=== PATIENT | male | born 1970 | race American Indian/Alaskan Native ===

== ENCOUNTER 2020-05-06 21:54 | Inpatient (IN) | payer OTHER ==
--- NOTE | 2020-05-06 22:23 | Emergency Department Report ---
ED General Adult HPI - General Chief complaint: Altered Mental Status Stated complaint: patient is confused and does not articulate a complaint PUI?: No Time Seen by Provider: 05/06/20 22:14 Source: patient, RN/MD, EMS ( EMS documentation not available at time of chart dictation ), RN notes reviewed Mode of arrival: Stretcher Limitations: Altered Mental Status, Physical Limitation - History of Present Illness Initial comments: The patient was evaluated in the emergency department for symptoms described in the history of present illness. He/she was evaluated in the context of the global COVID-19 pandemic, which necessitated consideration that the patient might be at risk for infection with the virus that causes COVID-19. Institutional protocols and algorithms that pertain to the evaluation of patients at risk for COVID-19 are in a state of rapid change based on information released by regulatory bodies including the CDC and federal and state organizations. These policies and algorithms were followed during the giancarlo issa's care in the emergency department. Please note that these policies, procedures and recommendations changed on a rapid basis. The patient is a 49-year-old gentleman. He is not known to myself previously. He may have a history of stroke and/or seizure. It is unclear what his prior diagnoses are. The patient is brought to the hospital by emergency medical services. He is awake, follows commands, but confused. He only responds "yes." Nursing team informs me that the patient is brought to the hospital for shaking activity, confusion, change in speech pattern, and right arm shaking. His last known well time is not known. It is not known who contacted 911. The listed phone number goes right to voicemail, and patient not currently accompanied by friends, family, loved one for additional information/collateral information. The patient himself is currently awake, but confused, and is not able to describe the qualitative nature of his symptoms, exacerbating factors, relieving factors, aggravating factors, and simply answers "yes." EMS documentation not available at this time for my review. -: unknown Quality: other Consistency: other Improves with: other Worsens with: other Associated Symptoms: other Treatments Prior to Arrival: other - Related Data Home Medications Medication Instructions Recorded Confirmed Last Taken Aspirin [Adult Aspirin] 81 mg PO QDAY 05/07/20 05/07/20 Unknown Atorvastatin Calcium [Lipitor] 80 mg PO QDAY 05/07/20 05/07/20 Unknown Escitalopram [Lexapro] 10 mg PO DAILY 05/07/20 05/07/20 Unknown Lisinopril/Hydrochlorothiazide 1 each PO QDAY 05/07/20 05/07/20 Unknown [Zestoretic 10-12.5 mg Tablet] levETIRAcetam [Keppra TAB] 750 mg PO BID 05/07/20 05/07/20 Unknown Allergies Allergy/AdvReac Type Severity Reaction Status Date / Time No Known Allergies Allergy Unverified 05/07/20 00:16 ED Review of Systems ROS: Stated complaint: SEIZURES Other details as noted in HPI Comment: Unobtainable due to pts medical conditions ED Past Medical Hx - Medications Home Medications: Home Medications Medication Instructions Recorded Confirmed Last Taken Type Aspirin [Adult Aspirin] 81 mg PO QDAY 05/07/20 05/07/20 Unknown History Atorvastatin Calcium [Lipitor] 80 mg PO QDAY 05/07/20 05/07/20 Unknown History Escitalopram [Lexapro] 10 mg PO DAILY 05/07/20 05/07/20 Unknown History Lisinopril/Hydrochlorothiazide 1 each PO QDAY 05/07/20 05/07/20 Unknown History [Zestoretic 10-12.5 mg Tablet] levETIRAcetam [Keppra TAB] 750 mg PO BID 05/07/20 05/07/20 Unknown History ED Physical Exam - General Limitations: Altered Mental Status, Physical Limitation General appearance: anxious, obese - Head Head exam: Present: atraumatic, normocephalic - Eye Eye exam: Present: normal appearance, PERRL, EOMI - ENT ENT exam: Present: normal exam, normal orophraynx, mucous membranes moist, normal external ear exam - Neck Neck exam: Present: normal inspection, full ROM. Absent: tenderness, menin gismus - Respiratory Respiratory exam: Present: normal lung sounds bilaterally. Absent: respiratory distress, wheezes, rales, rhonchi, stridor, decreased breath sounds - Cardiovascular Cardiovascular Exam: Present: regular rate, normal rhythm, normal heart sounds. Absent: bradycardia, tachycardia, irregular rhythm, systolic murmur, diastolic murmur, rubs, gallop - GI/Abdominal GI/Abdominal exam: Present: soft. Absent: distended, tenderness, guarding, rebound, rigid, pulsatile mass - Rectal Rectal exam: Present: deferred - Extremities Exam Extremities exam: Present: normal inspection, full ROM, pedal edema (1+ edema in the bilateral lower extremities), other (2+ pulses noted in the bilateral upper and lower extremities. There is no palpable cord. negative Homans sign. Muscular compartments are soft. The pelvis is stable.). Absent: calf tenderness - Back Exam Back exam: Present: normal inspection, full ROM. Absent: tenderness, CVA tenderness (R), CVA tenderness (L), paraspinal tenderness, vertebral tenderness - Neurological Exam Neurological exam: Present: altered, motor sensory deficit (There is 4 out of 5 strength right leg. There is 5 out of 5 strength right arm. There is 5 out of 5 strength left arm and left leg. Sensation is intact to pinch in 4 extremities.), other (There is no facial droop. The tongue is midline. Extraocular movements are intact bilaterally.) - Psychiatric Psychiatric exam: Present: normal affect, normal mood - Skin Skin exam: Present: warm, dry, intact, normal color. Absent: rash ED Course Vital Signs 05/06/20 05/06/20 05/06/20 22:15 22:20 22:30 Temperature 98.4 F Pulse Rate 64 62 68 Respiratory 16 Rate Blood Pressure 127/83 132/81 Blood Pressure 127/63 [Left] O2 Sat by Pulse 100 100 100 Oximetry O2 Sat by Pulse Oximetry [ Digit-Finger] 05/06/20 05/06/20 05/06/20 22:45 23:01 23:32 Temperature Pulse Rate 86 57 L 68 Respiratory Rate Blood Pressure 125/89 125/89 125/89 Blood Pressure [Left] O2 Sat by Pulse 100 98 100 Oximetry O2 Sat by Pulse Oximetry [ Digit-Finger] 05/06/20 05/07/20 05/07/20 23:45 00:01 00:09 Temperature Pulse Rate 63 58 L Respiratory 16 Rate Blood Pressure 136/78 137/78 Blood Pressure [Left] O2 Sat by Pulse 99 99 Oximetry O2 Sat by Pulse 99 Oximetry [ Digit-Finger] - Reevaluation(s) Reevaluation #1: 05/06/20 22:32 Differential diagnosis, including but not limited to: Stroke, seizure, pneumonia, urinary tract infection, dedication noncompliance, electrolyte derangement, drug abuse Assessment and plan: 49-year-old gentleman with seizure versus stroke. After my initial assessment, I was able to access the patient's EMS records, and also speak to his . As per EMS documentation, patient's family called 911 because the patient was shaking and may have had a seizure. As per EMS documentation, patient was complaining of tingling and pain to his right hand. EMS documents that patient had a stroke March 2020. They also indicate that since the stroke, the patient has had a right-sided deficit with weakness and trouble speaking. EMS documents normal vital signs in the field, and that the patient is ANO x2. The patient's is also currently at the bedside. She believes his last known well time is 9:00 PM. She also corroborates the aforementioned. She also states the patient was admitted to [facility] last month, and believes that he was diagnosed with seizure versus stroke or both. She endorses that the patient is taking his Keppra, denies fever, nausea, vomiting, diarrhea, urinary symptoms, and recreational drug use. He only smokes black in [place] as per his . I had extensive discussion with the patient's regarding risks and benefits of TPA. We specifically discussed the risks of hemorrhagic conversion. At the moment, she is not interested in TPA. In addition, given her endorsements and EMS documentation of stroke last month at another hospital, TPA is relatively contraindicated. We will obtain CT scan of the brain, CT angiogram head and neck, seek alternative causes for patient's convulsion, start Keppra therapy, and reassess after initial data points. Accu-Chek in the ER is currently 99. 05/06/20 22:[address] scan of the brain negative for acute findings. Patient more awake. Alert to name, able to identify his . As per my discussion with neurology Dr. Colmenares, we both agree this is unlikely to be an ischemic stroke, much more likely to be a seizure, and as per recent history of ischemic strokes last month as per family, and EMS documentation, TPA relatively contraindicated. I also had an extensive discussion with the patient and his regarding risks, benefits of TPA, and neither of them are interested in this medication at this time, which I agree with and think is reasonable. Reevaluation #2: 05/07/20 00:09 CT angiogram neck negative. Laboratory studies unremarkable. Patient resting comfortably in stretcher, and in no acute distress. 05/07/20 00:30 ct angio head negative Dr Tricia Cordero to admit patient informed and updated hes agreeable to the plan of care No further seizure/convulsive events noted. called , no answer, left voice mail for call back 05/07/20 00:33 - Pulse Oximetry Interpretation Digit-Finger Initial Pulse Oximetry Readin O2 Sat by Pulse Oximetry: 99 Actions Taken: none ED Medical Decision Making - Lab Data Result diagrams: 05/06/20 22:39 05/06/20 22:39 Vital Signs 05/06/20 22:37 O2 Sat by Pulse 99 Oximetry [ Digit-Finger] Vital Signs 05/06/20 22:54 O2 Sat by Pulse 99 Oximetry [ Digit-Finger] Lab Results 05/06/20 05/06/20 05/06/20 Range/Units 22:18 22:39 22:39 WBC 8.5 (4.5-11.0) K/mm3 RBC 4.11 (3.65-5.03) M/mm3 Hgb 13.8 (11.8-15.2) gm/dl Hct 40.1 (35.5-45.6) % MCV 98 H (84-94) fl MCH 34 H (28-32) pg MCHC 34 (32-34) % RDW 13.0 L (13.2-15.2) % Plt Count 131 L (140-440) K/mm3 Baso % (Auto) Anesthesiology Physician PT 13.0 (12.2-14.9) Sec. INR 1.00 (0.87-1.13) APTT 24.7 (24.2-36.6) Sec. Thrombin Time 16.6 (15.1-19.6) Sec. Sodium (137-145) mmol/L Potassium (3.6-5.0) mmol/L Chloride (98-107) mmol/L Carbon Dioxide (22-30) mmol/L Anion Gap mmol/L BUN (9-20) mg/dL Creatinine (0.8-1.3) mg/dL Estimated GFR ml/min BUN/Creatinine Ratio % Glucose (75-100) mg/dL POC Glucose 99 (70-105) mg/dL Calcium (8.4-10.2) mg/dL Magnesium (1.7-2.3) mg/dL Total Bilirubin (0.1-1.2) mg/dL AST (5-40) units/L ALT (7-56) units/L Alkaline Phosphatase (35-129) units/L Total Creatine Kinase (55-170) units/L CK-MB (CK-2) (0.0-4.0) ng/mL CK-MB (CK-2) Rel Index (0-4) Troponin T (0.00-0.029) ng/mL Total Protein (6.3-8.2) g/dL Albumin (3.9-5) g/dL Albumin/Globulin Ratio % Plasma/Serum Alcohol (0-0.07) % 05/06/20 05/06/20 Range/Units 22:39 22:39 WBC (4.5-11.0) K/mm3 RBC (3.65-5.03) M/mm3 Hgb (11.8-15.2) gm/dl Hct (35.5-45.6) % MCV (84-94) fl MCH (28-32) pg MCHC (32-34) % RDW (13.2-15.2) % Plt Count (140-440) K/mm3 Baso % (Auto) PT (12.2-14.9) Sec. INR (0.87-1.13) APTT (24.2-36.6) Sec. Thrombin Time (15.1-19.6) Sec. Sodium 136 L (137-145) mmol/L Potassium 3.7 (3.6-5.0) mmol/L Chloride 100.1 (98-107) mmol/L Carbon Dioxide 28 (22-30) mmol/L Anion Gap 12 mmol/L BUN 21 H (9-20) mg/dL Creatinine 0.9 (0.8-1.3) mg/dL Estimated GFR > 60 ml/min BUN/Creatinine Ratio 23 % Glucose 108 H (75-100) mg/dL POC Glucose (70-105) mg/dL Calcium 9.3 (8.4-10.2) mg/dL Magnesium 2.00 (1.7-2.3) mg/dL Total Bilirubin 1.00 (0.1-1.2) mg/dL AST 24 (5-40) units/L ALT 14 (7-56) units/L Alkaline Phosphatase 74 (35-129) units/L Total Creatine Kinase 68 (55-170) units/L CK-MB (CK-2) < 1.0 (0.0-4.0) ng/mL CK-MB (CK-2) Rel Index 1.4 (0-4) Troponin T < 0.010 (0.00-0.029) ng/mL Total Protein 6.8 (6.3-8.2) g/dL Albumin 4.5 (3.9-5) g/dL Albumin/Globulin Ratio 2.0 % Plasma/Serum Alcohol < 0.01 (0-0.07) % - EKG Data -: EKG Interpreted by In EKG shows normal: sinus rhythm Rate: normal - EKG Data When compared to previous EKG there are: previous EKG unavailable 05/06/20 22:39 Time of interpretation, 10: 40 1 PM Sinus rhythm, 61 bpm. Right axis deviation. Left posterior fascicular block. Incomplete right bundle branch block. QTC within normal limits. Left ventricular hypertrophy. Abnormal EKG. Not a STEMI. No prior for comparison. - Radiology Data Radiology results: pending, report reviewed, image reviewed CT HEAD WITHOUT CONTRAST INDICATION / CLINICAL INFORMATION: Stroke symptoms. TECHNIQUE: All CT scans at this location are performed using CT dose reduction for ALARA by means of automated exposure control. COMPARISON: None available. FINDINGS: HEMORRHAGE: None. EXTRA-AXIAL SPACES: Normal in size and morphology for the patient's age. VENTRICULAR SYSTEM: Normal in size and morphology for the patient's age. CEREBRAL PARENCHYMA: No significant abnormality. No acute territorial infarct. MIDLINE SHIFT OR HERNIATION: None. CEREBELLUM / BRAINSTEM: No significant abnormality. ORBITS: Normal as visualized. SOFT TISSUES of HEAD: No significant abnormality. CALVARIUM: No significant abnormality. PARANASAL SINUSES / MASTOID AIR CELLS: Polypoid mucosal thickening noted of the left maxillary sinus. ADDITIONAL FINDINGS: None. IMPRESSION: 1. No acute intracranial abnormality. CODE STROKE: Time of Communication (STAIN APPLICATOR/CDT): 2144 Licensed Practitioner Receiving Report: Dr. Carver ([facility]) X-ray the chest is negative for acute findings. Critical care attestation.: If time is entered above; I have spent that time in minutes in the direct care of this critically ill patient, excluding procedure time. ED Disposition Clinical Impression: History of seizure, History of stroke, Right sided weakness, Speech disturbance Disposition: OP ADMIT IP TO THIS HOSP Is pt being admited?: Yes Does the pt Need Aspirin: Yes Condition: Good Referrals: PRIMARY CARE, [Primary Care Provider] - 3-5 Days - Assessment Assessment Interval: Baseline - Level of Consciousness 1a. Level of Consciousness: alert/keenly responsive - LOC Questions 1b. LOC Questions: answers 1 question correctly - LOC Command 1c. LOC Commands: performs tasks correctly - Best Gaze 2. Best Gaze: normal - Visual 3. Visual: no visual loss - Facial Palsy 4. Facial Palsy: normal symmetrical movement - Motor Arm 5a. Motor Arm Left: no drift 5b. Motor Arm Right: drift - Motor Leg 6a. Motor Leg Left: no drift 6b. Motor Leg Right: drift - Limb Ataxia 7. Limb Ataxia: absent - Sensory 8. Sensory: normal - Best Language 9. Best Language: mild/moderate aphasia - Dysarthria 10. Dysarthria: normal - Extinction and Inattention 11. Extinction/Inattention: no abnormality - Scoring Total Score: 4 Stroke Severity: Minor Stroke
[2020-05-06] MEDS ORDERED: LACTATED RINGERS 1,000 ML IV ONE (22:36)
[2020-05-06] MEDS ORDERED: levETIRAcetam 1000 MG/NS 0.75% 1,000 MG/100 ML BAG IV ONE (22:36)
[2020-05-06] MEDS ORDERED: ASPIRIN 81 MG TAB CHEW PO ONE (22:49)
--- NOTE | 2020-05-06 22:51 | Emergency Department Report ---
Blank Doc - Documentation Documentation: [facility] Consult Note # Demographics Consult Type: 0-6 hour Stroke First Name: Evaristo Last Name: Remy Date of : 1970 Age: 49 Gender: male Time of initial page ([place] ): 05-06-2020, 20:22 Time of return call ([place] ): 05-06-2020, 20:22 # HPI Additional History: pt presents from home, was complaining of right arm tingling, some shaking. not responding for 3 minutes. reported prior stroke. some difficulty speaking which is 2100 last well, aphasia and right hand numbness and tremors. was evaluated recently for stroke vs seizure. on keppra after his last presentation Context/Pre-existing conditions: pre-existing speech problem # Scores Time of exam and NIHSS ([facility]): 05-06-2020, 20:32 Level of Consciousness 1a: [0] = Alert; keenly responsive LOC Questions 1b: [2] = Answers neither correctly LOC Commands 1c: [0] = Performs both tasks correctly Best Gaze 2: [0] = Normal Visual 3: [0] = No visual loss Facial Palsy 4: [0] = Normal symmetrical movements Motor Arm Left 5a: [0] = No drift Motor Arm Right 5b: [0] = No drift Motor Leg Left 6a: [0] = No drift Motor Leg Right 6b: [0] = No drift Limb Ataxia 7: [0] = Absent Sensory 8: [0] = Normal Best Language 9: [1] = [id number] aphasia Dysarthria 10: [0] = Normal Extinction and Inattention 11: [0] = No abnormality NIHSS Total: 3 # PMH-FH-SH Past Medical History: stroke # Data Time Head CT personally ready by me ([place] ): 05-06-2020, 20:[address]: preliminarily reviewed by me, please refer to radiology read for official reading, no bleed # Assessment Impression: Stroke Mimic, 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 given recurrent nature stroke much less likely # Plan Thrombolytic/Intervention: NOT IV Alteplase or IA Intervention Alteplase Exclusion (<3 hour window): stroke within 3 months, other (see below) Alteplase Exclusion: unclear episode last month, suspecting cause other than stroke for recurrent episode Intraarterial Exclusion: clinically not consistent with stroke Imaging: (urgency: STAT in ED): CT Angiogram Head and CT Angiogram Neck AND call back with results if abnormal Imaging: (urgency: routine admission): MRI Brain with AND without contrast Diagnostic Test: EEG Therapy/Evaluation: NPO until swallow evaluation, PT/OT evaluation, speech/swallow consultation Medication: levetiracetam (Keppra) 1000 mg twice daily Other: seizure precautions, I have discussed my recommendations with the referring provider Disposition: admit # Logistics Telemedicine: Interactive 2 way audio and visual telecommunication technology was utilized during this visit
--- NOTE | 2020-05-06 22:51 | Cat Scan Report ---
CT HEAD WITHOUT CONTRAST INDICATION / CLINICAL INFORMATION: Stroke symptoms. TECHNIQUE: All CT scans at this location are performed using CT dose reduction for ALARA by means of automated e xposure control. COMPARISON: None available. FINDINGS: HEMORRHAGE: None. EXTRA-AXIAL SPACES: Normal in size and morphology for the patient's age. VENTRICULAR SYSTEM: Normal in size and morphology for the patient's age. CEREBRAL PARENCHYMA: No significant abnormality. No acute territorial infarct. MIDLINE SHIFT OR HERNIATION: None. CEREBELLUM / BRAINSTEM: No significant abnormality. ORBITS: Normal as visualized. SOFT TISSUES of HEAD: No significant abnormality. CALVARIUM: No significant abnormality. PARANASAL SINUSES / MASTOID AIR CELLS: Polypoid mucosal thickening noted of the left maxillary sinus. ADDITIONAL FINDINGS: None. IMPRESSION: 1. No acute intracranial abnormality. CODE STROKE: Time of Communication (SUPERINTENDENT AUTOMOTIVE/CDT): 2144 Licensed Practitioner Receiving Report: Dr. Carver ([facility]) Signer Name: Dex Eddy MD Signed: 05/06/2020 10:46 PM Workstation Name: [id number]
[2020-05-06 23:08] LABS: Hematocrit 40.1 % (35.5-45.6); Hemoglobin 13.8 gm/dl (11.8-15.2); Mean Corpuscular HGB Conc 34 % (32-34); Mean Corpuscular Volume 98 fl (84-94); Platelet Count 131 K/mm3 (140-440); Red Blood Count 4.11 M/mm3 (3.65-5.03)
[2020-05-06 23:11] LABS: Partial Thromboplastin Time 24.7 Sec. (24.2-36.6); Thrombin Time 16.6 Sec. (15.1-19.6)
[2020-05-06 23:16] LABS: Creatine Kinase MB < 1.0 ng/mL (0.0-4.0)
[2020-05-06 23:17] LABS: Alanine Aminotransferase 14 units/L (7-56); Albumin 4.5 g/dL (3.9-5); BUN/Creatinine Ratio 23; Blood Urea Nitrogen 21 mg/dL (9-20); Calcium 9.3 mg/dL (8.4-10.2); Hemolysis Index 5
--- NOTE | 2020-05-06 23:21 | XRay Report ---
CHEST 1 VIEW 05/06/2020 10:13 PM INDICATION / CLINICAL INFORMATION: sz vs cva. COMPARISON: None available. FINDINGS: SUPPORT DEVICES: None. HEART / MEDIASTINUM: No significant abnormality. LUNGS / PLEURA: No significant pulmonary or pleural abnormality. No pneumothorax. ADDITIONAL FINDINGS: No significant additional findings. IMPRESSION: 1. No acute findings. Signer Name: Dipak Hannon MD Signed: 05/06/2020 11:16 PM Workstation Name: [id number]
[2020-05-06 23:48] LABS: Total Cells Counted 100
[2020-05-06 23:49] LABS: RBC Morphology Normal
--- NOTE | 2020-05-07 00:05 | Cat Scan Report ---
CTA NECK WITH CONTRAST HISTORY: Right-sided weakness COMPARISON: None. TECHNIQUE: Routine CTA of the neck was performed. 3-D/MIP reformats were postprocessed. Percentage s tenosis is determined by direct quantitative measurements of diseased internal carotid artery diamete r compared with normal distal internal carotid artery reference segments or by criteria similar to NA SCET where applicable.All CT scans at this location are performed using CT dose reduction for ALARA b y means of automated exposure control CONTRAST: 100 ml of Omnipaque 350 FINDINGS: Aortic arch: No significant abnormality. Cervical vertebral arteries: No significant abnormality. Common carotid arteries: No significant abnormality. Carotid bifurcations: Normal bilaterally Cervical internal carotid arteries: No significant abnormality. Additional findings: None. IMPRESSION: 1. No significant abnormality. Signer Name: Reggie Ortiz MD Signed: 05/07/2020 12:01 AM Workstation Name: [id number]
--- NOTE | 2020-05-07 00:14 | Cat Scan Report ---
CTA HEAD WITH CONTRAST HISTORY: Slurred speech; right-sided weakness COMPARISON: None. TECHNIQUE: Routine non-contrast CT Head, CTA of the head and post-contrast CT Head are performed. 3-D /MIP reformats postprocessed. All CT scans at this location are performed using CT dose reduction for ALARA by means of automated exposure control CONTRAST: 100 ml of Omnipaque 350 FINDINGS: CTA Head: Intracranial vertebral arteries: No significant abnormality. Basilar artery: No significant abnormality. Posterior cerebral arteries: No significant abnormality. Intracranial internal carotid arteries: No significant abnormality. Anterior cerebral arteries: No significant abnormality. Middle cerebral arteries: No significant abnormality. Dural venous sinuses:Not optimally opacified. No significant abnormality. Additional findings: None. IMPRESSION: 1. No significant abnormality. Signer Name: Reggie Ortiz MD Signed: 05/07/2020 12:10 AM Workstation Name: [id number]
[2020-05-07] MEDS ORDERED: ACETAMINOPHEN 325 MG TAB PO PRN (02:02)
[2020-05-07] MEDS ORDERED: ONDANSETRON 4 MG/2 ML INJ IV PRN (02:03)
--- NOTE | 2020-05-07 03:37 | History and Physical Report ---
History of Present Illness Date of examination: 05/07/20 Date of admission: 05/07/20 00:32 Chief complaint: Altered mental status History of present illness: History of presenting illness, patient is a 50-year-old male with past medical history of seizure disorder, cerebrovascular accident with right-sided weakness and speech impairment presenting with altered mental status. Patient is noncommunicative and was alone during evaluation with no body history gave a ccount of what happened. History is based on information from the emergency room and patient's medical record. There is worsening speech impairment , generalized weakness, and shaking sensation of the body at home prior to presentation. Past History Past Medical History: seizures, stroke Past Surgical History: No surgical history Social history: no significant social history Family history: no significant family history Medications and Allergies Allergies Allergy/AdvReac Type Severity Reaction Status Date / Time No Known Allergies Allergy Unverified 05/07/20 00:16 Home Medications Medication Instructions Recorded Confirmed Last Taken Type Aspirin [Adult Aspirin] 81 mg PO QDAY 05/07/20 05/07/20 Unknown History Atorvastatin Calcium [Lipitor] 80 mg PO QDAY 05/07/20 05/07/20 Unknown History Escitalopram [Lexapro] 10 mg PO DAILY 05/07/20 05/07/20 Unknown History Lisinopril/Hydrochlorothiazide 1 each PO QDAY 05/07/20 05/07/20 Unknown History [Zestoretic 10-12.5 mg Tablet] levETIRAcetam [Keppra TAB] 750 mg PO BID 05/07/20 05/07/20 Unknown History Active Meds: Active Medications Acetaminophen (Acetaminophen 325 Mg Tab) 650 mg PO Q4H PRN PRN Reason: Headache Aspirin (Aspirin 325 Mg Tab) 325 mg PO QDAY JOSE Ondansetron HCl (Ondansetron 4 Mg/2 Ml Inj) 4 mg IV Q8H PRN PRN Reason: Nausea And Vomiting Review of Systems Constitutional: weakness, no fever, no chills Eyes: bilateral: other (NO BILATERAL EYE SYMPTOM) Ears, nose, mouth and throat: no ear pain Cardiovascular: no chest pain, no palpitations, no rapid/irregular heart beat, no syncope, no lightheadedness, no shortness of breath Respiratory: no cough Gastrointestinal: no abdominal pain, no nausea, no vomiting Genitourinary Male: no dysuria Rectal: no pain Musculoskeletal: no neck stiffness, no neck pain Integumentary: no rash, no pruritis, no redness, no sores Neurological: weakness, seizures, no paralysis, no parathesias, no numbness, no tingling, no syncope, no tremors, no vertigo, no headaches Psychiatric: no anxiety, no depression Endocrine: no polydipsia, no polyuria, no nocturia, no palpatations Hematologic/Lymphatic: no easy bruising, no easy bleeding Exam - Constitutional Vitals: Temp Pulse Resp BP Pulse Ox 98.4 F 67 14 139/82 99 05/06/20 22:20 05/07/20 01:01 05/07/20 00:45 05/07/20 01:01 05/07/20 01:01 General appearance: Present: no acute distress - EENT Eyes: Present: PERRL, EOM intact ENT: hearing intact - Neck Neck: Present: supple, normal ROM - Respiratory Respiratory effort: normal - Cardiovascular Rhythm: regular Heart Sounds: Present: S1 & S2. Absent: gallop, systolic murmur, diastolic murmur - Extremities Extremities: no ischemia, No edema Peripheral Pulses: within normal limits - Abdominal General gastrointestinal: Present: soft, non-tender, non-distended. Absent: tender, distended, rigid, hepatomegaly, splenomegaly Male genitourinary: Present: deferred - Rectal Rectal Exam: deferred - Integumentary Integumentary: Present: clear, warm, dry - Musculoskeletal Musculoskeletal: generalized weakness - Psychiatric Psychiatric: appropriate mood/affect - Neurologic Neurologic: no moves all extremities HEART Score - HEART Score Risk factors: 1-2 risk factors Troponin: Troponin T < 0.010 ng/mL (0.00-0.029) 05/06/20 22:39 Troponin: < normal limit - Critical Actions Critical Actions: 0-3 pts:0.9-1.7%risk of adverse cardiac event.Candidate for discharge Results - Labs CBC & Chem 7: 05/06/20 22:39 05/06/20 22:39 Labs: Laboratory Last Values WBC 8.5 K/mm3 (4.5-11.0) 05/06/20 22:39 RBC 4.11 M/mm3 (3.65-5.03) 05/06/20 22:39 Hgb 13.8 gm/dl (11.8-15.2) 05/06/20 22:39 Hct 40.1 % (35.5-45.6) 05/06/20 22:39 MCV 98 fl (84-94) H 05/06/20 22:39 MCH 34 pg (28-32) H 05/06/20 22:39 MCHC 34 % (32-34) 05/06/20 22:39 RDW 13.0 % (13.2-15.2) L 05/06/20 22:39 Plt Count 131 K/mm3 (140-440) L 05/06/20 22:39 Baso % (Auto) Sr. Director 05/06/20 22:39 Add Manual Diff Complete 05/06/20 22:39 Total Counted 100 05/06/20 22:39 Seg Neuts % (Manual) 68.0 % (40.0-70.0) 05/06/20 22:39 Lymphocytes % (Manual) 20.0 % (13.4-35.0) 05/06/20 22:39 Monocytes % (Manual) 10.0 % (0.0-7.3) H 05/06/20 22:39 Eosinophils % (Manual) 1.0 % (0.0-4.3) 05/06/20 22:39 Basophils % (Manual) 1.0 % (0.0-1.8) 05/06/20 22:39 Nucleated RBC % Not Reportable 05/06/20 22:39 Seg Neutrophils # Man 5.8 K/mm3 (1.8-7.7) 05/06/20 22:39 Band Neutrophils # 0.0 K/mm3 05/06/20 22:39 Lymphocytes # (Manual) 1.7 K/mm3 (1.2-5.4) 05/06/20 22:39 Abs React Lymphs (Man) 0.0 K/mm3 05/06/20 22:39 Monocytes # (Manual) 0.9 K/mm3 (0.0-0.8) H 05/06/20 22:39 Eosinophils # (Manual) 0.1 K/mm3 (0.0-0.4) 05/06/20 22:39 Basophils # (Manual) 0.1 K/mm3 (0.0-0.1) 05/06/20 22:39 Metamyelocytes # 0.0 K/mm3 03/23/21 22:39 Myelocytes # 0.0 K/mm3 05/06/20 22:39 Promyelocytes # 0.0 K/mm3 05/06/20 22:39 Blast Cells # 0.0 K/mm3 05/06/20 22:39 WBC Morphology Not Reportable 05/06/20 22:39 Hypersegmented Neuts Not Reportable 05/06/20 22:39 Hyposegmented Neuts Not Reportable 05/06/20 22:39 Hypogranular Neuts Not Reportable 05/06/20 22:39 Smudge Cells Not Reportable 05/06/20 22:39 Toxic Granulation Not Reportable 05/06/20 22:39 Toxic Vacuolation Not Reportable 05/06/20 22:39 Dohle Bodies Not Reportable 05/06/20 22:39 Pelger-Huet Anomaly Not Reportable 05/06/20 22:39 Neo Rods Not Reportable 05/06/20 22:39 Platelet Estimate Not Reportable 05/06/20 22:39 Clumped Platelets Not Reportable 05/06/20 22:39 Plt Clumps, EDTA Not Reportable 05/06/20 22:39 Large Platelets Not Reportable 05/06/20 22:39 Giant Platelets Not Reportable 05/06/20 22:39 Platelet Satelliting Not Reportable 05/06/20 22:39 Plt Morphology Comment Not Reportable 05/06/20 22:39 RBC Morphology Normal 05/06/20 22:39 Dimorphic RBCs Not Reportable 05/06/20 22:39 Polychromasia Not Reportable 05/06/20 22:39 Hypochromasia Not Reportable 05/06/20 22:39 Poikilocytosis Not Reportable 05/06/20 22:39 Anisocytosis Not Reportable 05/06/20 22:39 Microcytosis Not Reportable 05/06/20 22:39 Macrocytosis Not Reportable 05/06/20 22:39 Spherocytes Not Reportable 05/06/20 22:39 Pappenheimer Bodies Not Reportable 05/06/20 22:39 Sickle Cells Not Reportable 05/06/20 22:39 Target Cells Not Reportable 05/06/20 22:39 Tear Drop Cells Not Reportable 05/06/20 22:39 Ovalocytes Not Reportable 05/06/20 22:39 Helmet Cells Not Reportable 05/06/20 22:39 [place] Bodies Not Reportable 05/06/20 22:39 [place] Rings Not Reportable 05/06/20 22:39 [place] Cells Not Reportable 05/06/20 22:39 Bite Cells Not Reportable 05/06/20 22:39 Crenated Cell Not Reportable 05/06/20 22:39 Elliptocytes Not Reportable 05/06/20 22:39 Acanthocytes (Spur) Not Reportable 05/06/20 22:39 Rouleaux Not Reportable 05/06/20 22:39 Hemoglobin C Crystals Not Reportable 05/06/20 22:39 Schistocytes Not Reportable 05/06/20 22:39 Malaria parasites Not Reportable 05/06/20 22:39 Edis Bodies Not Reportable 05/06/20 22:39 Hem Pathologist Commnt No 05/06/20 22:39 PT 13.0 Sec. (12.2-14.9) 05/06/20 22:39 INR 1.00 (0.87-1.13) 05/06/20 22:39 APTT 24.7 Sec. (24.2-36.6) 05/06/20 22:39 Thrombin Time 16.6 Sec. (15.1-19.6) 05/06/20 22:39 Sodium 136 mmol/L (137-145) L 05/06/20 22:39 Potassium 3.7 mmol/L (3.6-5.0) 05/06/20 22:39 Chloride 100.1 mmol/L (98-107) 05/06/20 22:39 Carbon Dioxide 28 mmol/L (22-30) 05/06/20 22:39 Anion Gap 12 mmol/L 05/06/20 22:39 BUN 21 mg/dL (9-20) H 05/06/20 22:39 Creatinine 0.9 mg/dL (0.8-1.3) 05/06/20 22:39 Estimated GFR > 60 ml/min 05/06/20 22:39 BUN/Creatinine Ratio 23 % 05/06/20 22:39 Glucose 108 mg/dL (75-100) H 05/06/20 22:39 POC Glucose 99 mg/dL (70-105) 05/06/20 22:18 Calcium 9.3 mg/dL (8.4-10.2) 05/06/20 22:39 Magnesium 2.00 mg/dL (1.7-2.3) 05/06/20 22:39 Total Bilirubin 1.00 mg/dL (0.1-1.2) 05/06/20 22:39 AST 24 units/L (5-40) 05/06/20 22:39 ALT 14 units/L (7-56) 05/06/20 22:39 Alkaline Phosphatase 74 units/L (35-129) 05/06/20 22:39 Total Creatine Kinase 68 units/L (55-170) 05/06/20 22:39 CK-MB (CK-2) < 1.0 ng/mL (0.0-4.0) 05/06/20 22:39 CK-MB (CK-2) Rel Index 1.4 (0-4) 05/06/20 22:39 Troponin T < 0.010 ng/mL (0.00-0.029) 05/06/20 22:39 Total Protein 6.8 g/dL (6.3-8.2) 05/06/20 22:39 Albumin 4.5 g/dL (3.9-5) 05/06/20 22:39 Albumin/Globulin Ratio 2.0 % 05/06/20 22:39 Plasma/Serum Alcohol < 0.01 % (0-0.07) 05/06/20 22:39 Assessment and Plan - Patient Problems (1) Altered mental status Current Visit: Yes Status: Acute Plan to address problem: 1. NEUROLOGY CONSULT (2) History of seizure Current Visit: Yes Status: Acute Plan to address problem: 1. NEUROLOGY CONSULT 2. SEIZURE PRECAUTIONS 3. I.V ATIVAN PRN SEIZURE 4. SEIZURE MEDICATION TO BE CONTINUED (3) Right sided weakness Current Visit: Yes Status: Acute Plan to address problem: 1. NEUROLOGY CONSULT 2. PHYSICAL THERAPY (4) Speech disturbance Current Visit: Yes Status: Acute Plan to address problem: 1. NPO UNTIL SWALLOW TEST PASSED 2. NEUROLOGY CONSULT 3. SPEECH THERAPY CONSULT
[2020-05-07 05:19] LABS: Amphetamine Screen,Urine PRESUMPTIVE NEGATIVE; Benzodiazepines Screen,Urine PRESUMPTIVE NEGATIVE; Cannabinoid Screen,Urine PRESUMPTIVE NEGATIVE; Cocaine Screen,Urine PRESUMPTIVE NEGATIVE; Methadone Screen,Urine PRESUMPTIVE NEGATIVE; Opiate Screen,Urine PRESUMPTIVE NEGATIVE
[2020-05-07 05:38] LABS: Bilirubin,Urine NEG (Negative); Blood,Urine NEG (Negative); Color,Urine Yellow (Yellow); Mucus,Urine FEW /HPF; Protein,Urine <15 mg/dL mg/dL (Negative); Urobilinogen,Urine < 2.0 mg/dL (<2.0); WBC,Urine < 1.0 /HPF (0.0-6.0)
[2020-05-07] MEDS: levETIRAcetam 750 MG in DEXTROSE 5% IN WATER 100 ML IV SCH ×2 (09:13→21:29)
[2020-05-07] MEDS: ASPIRIN 325 MG TAB PO SCH (09:18)
--- NOTE | 2020-05-07 11:21 | Consultation ---
History of Present Illness Consult date: 05/07/20 Reason for Consult: AMS Chief complaint: AMS History of present illness: 50 yo male with possible stroke and seizure d/o who presents with a possible event with noted right-sided tremors or shaking and with teleneurology evaluation in the ED with a noted NIHSS of 3. Patient is noted to be aphasic (expressive > receptive) during evaluation, so limited history is obtained at present. Patient states 'yes" to a hx of seizures. Noted with Keppra 750 bid on home medication list and aspirin 81 mg also on home medication list. Past History Past Medical History: seizures, stroke Past Surgical History: No surgical history Social history: no significant social history Family history: no significant family history Medications and Allergies Allergies Allergy/AdvReac Type Severity Reaction Status Date / Time No Known Allergies Allergy Unverified 05/07/20 00:16 Home Medications Medication Instructions Recorded Confirmed Last Taken Type Aspirin [Adult Aspirin] 81 mg PO QDAY 05/07/20 05/07/20 Unknown History Atorvastatin Calcium [Lipitor] 80 mg PO QDAY 05/07/20 05/07/20 Unknown History Escitalopram [Lexapro] 10 mg PO DAILY 05/07/20 05/07/20 Unknown History Lisinopril/Hydrochlorothiazide 1 each PO QDAY 05/07/20 05/07/20 Unknown History [Zestoretic 10-12.5 mg Tablet] levETIRAcetam [Keppra TAB] 750 mg PO BID 05/07/20 05/07/20 Unknown History Active Meds: Active Medications Acetaminophen (Acetaminophen 325 Mg Tab) 650 mg PO Q4H PRN PRN Reason: Headache Aspirin (Aspirin 325 Mg Tab) 325 mg PO QDAY PENDING SALE TO [facility] Last Admin: 05/07/20 09:18 Dose: Not Given Documented by: Levetiracetam 750 mg/ Dextrose 107.5 mls @ 400 mls/hr IV Q12HR PENDING SALE TO [facility] Last Admin: 05/07/20 09:13 Dose: 400 mls/hr Documented by: Lorazepam (Lorazepam 2 Mg/Ml Vial) 1 mg IV Q1H PRN PRN Reason: Seizures Ondansetron HCl (Ondansetron 4 Mg/2 Ml Inj) 4 mg IV Q8H PRN PRN Reason: Nausea And Vomiting Review of Systems All systems: negative (as per HPI but limited by aphasia;) Physical Examination - Vital Signs Vital Signs: Vital Signs Pulse BP Pulse Ox 64 127/83 100 05/06/20 22:15 05/06/20 22:15 05/06/20 22:15 - Physical Exam Narrative exam: Gen: nad, well-nourished; Head: normocephalic; Eyes: no gaze deviation; no ptosis; ENT: normal vocalization; CVS: warm and well-perfused; Pulm: no respiratory distress; GI: appears non-distended; Ext: no cyanosis at distal extremities; Skin: no acute rash at distal extremities; Heme: no pathologic bruising or ecchymosis at distal extremities; Neuro: alert, oriented to age only, not name, month, year; +perseveration; slight dysarthria, expressive>receptive aphasia, CN 2 - PERRL, visual ortiz grossly intact but limited by aphasia, CN 3, 4, 6 - EOMI, CN 5 - facial sensation symmetric to light touch, CN 7 - facial movement symmetric except mild right orolabial droop, CN 8 - hearing grossly intact, CN 9, 10 - uvula midline, CN 11 - shrug appears symmetric, CN 12 - tongue midline; Motor - at least 4/5 in all exts; Sensory - light touch symmetric, Cerebellar - fnf/hts difficulty secondary to aphasia; noted right arm tremors, Gait - deferred secondary to fall risk; NIHSS (1a.) Level of Consciousness:0 (1b.) LOC Questions:1 (1c.) LOC Commands:1 (2.) Best Gaze:0 (3.) Visual:0 (4.) Facial Palsy:1 (5a.) Motor Arm, Left:0 (5b.) Motor Arm, Right:0 (6a.) Motor Leg, Left:0 (6b.) Motor Leg, Right:0 (7.) Limb Ataxia:0 (8.) Sensory:0 (9.) Best Language:2 (10.) Dysarthria:1 (11.) Extinction and Inattention:0 NIHSS Total Score: 6 Results - Laboratory Findings CBC and BMP: 05/06/20 22:39 05/06/20 22:39 Abnormal Lab Findings: Abnormal Labs 05/06/20 05/06/20 05/06/20 22:39 22:39 Unknown MCV 98 H MCH 34 H RDW 13.0 L Plt Count 131 L Monocytes % (Manual) 10.0 H Monocytes # (Manual) 0.9 H Sodium 136 L BUN 21 H Glucose 108 H POC Glucose Ur Specific [place] > 1.059 H 05/07/20 08:31 MCV MCH RDW Plt Count Monocytes % (Manual) Monocytes # (Manual) Sodium BUN Glucose POC Glucose 107 H Ur Specific [place] Assessment and Plan 50 yo male with stroke and seizure d/o who presents with encephalopathy. Patient's baseline is unclear to me. 1. Seizure - increase Keppra to 1000 mg po bid; EEG pending; MRI Brain w/ wo contrast. 2. Acute Ischemic Stroke - aspirin 325 mg po qday, staitn therapy for a goal LDL of 70; MRI Brain w/ wo contrast and if positive for an acute/subacute infarction, then recommend a TTEcho; confirm LDL/TSH, telemetry, SBP goal 160- 200 mmHg and DBP 80-100 mmHg for 24 more hours. PT/OT/ST/Swallow evaluation. Long-term risk-factor modification, including a strict diet/exercise regimen for secondary stroke prophylaxis. 3. Metabolic Encephalopathy - per primary team, if patient is not at his basline. Evan Manzo MD Neurology
[2020-05-07] MEDS: LORazepam 2 MG/ML VIAL IV PRN ×2 (18:35→20:34)
[2020-05-07] MEDS ORDERED: HALOPERIDOL LACTATE 5 MG/1 ML INJ IM ONE (20:44)
--- NOTE | 2020-05-08 08:28 | Progress Note ---
Assessment and Plan Assessment and plan: (1) Altered mental status Current Visit: Yes Status: Acute Plan to address problem: 1. NEUROLOGY CONSULT (2) History of seizure Current Visit: Yes Status: Acute Plan to address problem: 1. NEUROLOGY CONSULT 2. SEIZURE PRECAUTIONS 3. I.V ATIVAN PRN SEIZURE 4. SEIZURE MEDICATION TO BE CONTINUED (3) Right sided weakness Current Visit: Yes Status: Acute Plan to address problem: 1. NEUROLOGY CONSULT 2. PHYSICAL THERAPY (4) Speech disturbance Current Visit: Yes Status: Acute Plan to address problem: 1. NPO UNTIL SWALLOW TEST PASSED 2. NEUROLOGY CONSULT 3. SPEECH THERAPY CONSULT 05/08/2020 -I have seen and evaluated the patient, patient said he is feeling okay. Patient was alert and communicative but slow to respond, that is his baseline based on his . No seizure after admission. Patient was evaluated by his therapy. Neurology consulted and recommend MRI with and without contrast, increase Keppra to 1000mg BID but was not ordered. EEG ordered Increase the Keppra, waiting neurology if he still needs MRI. Patient was evaluated by physical therapy and recommend acute rehab. History Interval history: Patient was seen and evaluated this morning Patient did have seizure after admission Patient was communicative but slow to speak, which is his baseline based on his Hospitalist Physical - Physical exam Narrative exam: Not in cardiopulmonary distress. The patient appeared well nourished and normally developed. Vital signs as documented. Head exam is unremarkable. No scleral icterus . Neck is without jugular venous distension, thyromegaly, or carotid bruits. Lungs are clear to auscultation. Cardiac exam reveals regular rate and Rhythm. Abdominal exam reveals normal bowel sounds, nontender, no organomegaly. Extremities are nonedematous and both femoral and pedal pulses are normal. 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 Right-sided hemiparesis. Slow to respond thus his baseline - Constitutional Vitals: Temp Pulse Resp BP Pulse Ox 98.6 F 88 17 134/86 98 05/08/20 07:59 05/08/20 08:05 05/08/20 08:05 05/08/20 07:59 05/08/20 08:05 General appearance: Present: no acute distress HEART Score - HEART Score Risk factors: 1-2 risk factors Troponin: Troponin T < 0.010 ng/mL (0.00-0.029) 05/06/20 22:39 Troponin: < normal limit - Critical Actions Critical Actions: 0-3 pts:0.9-1.7%risk of adverse cardiac event.Candidate for discharge Results - Labs CBC & Chem 7: 05/06/20 22:39 05/06/20 22:39 Labs: Laboratory Last Values WBC 8.5 K/mm3 (4.5-11.0) 05/06/20 22:39 RBC 4.11 M/mm3 (3.65-5.03) 05/06/20 22:39 Hgb 13.8 gm/dl (11.8-15.2) 05/06/20 22:39 Hct 40.1 % (35.5-45.6) 05/06/20 22:39 MCV 98 fl (84-94) H 05/06/20 22:39 MCH 34 pg (28-32) H 05/06/20 22:39 MCHC 34 % (32-34) 05/06/20 22:39 RDW 13.0 % (13.2-15.2) L 05/06/20 22:39 Plt Count 131 K/mm3 (140-440) L 05/06/20 22:39 Baso % (Auto) Hair Colorist 05/06/20 22:39 Add Manual Diff Complete 05/06/20 22:39 Total Counted 100 05/06/20 22:39 Seg Neuts % (Manual) 68.0 % (40.0-70.0) 05/06/20 22:39 Lymphocytes % (Manual) 20.0 % (13.4-35.0) 05/06/20 22:39 Monocytes % (Manual) 10.0 % (0.0-7.3) H 05/06/20 22:39 Eosinophils % (Manual) 1.0 % (0.0-4.3) 05/06/20 22:39 Basophils % (Manual) 1.0 % (0.0-1.8) 05/06/20 22:39 Nucleated RBC % Not Reportable 05/06/20 22:39 Seg Neutrophils # Man 5.8 K/mm3 (1.8-7.7) 05/06/20 22:39 Band Neutrophils # 0.0 K/mm3 05/06/20 22:39 Lymphocytes # (Manual) 1.7 K/mm3 (1.2-5.4) 05/06/20 22:39 Abs React Lymphs (Man) 0.0 K/mm3 05/06/20 22:39 Monocytes # (Manual) 0.9 K/mm3 (0.0-0.8) H 05/06/20 22:39 Eosinophils # (Manual) 0.1 K/mm3 (0.0-0.4) 05/06/20 22:39 Basophils # (Manual) 0.1 K/mm3 (0.0-0.1) 05/06/20 22:39 Metamyelocytes # 0.0 K/mm3 05/06/20 22:39 Myelocytes # 0.0 K/mm3 05/06/20 22:39 Promyelocytes # 0.0 K/mm3 05/06/20 22:39 Blast Cells # 0.0 K/mm3 05/06/20 22:39 WBC Morphology Not Reportable 05/06/20 22:39 Hypersegmented Neuts Not Reportable 05/06/20 22:39 Hyposegmented Neuts Not Reportable 05/06/20 22:39 Hypogranular Neuts Not Reportable 05/06/20 22:39 Smudge Cells Not Reportable 05/06/20 22:39 Toxic Granulation Not Reportable 05/06/20 22:39 Toxic Vacuolation Not Reportable 05/06/20 22:39 Dohle Bodies Not Reportable 05/06/20 22:39 Pelger-Huet Anomaly Not Reportable 05/06/20 22:39 Neo Rods Not Reportable 05/06/20 22:39 Platelet Estimate Not Reportable 05/06/20 22:39 Clumped Platelets Not Reportable 05/06/20 22:39 Plt Clumps, EDTA Not Reportable 05/06/20 22:39 Large Platelets Not Reportable 05/06/20 22:39 Giant Platelets Not Reportable 05/06/20 22:39 Platelet Satelliting Not Reportable 05/06/20 22:39 Plt Morphology Comment Not Reportable 05/06/20 22:39 RBC Morphology Normal 05/06/20 22:39 Dimorphic RBCs Not Reportable 05/06/20 22:39 Polychromasia Not Reportable 05/06/20 22:39 Hypochromasia Not Reportable 05/06/20 22:39 Poikilocytosis Not Reportable 05/06/20 22:39 Anisocytosis Not Reportable 05/06/20 22:39 Microcytosis Not Reportable 05/06/20 22:39 Macrocytosis Not Reportable 05/06/20 22:39 Spherocytes Not Reportable 05/06/20 22:39 Pappenheimer Bodies Not Reportable 05/06/20 22:39 Sickle Cells Not Reportable 05/06/20 22:39 Target Cells Not Reportable 05/06/20 22:39 Tear Drop Cells Not Reportable 05/06/20 22:39 Ovalocytes Not Reportable 05/06/20 22:39 Helmet Cells Not Reportable 05/06/20 22:39 [place] Bodies Not Reportable 05/06/20 22:39 [place] Rings Not Reportable 05/06/20 22:39 [place] Cells Not Reportable 05/06/20 22:39 Bite Cells Not Reportable 05/06/20 22:39 Crenated Cell Not Reportable 05/06/20 22:39 Elliptocytes Not Reportable 05/06/20 22:39 Acanthocytes (Spur) Not Reportable 05/06/20 22:39 Rouleaux Not Reportable 05/06/20 22:39 Hemoglobin C Crystals Not Reportable 05/06/20 22:39 Schistocytes Not Reportable 05/06/20 22:39 Malaria parasites Not Reportable 05/06/20 22:39 Edis Bodies Not Reportable 05/06/20 22:39 Hem Pathologist Commnt No 05/06/20 22:39 PT 13.0 Sec. (12.2-14.9) 05/06/20 22:39 INR 1.00 (0.87-1.13) 05/06/20 22:39 APTT 24.7 Sec. (24.2-36.6) 05/06/20 22:39 Thrombin Time 16.6 Sec. (15.1-19.6) 05/06/20 22:39 Sodium 136 mmol/L (137-145) L 05/06/20 22:39 Potassium 3.7 mmol/L (3.6-5.0) 05/06/20 22:39 Chloride 100.1 mmol/L (98-107) 05/06/20 22:39 Carbon Dioxide 28 mmol/L (22-30) 05/06/20 22:39 Anion Gap 12 mmol/L 05/06/20 22:39 BUN 21 mg/dL (9-20) H 05/06/20 22:39 Creatinine 0.9 mg/dL (0.8-1.3) 05/06/20 22:39 Estimated GFR > 60 ml/min 05/06/20 22:39 BUN/Creatinine Ratio 23 % 05/06/20 22:39 Glucose 108 mg/dL (75-100) H 05/06/20 22:39 POC Glucose 107 mg/dL (70-105) H 05/07/20 20:00 Calcium 9.3 mg/dL (8.4-10.2) 05/06/20 22:39 Magnesium 2.00 mg/dL (1.7-2.3) 05/06/20 22:39 Total Bilirubin 1.00 mg/dL (0.1-1.2) 05/06/20 22:39 AST 24 units/L (5-40) 05/06/20 22:39 ALT 14 units/L (7-56) 05/06/20 22:39 Alkaline Phosphatase 74 units/L (35-129) 05/06/20 22:39 Total Creatine Kinase 68 units/L (55-170) 05/06/20 22:39 CK-MB (CK-2) < 1.0 ng/mL (0.0-4.0) 05/06/20 22:39 CK-MB (CK-2) Rel Index 1.4 (0-4) 05/06/20 22:39 Troponin T < 0.010 ng/mL (0.00-0.029) 05/06/20 22:39 Total Protein 6.8 g/dL (6.3-8.2) 05/06/20 22:39 Albumin 4.5 g/dL (3.9-5) 05/06/20 22:39 Albumin/Globulin Ratio 2.0 % 05/06/20 22:39 Urine Color Yellow (Yellow) 05/06/20 Unknown Urine Turbidity Clear (Clear) 05/06/20 Unknown Urine pH 6.0 (5.0-7.0) 05/06/20 Unknown Ur Specific [place] > 1.059 (1.003-1.030) H 05/06/20 Unknown Urine Protein <15 mg/dl mg/dL (Negative) 05/06/20 Unknown Urine Glucose (UA) Neg mg/dL (Negative) 05/06/20 Unknown Urine Ketones Neg mg/dL (Negative) 05/06/20 Unknown Urine Blood Neg (Negative) 05/06/20 Unknown Urine Nitrite Neg (Negative) 05/06/20 Unknown Urine Bilirubin Neg (Negative) 05/06/20 Unknown Urine Urobilinogen < 2.0 mg/dL (<2.0) 05/06/20 Unknown Ur Leukocyte Esterase Neg (Negative) 05/06/20 Unknown Urine WBC (Auto) < 1.0 /HPF (0.0-6.0) 05/06/20 Unknown Urine RBC (Auto) 1.0 /HPF (0.0-6.0) 05/06/20 Unknown U Epithel Cells (Auto) 1.0 /HPF (0-13.0) 05/06/20 Unknown Urine Mucus Few /HPF 05/06/20 Unknown Urine Opiates Screen Presumptive negative 05/06/20 Unknown Urine Methadone Screen Presumptive negative 05/06/20 Unknown Ur Barbiturates Screen Presumptive negative 05/06/20 Unknown Ur Phencyclidine Scrn Presumptive negative 05/06/20 Unknown Ur Amphetamines Screen Presumptive negative 05/06/20 Unknown U Benzodiazepines Scrn Presumptive negative 05/06/20 Unknown Urine Cocaine Screen Presumptive negative 05/06/20 Unknown U Marijuana (THC) Screen Presumptive negative 05/06/20 Unknown Drugs of Abuse Note Disclamer 05/06/20 Unknown Plasma/Serum Alcohol < 0.01 % (0-0.07) 05/06/20 22:39 Tom/IV: Voiding Method Condom Catheter Active Medications - Current Medications Current Medications: Generic Name Dose Route Start Last Admin Trade Name Freq PRN Reason Stop Dose Admin Acetaminophen 650 mg 05/07/20 02:02 Acetaminophen 325 Mg Tab PO Q4H PRN Headache Aspirin 325 mg 05/07/20 10:00 05/07/20 09:18 Aspirin 325 Mg Tab PO Not Given QDAY JOSE Levetiracetam 750 mg/ Dextrose 107.5 mls @ 400 mls/hr 05/07/20 10:00 05/07/20 21:29 IV 400 mls/hr Q12HR JOSE Administration Lorazepam 1 mg 05/07/20 08:30 05/07/20 20:34 Lorazepam 2 Mg/Ml Vial IV 1 mg Q1H PRN Administration Seizures Ondansetron HCl 4 mg 05/07/20 02:03 Ondansetron 4 Mg/2 Ml Inj IV Q8H PRN Nausea And Vomiting
[2020-05-08] MEDS: levETIRAcetam 500 MG TAB PO SCH ×2 (09:16→21:28)
[2020-05-08] MEDS: ASPIRIN 325 MG TAB PO SCH (09:16)
--- NOTE | 2020-05-08 11:15 | Electrocardiograph Report ---
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
[2020-05-08] MEDS: LORazepam 2 MG/ML VIAL IV PRN (16:29)
[2020-05-08 19:43] LABS: Chol/HDL Ratio 2.72 %
--- NOTE | 2020-05-09 09:00 | Progress Note ---
Assessment and Plan Assessment and plan: (1) Altered mental status Current Visit: Yes Status: Acute Plan to address problem: 1. NEUROLOGY CONSULT (2) History of seizure Current Visit: Yes Status: Acute Plan to address problem: 1. NEUROLOGY CONSULT 2. SEIZURE PRECAUTIONS 3. I.V ATIVAN PRN SEIZURE 4. SEIZURE MEDICATION TO BE CONTINUED (3) Right sided weakness Current Visit: Yes Status: Acute Plan to address problem: 1. NEUROLOGY CONSULT 2. PHYSICAL THERAPY (4) Speech disturbance Current Visit: Yes Status: Acute Plan to address problem: 1. NPO UNTIL SWALLOW TEST PASSED 2. NEUROLOGY CONSULT 3. SPEECH THERAPY CONSULT 05/08/2020 -I have seen and evaluated the patient, patient said he is feeling okay. Patient was alert and communicative but slow to respond, that is his baseline based on his . No seizure after admission. Patient was evaluated by his therapy. Neurology consulted and recommend MRI with and without contrast, increase Keppra to 1000mg BID but was not ordered. EEG ordered Increase the Keppra, waiting neurology if he still needs MRI. Patient was evaluated by physical therapy and recommend acute rehab. 05/09/2020 -Was seen by neurology and recommend MRI, suspected stroke -I put the patient on Keppra 1000 mg twice daily, atorvastatin and statin -Patient was evaluated by physical therapy and recommend acute rehab, case manag eminder is aware and working on it. -His speech is currently at baseline. -Patient trying to get out of the bed and patient is on restraints History Interval history: Patient was seen and evaluated this morning Patient did have seizure after admission Patient was communicative but slow to speak, which is his baseline according to his The nurse said he was trying to get out of the bed, [facility] was called Hospitalist Physical - Physical exam Narrative exam: Not in cardiopulmonary distress. The patient appeared well nourished and normally developed. Vital signs as documented. Head exam is unremarkable. No scleral icterus . Neck is without jugular venous distension, thyromegaly, or carotid bruits. Lungs are clear to auscultation. Cardiac exam reveals regular rate and Rhythm. Abdominal exam reveals normal bowel sounds, nontender, no organomegaly. Extremities are nonedematous and both femoral and pedal pulses are normal. 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 Right-sided hemiparesis. Slow to respond thus his baseline - Constitutional Vitals: Temp Pulse Resp BP Pulse Ox 98.2 F 83 16 146/92 98 05/09/20 03:25 05/09/20 05:00 05/09/20 03:25 05/09/20 03:25 05/09/20 03:25 General appearance: Present: no acute distress HEART Score - HEART Score Risk factors: 1-2 risk factors Troponin: Troponin T < 0.010 ng/mL (0.00-0.029) 05/06/20 22:39 Troponin: < normal limit - Critical Actions Critical Actions: 0-3 pts:0.9-1.7%risk of adverse cardiac event.Candidate for discharge Results - Labs CBC & Chem 7: 05/06/20 22:39 05/06/20 22:39 Labs: Laboratory Last Values WBC 8.5 K/mm3 (4.5-11.0) 05/06/20 22:39 RBC 4.11 M/mm3 (3.65-5.03) 05/06/20 22:39 Hgb 13.8 gm/dl (11.8-15.2) 05/06/20 22:39 Hct 40.1 % (35.5-45.6) 05/06/20 22:39 MCV 98 fl (84-94) H 05/06/20 22:39 MCH 34 pg (28-32) H 05/06/20 22:39 MCHC 34 % (32-34) 05/06/20 22:39 RDW 13.0 % (13.2-15.2) L 05/06/20 22:39 Plt Count 131 K/mm3 (140-440) L 05/06/20 22:39 Baso % (Auto) [place] 05/06/20 22:39 Add Manual Diff Complete 05/06/20 22:39 Total Counted 100 05/06/20 22:39 Seg Neuts % (Manual) 68.0 % (40.0-70.0) 05/06/20 22:39 Lymphocytes % (Manual) 20.0 % (13.4-35.0) 05/06/20 22:39 Monocytes % (Manual) 10.0 % (0.0-7.3) H 05/06/20 22:39 Eosinophils % (Manual) 1.0 % (0.0-4.3) 05/06/20 22:39 Basophils % (Manual) 1.0 % (0.0-1.8) 05/06/20 22:39 Nucleated RBC % Not Reportable 05/06/20 22:39 Seg Neutrophils # Man 5.8 K/mm3 (1.8-7.7) 05/06/20 22:39 Band Neutrophils # 0.0 K/mm3 05/06/20 22:39 Lymphocytes # (Manual) 1.7 K/mm3 (1.2-5.4) 05/06/20 22:39 Abs React Lymphs (Man) 0.0 K/mm3 05/06/20 22:39 Monocytes # (Manual) 0.9 K/mm3 (0.0-0.8) H 05/06/20 22:39 Eosinophils # (Manual) 0.1 K/mm3 (0.0-0.4) 05/06/20 22:39 Basophils # (Manual) 0.1 K/mm3 (0.0-0.1) 05/06/20 22:39 Metamyelocytes # 0.0 K/mm3 05/06/20 22:39 Myelocytes # 0.0 K/mm3 05/06/20 22:39 Promyelocytes # 0.0 K/mm3 05/06/20 22:39 Blast Cells # 0.0 K/mm3 05/06/20 22:39 WBC Morphology Not Reportable 05/06/20 22:39 Hypersegmented Neuts Not Reportable 05/06/20 22:39 Hyposegmented Neuts Not Reportable 05/06/20 22:39 Hypogranular Neuts Not Reportable 05/06/20 22:39 Smudge Cells Not Reportable 05/06/20 22:39 Toxic Granulation Not Reportable 05/06/20 22:39 Toxic Vacuolation Not Reportable 05/06/20 22:39 Dohle Bodies Not Reportable 05/06/20 22:39 Pelger-Huet Anomaly Not Reportable 05/06/20 22:39 Neo Rods Not Reportable 05/06/20 22:39 Platelet Estimate Not Reportable 05/06/20 22:39 Clumped Platelets Not Reportable 05/06/20 22:39 Plt Clumps, EDTA Not Reportable 05/06/20 22:39 Large Platelets Not Reportable 05/06/20 22:39 Giant Platelets Not Reportable 05/06/20 22:39 Platelet Satelliting Not Reportable 05/06/20 22:39 Plt Morphology Comment Not Reportable 05/06/20 22:39 RBC Morphology Normal 05/06/20 22:39 Dimorphic RBCs Not Reportable 05/06/20 22:39 Polychromasia Not Reportable 05/06/20 22:39 Hypochromasia Not Reportable 05/06/20 22:39 Poikilocytosis Not Reportable 05/06/20 22:39 Anisocytosis Not Reportable 05/06/20 22:39 Microcytosis Not Reportable 05/06/20 22:39 Macrocytosis Not Reportable 05/06/20 22:39 Spherocytes Not Reportable 05/06/20 22:39 Pappenheimer Bodies Not Reportable 05/06/20 22:39 Sickle Cells Not Reportable 05/06/20 22:39 Target Cells Not Reportable 05/06/20 22:39 Tear Drop Cells Not Reportable 05/06/20 22:39 Ovalocytes Not Reportable 05/06/20 22:39 Helmet Cells Not Reportable 05/06/20 22:39 [place] Bodies Not Reportable 05/06/20 22:39 [place] Rings Not Reportable 05/06/20 22:39 [place] Cells Not Reportable 05/06/20 22:39 Bite Cells Not Reportable 05/06/20 22:39 Crenated Cell Not Reportable 05/06/20 22:39 Elliptocytes Not Reportable 05/06/20 22:39 Acanthocytes (Spur) Not Reportable 05/06/20 22:39 Rouleaux Not Reportable 05/06/20 22:39 Hemoglobin C Crystals Not Reportable 05/06/20 22:39 Schistocytes Not Reportable 05/06/20 22:39 Malaria parasites Not Reportable 05/06/20 22:39 Edis Bodies Not Reportable 05/06/20 22:39 Hem Pathologist Commnt No 05/06/20 22:39 PT 13.0 Sec. (12.2-14.9) 05/06/20 22:39 INR 1.00 (0.87-1.13) 05/06/20 22:39 APTT 24.7 Sec. (24.2-36.6) 05/06/20 22:39 Thrombin Time 16.6 Sec. (15.1-19.6) 05/06/20 22:39 Sodium 136 mmol/L (137-145) L 05/06/20 22:39 Potassium 3.7 mmol/L (3.6-5.0) 05/06/20 22:39 Chloride 100.1 mmol/L (98-107) 05/06/20 22:39 Carbon Dioxide 28 mmol/L (22-30) 05/06/20 22:39 Anion Gap 12 mmol/L 05/06/20 22:39 BUN 21 mg/dL (9-20) H 05/06/20 22:39 Creatinine 0.9 mg/dL (0.8-1.3) 05/06/20 22:39 Estimated GFR > 60 ml/min 05/06/20 22:39 BUN/Creatinine Ratio 23 % 05/06/20 22:39 Glucose 108 mg/dL (75-100) H 05/06/20 22:39 POC Glucose 107 mg/dL (70-105) H 05/07/20 20:00 Calcium 9.3 mg/dL (8.4-10.2) 05/06/20 22:39 Magnesium 2.00 mg/dL (1.7-2.3) 05/06/20 22:39 Total Bilirubin 1.00 mg/dL (0.1-1.2) 05/06/20 22:39 AST 24 units/L (5-40) 05/06/20 22:39 ALT 14 units/L (7-56) 05/06/20 22:39 Alkaline Phosphatase 74 units/L (35-129) 05/06/20 22:39 Total Creatine Kinase 68 units/L (55-170) 05/06/20 22:39 CK-MB (CK-2) < 1.0 ng/mL (0.0-4.0) 05/06/20 22:39 CK-MB (CK-2) Rel Index 1.4 (0-4) 05/06/20 22:39 Troponin T < 0.010 ng/mL (0.00-0.029) 05/06/20 22:39 Total Protein 6.8 g/dL (6.3-8.2) 05/06/20 22:39 Albumin 4.5 g/dL (3.9-5) 05/06/20 22:39 Albumin/Globulin Ratio 2.0 % 05/06/20 22:39 Triglycerides 67 mg/dL (2-149) 05/08/20 18:53 Cholesterol 131 mg/dL (50-199) 05/08/20 18:53 LDL Cholesterol Direct 81 mg/dL (50-130) 05/08/20 18:53 HDL Cholesterol 48 mg/dL (40-59) 05/08/20 18:53 Cholesterol/HDL Ratio 2.72 % 05/08/20 18:53 Urine Color Yellow (Yellow) 05/06/20 Unknown Urine Turbidity Clear (Clear) 05/06/20 Unknown Urine pH 6.0 (5.0-7.0) 05/06/20 Unknown Ur Specific [place] > 1.059 (1.003-1.030) H 05/06/20 Unknown Urine Protein <15 mg/dl mg/dL (Negative) 05/06/20 Unknown Urine Glucose (UA) Neg mg/dL (Negative) 05/06/20 Unknown Urine Ketones Neg mg/dL (Negative) 05/06/20 Unknown Urine Blood Neg (Negative) 05/06/20 Unknown Urine Nitrite Neg (Negative) 05/06/20 Unknown Urine Bilirubin Neg (Negative) 05/06/20 Unknown Urine Urobilinogen < 2.0 mg/dL (<2.0) 05/06/20 Unknown Ur Leukocyte Esterase Neg (Negative) 05/06/20 Unknown Urine WBC (Auto) < 1.0 /HPF (0.0-6.0) 05/06/20 Unknown Urine RBC (Auto) 1.0 /HPF (0.0-6.0) 05/06/20 Unknown U Epithel Cells (Auto) 1.0 /HPF (0-13.0) 05/06/20 Unknown Urine Mucus Few /HPF 05/06/20 Unknown Urine Opiates Screen Presumptive negative 05/06/20 Unknown Urine Methadone Screen Presumptive negative 05/06/20 Unknown Ur Barbiturates Screen Presumptive negative 05/06/20 Unknown Ur Phencyclidine Scrn Presumptive negative 05/06/20 Unknown Ur Amphetamines Screen Presumptive negative 05/06/20 Unknown U Benzodiazepines Scrn Presumptive negative 05/06/20 Unknown Urine Cocaine Screen Presumptive negative 05/06/20 Unknown U Marijuana (THC) Screen Presumptive negative 05/06/20 Unknown Drugs of Abuse Note Disclamer 05/06/20 Unknown Plasma/Serum Alcohol < 0.01 % (0-0.07) 05/06/20 22:39 Tom/IV: Voiding Method Condom Catheter Active Medications - Current Medications Current Medications: Generic Name Dose Route Start Last Admin Trade Name Freq PRN Reason Stop Dose Admin Acetaminophen 650 mg 05/07/20 02:02 Acetaminophen 325 Mg Tab PO Q4H PRN Headache Aspirin 325 mg 05/07/20 10:00 05/08/20 09:16 Aspirin 325 Mg Tab PO 325 mg QDAY JOSE Administration Atorvastatin Calcium 40 mg 05/08/20 22:00 05/08/20 21:28 Atorvastatin 40 Mg Tab PO 40 mg QHS JOSE Administration Levetiracetam 1,000 mg 05/08/20 10:00 05/08/20 21:28 Levetiracetam 500 Mg Tab PO 1,000 mg BID JOSE Administration Lorazepam 1 mg 05/07/20 08:30 05/07/20 20:34 Lorazepam 2 Mg/Ml Vial IV 1 mg Q1H PRN Administration Seizures Ondansetron HCl 4 mg 05/07/20 02:03 Ondansetron 4 Mg/2 Ml Inj IV Q8H PRN Nausea And Vomiting
[2020-05-09] MEDS: levETIRAcetam 500 MG TAB PO SCH ×2 (09:12→22:06)
[2020-05-09] MEDS: ASPIRIN 325 MG TAB PO SCH (09:12)
[2020-05-09] MEDS ORDERED: LORazepam 2 MG/ML VIAL IV ONE (11:26)
[2020-05-09] MEDS: LORazepam 2 MG/ML VIAL IV PRN (11:51)
--- NOTE | 2020-05-09 14:32 | Magnetic Resonance Report ---
MR brain wo/w con INDICATION / CLINICAL INFORMATION: 50 years Male; MAIN. TECHNIQUE: Multiplanar, multisequence MR images of the brain were obtained. COMPARISON: None available. FINDINGS: BRAIN / INTRACRANIAL CONTENTS: No acute hemorrhage, mass effect, midline shift, hydrocephalus, or acu te, large territorial infarct. No chronic infarct or atrophy. Minimal, nonspecific white matter disea se identified. I see no signs of abnormal enhancement following contrast administration. CRANIOCERVICAL JUNCTION: No significant abnormality. VASCULAR FLOW-VOIDS: No significant abnormality. ORBITS: No significant abnormality of visualized orbits. SINUSES / MASTOIDS: Minimal mucosal thickening in the ethmoids. Small mucous retention cyst/polyp see n along the roof of the left maxillary antrum. ADDITIONAL FINDINGS: None. IMPRESSION: 1. No focal mass, hemorrhage, hydrocephalus, or acute ischemia. Signer Name: John Piedra MD, III Signed: 05/09/2020 2:27 PM Workstation Name: [id number]
[2020-05-10 06:29] LABS: BUN/Creatinine Ratio 25; Blood Urea Nitrogen 20 mg/dL (9-20); Calcium 9.1 mg/dL (8.4-10.2); Hemolysis Index 18
--- NOTE | 2020-05-10 09:12 | Progress Note ---
Assessment and Plan Assessment and plan: (1) Altered mental status Current Visit: Yes Status: Acute Plan to address problem: 1. NEUROLOGY CONSULT (2) History of seizure Current Visit: Yes Status: Acute Plan to address problem: 1. NEUROLOGY CONSULT 2. SEIZURE PRECAUTIONS 3. I.V ATIVAN PRN SEIZURE 4. SEIZURE MEDICATION TO BE CONTINUED (3) Right sided weakness Current Visit: Yes Status: Acute Plan to address problem: 1. NEUROLOGY CONSULT 2. PHYSICAL THERAPY (4) Speech disturbance Current Visit: Yes Status: Acute Plan to address problem: 1. NPO UNTIL SWALLOW TEST PASSED 2. NEUROLOGY CONSULT 3. SPEECH THERAPY CONSULT 05/08/2020 -I have seen and evaluated the patient, patient said he is feeling okay. Patient was alert and communicative but slow to respond, that is his baseline based on his . No seizure after admission. Patient was evaluated by his therapy. Neurology consulted and recommend MRI with and without contrast, increase Keppra to 1000mg BID but was not ordered. EEG ordered Increase the Keppra, waiting neurology if he still needs MRI. Patient was evaluated by physical therapy and recommend acute rehab. 05/09/2020 -Was seen by neurology and recommend MRI, suspected stroke -I put the patient on Keppra 1000 mg twice daily, atorvastatin and statin -Patient was evaluated by physical therapy and recommend acute rehab, case manag eminder is aware and working on it. -His speech is currently at baseline. -Patient trying to get out of the bed and patient is on restraints 05/10/2020 -MRI of head was done and negative for acute normalities. Echo, CTA head, neck were unremarkable. No seizure after admission. -Patient was evaluated by PT OT and recommend subacute rehab. Discussed with patient's about the management plan in detail. And was in agreement with subacute rehab. Discussed with case management. History Interval history: Patient was seen and evaluated this morning Patient did have seizure after admission Patient was communicative but slow to speak, which is his baseline according to his Patient was trying to get out of bed and have to be on restraints Hospitalist Physical - Physical exam Narrative exam: Not in cardiopulmonary distress. The patient appeared well nourished and normally developed. Vital signs as documented. Head exam is unremarkable. No scleral icterus . Neck is without jugular venous distension, thyromegaly, or carotid bruits. Lungs are clear to auscultation. Cardiac exam reveals regular rate and Rhythm. Abdominal exam reveals normal bowel sounds, nontender, no organomegaly. Extremities are nonedematous and both femoral and pedal pulses are normal. 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 Right-sided hemiparesis. Slow to respond thus his baseline - Constitutional Vitals: Temp Pulse Resp BP Pulse Ox 98.1 F 83 16 138/90 94 05/10/20 07:22 05/10/20 07:22 05/10/20 07:22 05/10/20 07:22 05/10/20 07:22 General appearance: Present: no acute distress HEART Score - HEART Score Risk factors: 1-2 risk factors Troponin: Troponin T < 0.010 ng/mL (0.00-0.029) 05/06/20 22:39 Troponin: < normal limit - Critical Actions Critical Actions: 0-3 pts:0.9-1.7%risk of adverse cardiac event.Candidate for discharge Results - Labs CBC & Chem 7: 05/06/20 22:39 05/10/20 04:46 Labs: Laboratory Last Values WBC 8.5 K/mm3 (4.5-11.0) 05/06/20 22:39 RBC 4.11 M/mm3 (3.65-5.03) 05/06/20 22:39 Hgb 13.8 gm/dl (11.8-15.2) 05/06/20 22:39 Hct 40.1 % (35.5-45.6) 05/06/20 22:39 MCV 98 fl (84-94) H 05/06/20 22:39 MCH 34 pg (28-32) H 05/06/20 22:39 MCHC 34 % (32-34) 05/06/20 22:39 RDW 13.0 % (13.2-15.2) L 05/06/20 22:39 Plt Count 131 K/mm3 (140-440) L 05/06/20 22:39 Baso % (Auto) [place] 05/06/20 22:39 Add Manual Diff Complete 05/06/20 22:39 Total Counted 100 05/06/20 22:39 Seg Neuts % (Manual) 68.0 % (40.0-70.0) 05/06/20 22:39 Lymphocytes % (Manual) 20.0 % (13.4-35.0) 05/06/20 22:39 Monocytes % (Manual) 10.0 % (0.0-7.3) H 05/06/20 22:39 Eosinophils % (Manual) 1.0 % (0.0-4.3) 05/06/20 22:39 Basophils % (Manual) 1.0 % (0.0-1.8) 05/06/20 22:39 Nucleated RBC % Not Reportable 05/06/20 22:39 Seg Neutrophils # Man 5.8 K/mm3 (1.8-7.7) 05/06/20 22:39 Band Neutrophils # 0.0 K/mm3 05/06/20 22:39 Lymphocytes # (Manual) 1.7 K/mm3 (1.2-5.4) 05/06/20 22:39 Abs React Lymphs (Man) 0.0 K/mm3 05/06/20 22:39 Monocytes # (Manual) 0.9 K/mm3 (0.0-0.8) H 05/06/20 22:39 Eosinophils # (Manual) 0.1 K/mm3 (0.0-0.4) 05/06/20 22:39 Basophils # (Manual) 0.1 K/mm3 (0.0-0.1) 05/06/20 22:39 Metamyelocytes # 0.0 K/mm3 05/06/20 22:39 Myelocytes # 0.0 K/mm3 05/06/20 22:39 Promyelocytes # 0.0 K/mm3 05/06/20 22:39 Blast Cells # 0.0 K/mm3 05/06/20 22:39 WBC Morphology Not Reportable 05/06/20 22:39 Hypersegmented Neuts Not Reportable 05/06/20 22:39 Hyposegmented Neuts Not Reportable 05/06/20 22:39 Hypogranular Neuts Not Reportable 05/06/20 22:39 Smudge Cells Not Reportable 05/06/20 22:39 Toxic Granulation Not Reportable 05/06/20 22:39 Toxic Vacuolation Not Reportable 05/06/20 22:39 Dohle Bodies Not Reportable 05/06/20 22:39 Pelger-Huet Anomaly Not Reportable 05/06/20 22:39 Neo Rods Not Reportable 05/06/20 22:39 Platelet Estimate Not Reportable 05/06/20 22:39 Clumped Platelets Not Reportable 05/06/20 22:39 Plt Clumps, EDTA Not Reportable 05/06/20 22:39 Large Platelets Not Reportable 05/06/20 22:39 Giant Platelets Not Reportable 05/06/20 22:39 Platelet Satelliting Not Reportable 05/06/20 22:39 Plt Morphology Comment Not Reportable 05/06/20 22:39 RBC Morphology Normal 05/06/20 22:39 Dimorphic RBCs Not Reportable 05/06/20 22:39 Polychromasia Not Reportable 05/06/20 22:39 Hypochromasia Not Reportable 05/06/20 22:39 Poikilocytosis Not Reportable 05/06/20 22:39 Anisocytosis Not Reportable 05/06/20 22:39 Microcytosis Not Reportable 05/06/20 22:39 Macrocytosis Not Reportable 05/06/20 22:39 Spherocytes Not Reportable 05/06/20 22:39 Pappenheimer Bodies Not Reportable 05/06/20 22:39 Sickle Cells Not Reportable 05/06/20 22:39 Target Cells Not Reportable 05/06/20 22:39 Tear Drop Cells Not Reportable 05/06/20 22:39 Ovalocytes Not Reportable 05/06/20 22:39 Helmet Cells Not Reportable 05/06/20 22:39 [place] Bodies Not Reportable 05/06/20 22:39 [place] Rings Not Reportable 05/06/20 22:39 [place] Cells Not Reportable 05/06/20 22:39 Bite Cells Not Reportable 05/06/20 22:39 Crenated Cell Not Reportable 05/06/20 22:39 Elliptocytes Not Reportable 05/06/20 22:39 Acanthocytes (Spur) Not Reportable 05/06/20 22:39 Rouleaux Not Reportable 05/06/20 22:39 Hemoglobin C Crystals Not Reportable 05/06/20 22:39 Schistocytes Not Reportable 05/06/20 22:39 Malaria parasites Not Reportable 05/06/20 22:39 Edis Bodies Not Reportable 05/06/20 22:39 Hem Pathologist Commnt No 05/06/20 22:39 PT 13.0 Sec. (12.2-14.9) 05/06/20 22:39 INR 1.00 (0.87-1.13) 05/06/20 22:39 APTT 24.7 Sec. (24.2-36.6) 05/06/20 22:39 Thrombin Time 16.6 Sec. (15.1-19.6) 05/06/20 22:39 Sodium 140 mmol/L (137-145) 05/10/20 04:46 Potassium 3.6 mmol/L (3.6-5.0) 05/10/20 04:46 Chloride 104.3 mmol/L (98-107) 05/10/20 04:46 Carbon Dioxide 25 mmol/L (22-30) 05/10/20 04:46 Anion Gap 14 mmol/L 05/10/20 04:46 BUN 20 mg/dL (9-20) 05/10/20 04:46 Creatinine 0.8 mg/dL (0.8-1.3) 05/10/20 04:46 Estimated GFR > 60 ml/min 05/10/20 04:46 BUN/Creatinine Ratio 25 % 05/10/20 04:46 Glucose 85 mg/dL (75-100) 05/10/20 04:46 POC Glucose 107 mg/dL (70-105) H 05/07/20 20:00 Calcium 9.1 mg/dL (8.4-10.2) 05/10/20 04:46 Magnesium 2.00 mg/dL (1.7-2.3) 05/06/20 22:39 Total Bilirubin 1.00 mg/dL (0.1-1.2) 05/06/20 22:39 AST 24 units/L (5-40) 05/06/20 22:39 ALT 14 units/L (7-56) 05/06/20 22:39 Alkaline Phosphatase 74 units/L (35-129) 05/06/20 22:39 Total Creatine Kinase 68 units/L (55-170) 05/06/20 22:39 CK-MB (CK-2) < 1.0 ng/mL (0.0-4.0) 05/06/20 22:39 CK-MB (CK-2) Rel Index 1.4 (0-4) 05/06/20 22:39 Troponin T < 0.010 ng/mL (0.00-0.029) 05/06/20 22:39 Total Protein 6.8 g/dL (6.3-8.2) 05/06/20 22:39 Albumin 4.5 g/dL (3.9-5) 05/06/20 22:39 Albumin/Globulin Ratio 2.0 % 05/06/20 22:39 Triglycerides 67 mg/dL (2-149) 05/08/20 18:53 Cholesterol 131 mg/dL (50-199) 05/08/20 18:53 LDL Cholesterol Direct 81 mg/dL (50-130) 05/08/20 18:53 HDL Cholesterol 48 mg/dL (40-59) 05/08/20 18:53 Cholesterol/HDL Ratio 2.72 % 05/08/20 18:53 Urine Color Yellow (Yellow) 05/06/20 Unknown Urine Turbidity Clear (Clear) 05/06/20 Unknown Urine pH 6.0 (5.0-7.0) 05/06/20 Unknown Ur Specific [place] > 1.059 (1.003-1.030) H 05/06/20 Unknown Urine Protein <15 mg/dl mg/dL (Negative) 05/06/20 Unknown Urine Glucose (UA) Neg mg/dL (Negative) 05/06/20 Unknown Urine Ketones Neg mg/dL (Negative) 05/06/20 Unknown Urine Blood Neg (Negative) 05/06/20 Unknown Urine Nitrite Neg (Negative) 05/06/20 Unknown Urine Bilirubin Neg (Negative) 05/06/20 Unknown Urine Urobilinogen < 2.0 mg/dL (<2.0) 05/06/20 Unknown Ur Leukocyte Esterase Neg (Negative) 05/06/20 Unknown Urine WBC (Auto) < 1.0 /HPF (0.0-6.0) 05/06/20 Unknown Urine RBC (Auto) 1.0 /HPF (0.0-6.0) 05/06/20 Unknown U Epithel Cells (Auto) 1.0 /HPF (0-13.0) 05/06/20 Unknown Urine Mucus Few /HPF 05/06/20 Unknown Urine Opiates Screen Presumptive negative 05/06/20 Unknown Urine Methadone Screen Presumptive negative 05/06/20 Unknown Ur Barbiturates Screen Presumptive negative 05/06/20 Unknown Ur Phencyclidine Scrn Presumptive negative 05/06/20 Unknown Ur Amphetamines Screen Presumptive negative 05/06/20 Unknown U Benzodiazepines Scrn Presumptive negative 05/06/20 Unknown Urine Cocaine Screen Presumptive negative 05/06/20 Unknown U Marijuana (THC) Screen Presumptive negative 05/06/20 Unknown Drugs of Abuse Note Disclamer 05/06/20 Unknown Plasma/Serum Alcohol < 0.01 % (0-0.07) 05/06/20 22:39 Coronavirus (PCR) Negative (Negative) 05/09/20 Unknown Tom/IV: Voiding Method Incontinent Active Medications - Current Medications Current Medications: Generic Name Dose Route Start Last Admin Trade Name Freq PRN Reason Stop Dose Admin Acetaminophen 650 mg 05/07/20 02:02 Acetaminophen 325 Mg Tab PO Q4H PRN Headache Aspirin 325 mg 05/07/20 10:00 05/09/20 09:12 Aspirin 325 Mg Tab PO 325 mg QDAY JOSE Administration Atorvastatin Calcium 40 mg 05/08/20 22:00 05/09/20 22:06 Atorvastatin 40 Mg Tab PO 40 mg QHS JOSE Administration Levetiracetam 1,000 mg 05/08/20 10:00 05/09/20 22:06 Levetiracetam 500 Mg Tab PO 1,000 mg BID JOSE Administration Lorazepam 1 mg 05/07/20 08:30 05/09/20 11:51 Lorazepam 2 Mg/Ml Vial IV 1 mg Q1H PRN Administration Seizures Ondansetron HCl 4 mg 05/07/20 02:03 Ondansetron 4 Mg/2 Ml Inj IV Q8H PRN Nausea And Vomiting
[2020-05-10] MEDS: levETIRAcetam 500 MG TAB PO SCH ×2 (09:19→21:32)
[2020-05-10] MEDS: ASPIRIN 325 MG TAB PO SCH (09:19)
--- NOTE | 2020-05-11 08:45 | Progress Note ---
Assessment and Plan Assessment and plan: (1) Altered mental status Current Visit: Yes Status: Acute Plan to address problem: 1. NEUROLOGY CONSULT Delirium -Supportive care (2) History of seizure Current Visit: Yes Status: Acute Plan to address problem: 1. NEUROLOGY CONSULT 2. SEIZURE PRECAUTIONS 3. I.V ATIVAN PRN SEIZURE 4. SEIZURE MEDICATION TO BE CONTINUED (3) Right sided weakness Current Visit: Yes Status: Acute Plan to address problem: 1. NEUROLOGY CONSULT 2. PHYSICAL THERAPY (4) Speech disturbance Current Visit: Yes Status: Acute Plan to address problem: 1. NPO UNTIL SWALLOW TEST PASSED 2. NEUROLOGY CONSULT 3. SPEECH THERAPY CONSULT 05/08/2020 -I have seen and evaluated the patient, patient said he is feeling okay. Patient was alert and communicative but slow to respond, that is his baseline based on his . No seizure after admission. Patient was evaluated by his therapy. Neurology consulted and recommend MRI with and without contrast, increase Keppra to 1000mg BID but was not ordered. EEG ordered Increase the Keppra, waiting neurology if he still needs MRI. Patient was evaluated by physical therapy and recommend acute rehab. 05/09/2020 -Was seen by neurology and recommend MRI, suspected stroke -I put the patient on Keppra 1000 mg twice daily, atorvastatin and statin -Patient was evaluated by physical therapy and recommend acute rehab, case management is aware and working on it. -His speech is currently at baseline. -Patient trying to get out of the bed and patient is on restraints 05/10/2020 -MRI of head was done and negative for acute normalities. Echo, CTA head, neck were unremarkable. No seizure after admission. -Patient was evaluated by PT OT and recommend subacute rehab. Discussed with patient's about the management plan in detail. And was in agreement with subacute rehab. Discussed with case management. 05/11/20; CVA ruled out. Patient has delirium; on supportive care. Patient is pending for rehab placement. History Interval history: Patient was seen and evaluated this morning Patient didn't have seizure after admission Patient was communicative but slow to speak, which is his baseline according to his Patient was trying to get out of bed and have to be on restraints Hospitalist Physical - Physical exam Narrative exam: Not in cardiopulmonary distress. The patient appeared well nourished and normally developed. Vital signs as documented. Head exam is unremarkable. No scleral icterus . Neck is without jugular venous distension, thyromegaly, or carotid bruits. Lungs are clear to auscultation. Cardiac exam reveals regular rate and Rhythm. Abdominal exam reveals normal bowel sounds, nontender, no organomegaly. Extremities are nonedematous and both femoral and pedal pulses are normal. PLANT DIRECTOR: Alert . Right-sided hemiparesis. Slow to respond thus his baseline - Constitutional Vitals: Temp Pulse Resp BP Pulse Ox 98.1 F 94 H 17 115/78 99 05/11/20 07:38 05/11/20 07:38 05/11/20 07:38 05/11/20 07:38 05/11/20 07:40 General appearance: Present: no acute distress HEART Score - HEART Score Risk factors: 1-2 risk factors Troponin: Troponin T < 0.010 ng/mL (0.00-0.029) 05/06/20 22:39 Troponin: < normal limit - Critical Actions Critical Actions: 0-3 pts:0.9-1.7%risk of adverse cardiac event.Candidate for discharge Results - Labs CBC & Chem 7: 05/06/20 22:39 05/10/20 04:46 Labs: Laboratory Last Values WBC 8.5 K/mm3 (4.5-11.0) 05/06/20 22:39 RBC 4.11 M/mm3 (3.65-5.03) 05/06/20 22:39 Hgb 13.8 gm/dl (11.8-15.2) 05/06/20 22:39 Hct 40.1 % (35.5-45.6) 05/06/20 22:39 MCV 98 fl (84-94) H 05/06/20 22:39 MCH 34 pg (28-32) H 05/06/20 22:39 MCHC 34 % (32-34) 05/06/20 22:39 RDW 13.0 % (13.2-15.2) L 05/06/20 22:39 Plt Count 131 K/mm3 (140-440) L 05/06/20 22:39 Baso % (Auto) [place] 05/06/20 22:39 Add Manual Diff Complete 05/06/20 22:39 Total Counted 100 05/06/20 22:39 Seg Neuts % (Manual) 68.0 % (40.0-70.0) 05/06/20 22:39 Lymphocytes % (Manual) 20.0 % (13.4-35.0) 05/06/20 22:39 Monocytes % (Manual) 10.0 % (0.0-7.3) H 05/06/20 22:39 Eosinophils % (Manual) 1.0 % (0.0-4.3) 05/06/20 22:39 Basophils % (Manual) 1.0 % (0.0-1.8) 05/06/20 22:39 Nucleated RBC % Not Reportable 05/06/20 22:39 Seg Neutrophils # Man 5.8 K/mm3 (1.8-7.7) 05/06/20 22:39 Band Neutrophils # 0.0 K/mm3 05/06/20 22:39 Lymphocytes # (Manual) 1.7 K/mm3 (1.2-5.4) 05/06/20 22:39 Abs React Lymphs (Man) 0.0 K/mm3 05/06/20 22:39 Monocytes # (Manual) 0.9 K/mm3 (0.0-0.8) H 05/06/20 22:39 Eosinophils # (Manual) 0.1 K/mm3 (0.0-0.4) 05/06/20 22:39 Basophils # (Manual) 0.1 K/mm3 (0.0-0.1) 05/06/20 22:39 Metamyelocytes # 0.0 K/mm3 05/06/20 22:39 Myelocytes # 0.0 K/mm3 05/06/20 22:39 Promyelocytes # 0.0 K/mm3 05/06/20 22:39 Blast Cells # 0.0 K/mm3 05/06/20 22:39 WBC Morphology Not Reportable 05/06/20 22:39 Hypersegmented Neuts Not Reportable 05/06/20 22:39 Hyposegmented Neuts Not Reportable 05/06/20 22:39 Hypogranular Neuts Not Reportable 05/06/20 22:39 Smudge Cells Not Reportable 05/06/20 22:39 Toxic Granulation Not Reportable 05/06/20 22:39 Toxic Vacuolation Not Reportable 05/06/20 22:39 Dohle Bodies Not Reportable 05/06/20 22:39 Pelger-Huet Anomaly Not Reportable 05/06/20 22:39 Neo Rods Not Reportable 05/06/20 22:39 Platelet Estimate Not Reportable 05/06/20 22:39 Clumped Platelets Not Reportable 05/06/20 22:39 Plt Clumps, EDTA Not Reportable 05/06/20 22:39 Large Platelets Not Reportable 05/06/20 22:39 Giant Platelets Not Reportable 05/06/20 22:39 Platelet Satelliting Not Reportable 05/06/20 22:39 Plt Morphology Comment Not Reportable 05/06/20 22:39 RBC Morphology Normal 05/06/20 22:39 Dimorphic RBCs Not Reportable 05/06/20 22:39 Polychromasia Not Reportable 05/06/20 22:39 Hypochromasia Not Reportable 05/06/20 22:39 Poikilocytosis Not Reportable 05/06/20 22:39 Anisocytosis Not Reportable 05/06/20 22:39 Microcytosis Not Reportable 05/06/20 22:39 Macrocytosis Not Reportable 05/06/20 22:39 Spherocytes Not Reportable 05/06/20 22:39 Pappenheimer Bodies Not Reportable 05/06/20 22:39 Sickle Cells Not Reportable 05/06/20 22:39 Target Cells Not Reportable 05/06/20 22:39 Tear Drop Cells Not Reportable 05/06/20 22:39 Ovalocytes Not Reportable 05/06/20 22:39 Helmet Cells Not Reportable 05/06/20 22:39 [place] Bodies Not Reportable 05/06/20 22:39 [place] Rings Not Reportable 05/06/20 22:39 Peng Cells Not Reportable 05/06/20 22:39 Bite Cells Not Reportable 05/06/20 22:39 Crenated Cell Not Reportable 05/06/20 22:39 Elliptocytes Not Reportable 05/06/20 22:39 Acanthocytes (Spur) Not Reportable 05/06/20 22:39 Rouleaux Not Reportable 05/06/20 22:39 Hemoglobin C Crystals Not Reportable 05/06/20 22:39 Schistocytes Not Reportable 05/06/20 22:39 Malaria parasites Not Reportable 05/06/20 22:39 Edis Bodies Not Reportable 05/06/20 22:39 Hem Pathologist Commnt No 05/06/20 22:39 PT 13.0 Sec. (12.2-14.9) 05/06/20 22:39 INR 1.00 (0.87-1.13) 05/06/20 22:39 APTT 24.7 Sec. (24.2-36.6) 05/06/20 22:39 Thrombin Time 16.6 Sec. (15.1-19.6) 05/06/20 22:39 Sodium 140 mmol/L (137-145) 05/10/20 04:46 Potassium 3.6 mmol/L (3.6-5.0) 05/10/20 04:46 Chloride 104.3 mmol/L (98-107) 05/10/20 04:46 Carbon Dioxide 25 mmol/L (22-30) 05/10/20 04:46 Anion Gap 14 mmol/L 05/10/20 04:46 BUN 20 mg/dL (9-20) 05/10/20 04:46 Creatinine 0.8 mg/dL (0.8-1.3) 05/10/20 04:46 Estimated GFR > 60 ml/min 05/10/20 04:46 BUN/Creatinine Ratio 25 % 05/10/20 04:46 Glucose 85 mg/dL (75-100) 05/10/20 04:46 POC Glucose 107 mg/dL (70-105) H 05/07/20 20:00 Calcium 9.1 mg/dL (8.4-10.2) 05/10/20 04:46 Magnesium 2.00 mg/dL (1.7-2.3) 05/06/20 22:39 Total Bilirubin 1.00 mg/dL (0.1-1.2) 05/06/20 22:39 AST 24 units/L (5-40) 05/06/20 22:39 ALT 14 units/L (7-56) 05/06/20 22:39 Alkaline Phosphatase 74 units/L (35-129) 05/06/20 22:39 Total Creatine Kinase 68 units/L (55-170) 05/06/20 22:39 CK-MB (CK-2) < 1.0 ng/mL (0.0-4.0) 05/06/20 22:39 CK-MB (CK-2) Rel Index 1.4 (0-4) 05/06/20 22:39 Troponin T < 0.010 ng/mL (0.00-0.029) 05/06/20 22:39 Total Protein 6.8 g/dL (6.3-8.2) 05/06/20 22:39 Albumin 4.5 g/dL (3.9-5) 05/06/20 22:39 Albumin/Globulin Ratio 2.0 % 05/06/20 22:39 Triglycerides 67 mg/dL (2-149) 05/08/20 18:53 Cholesterol 131 mg/dL (50-199) 05/08/20 18:53 LDL Cholesterol Direct 81 mg/dL (50-130) 05/08/20 18:53 HDL Cholesterol 48 mg/dL (40-59) 05/08/20 18:53 Cholesterol/HDL Ratio 2.72 % 05/08/20 18:53 Urine Color Yellow (Yellow) 05/06/20 Unknown Urine Turbidity Clear (Clear) 05/06/20 Unknown Urine pH 6.0 (5.0-7.0) 05/06/20 Unknown Ur Specific [place] > 1.059 (1.003-1.030) H 05/06/20 Unknown Urine Protein <15 mg/dl mg/dL (Negative) 05/06/20 Unknown Urine Glucose (UA) Neg mg/dL (Negative) 05/06/20 Unknown Urine Ketones Neg mg/dL (Negative) 05/06/20 Unknown Urine Blood Neg (Negative) 05/06/20 Unknown Urine Nitrite Neg (Negative) 05/06/20 Unknown Urine Bilirubin Neg (Negative) 05/06/20 Unknown Urine Urobilinogen < 2.0 mg/dL (<2.0) 05/06/20 Unknown Ur Leukocyte Esterase Neg (Negative) 05/06/20 Unknown Urine WBC (Auto) < 1.0 /HPF (0.0-6.0) 05/06/20 Unknown Urine RBC (Auto) 1.0 /HPF (0.0-6.0) 05/06/20 Unknown U Epithel Cells (Auto) 1.0 /HPF (0-13.0) 05/06/20 Unknown Urine Mucus Few /HPF 05/06/20 Unknown Urine Opiates Screen Presumptive negative 05/06/20 Unknown Urine Methadone Screen Presumptive negative 05/06/20 Unknown Ur Barbiturates Screen Presumptive negative 05/06/20 Unknown Ur Phencyclidine Scrn Presumptive negative 05/06/20 Unknown Ur Amphetamines Screen Presumptive negative 05/06/20 Unknown U Benzodiazepines Scrn Presumptive negative 05/06/20 Unknown Urine Cocaine Screen Presumptive negative 05/06/20 Unknown U Marijuana (THC) Screen Presumptive negative 05/06/20 Unknown Drugs of Abuse Note Disclamer 05/06/20 Unknown Plasma/Serum Alcohol < 0.01 % (0-0.07) 05/06/20 22:39 Coronavirus (PCR) Negative (Negative) 05/09/20 Unknown Tom/IV: Voiding Method Urinal Active Medications - Current Medications Current Medications: Generic Name Dose Route Start Last Admin Trade Name Freq PRN Reason Stop Dose Admin Acetaminophen 650 mg 05/07/20 02:02 05/10/20 16:07 Acetaminophen 325 Mg Tab PO 650 mg Q4H PRN Administration Headache Aspirin 325 mg 05/07/20 10:00 05/10/20 09:19 Aspirin 325 Mg Tab PO 325 mg QDAY JOSE Administration Atorvastatin Calcium 40 mg 05/08/20 22:00 05/10/20 21:32 Atorvastatin 40 Mg Tab PO 40 mg QHS JOSE Administration Levetiracetam 1,000 mg 05/08/20 10:00 05/10/20 21:32 Levetiracetam 500 Mg Tab PO 1,000 mg BID JOSE Administration Lorazepam 1 mg 05/07/20 08:30 05/09/20 11:51 Lorazepam 2 Mg/Ml Vial IV 1 mg Q1H PRN Administration Seizures Ondansetron HCl 4 mg 05/07/20 02:03 Ondansetron 4 Mg/2 Ml Inj IV Q8H PRN Nausea And Vomiting
[2020-05-11] MEDS: levETIRAcetam 500 MG TAB PO SCH ×2 (09:26→21:21)
[2020-05-11] MEDS: ASPIRIN 325 MG TAB PO SCH (09:26)
[2020-05-12] MEDS: levETIRAcetam 500 MG TAB PO SCH ×2 (09:08→22:42)
[2020-05-12] MEDS: ASPIRIN 325 MG TAB PO SCH (09:08)
--- NOTE | 2020-05-12 09:14 | Progress Note ---
Assessment and Plan Assessment and plan: Patient is a 50-year-old male with past medical history of seizure disorder, cerebrovascular accident with right-sided weakness and speech impairment presenting with altered mental status. Patient is noncommunicative and was alone during evaluation with no body history gave account of what happened. Hi story is based on information from the emergency room and patient's medical record. There is worsening speech impairment , generalized weakness, and shaking sensation of the body at home prior to presentation. 05/12 Patient seen and examined, complains to say Yes to every questions, states that this happens at home, with the blank stare and says Yes to every questions. Per the spouse all this started following Apr 08, TIA and seizure, following that May 06 on presenting here, concerning for seizure. No known family hx of seizure per his spouse. 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 Since then he has not been the same. April Drags right leg Acute On Chronic Metabolic Encephalopathy CVA ruled OUT Possible Seizure Disorder- POA (1) Altered mental status Current Visit: Yes Status: Acute Plan to address problem: 1. NEUROLOGY CONSULT Delirium -Supportive care (2) History of seizure Current Visit: Yes Status: Acute Plan to address problem: 1. NEUROLOGY CONSULT 2. SEIZURE PRECAUTIONS 3. I.V ATIVAN PRN SEIZURE 4. SEIZURE MEDICATION TO BE CONTINUED (3) Right sided weakness Current Visit: Yes Status: Acute Plan to address problem: 1. NEUROLOGY CONSULT 2. PHYSICAL THERAPY (4) Speech disturbance Current Visit: Yes Status: Acute Plan to address problem: 1. NPO UNTIL SWALLOW TEST PASSED 2. NEUROLOGY CONSULT 3. SPEECH THERAPY CONSULT 05/08/2020 -I have seen and evaluated the patient, patient said he is feeling okay. Patient was alert and communicative but slow to respond, that is his baseline based on his . No seizure after admission. Patient was evaluated by his therapy. Neurology consulted and recommend MRI with and without contrast, increase Keppra to 1000mg BID but was not ordered. EEG ordered Increase the Keppra, waiting neurology if he still needs MRI. Patient was evaluated by physical therapy and recommend acute rehab. 05/09/2020 -Was seen by neurology and recommend MRI, suspected stroke -I put the patient on Keppra 1000 mg twice daily, atorvastatin and statin -Patient was evaluated by physical therapy and recommend acute rehab, case management is aware and working on it. -His speech is currently at baseline. -Patient trying to get out of the bed and patient is on restraints 05/10/2020 -MRI of head was done and negative for acute normalities. Echo, CTA head, neck were unremarkable. No seizure after admission. -Patient was evaluated by PT OT and recommend subacute rehab. Discussed with patient's about the management plan in detail. And was in agreement with subacute rehab. Discussed with case management. 05/11/20; CVA ruled out. Patient has delirium; on supportive care. Patient is pending for rehab placement. History Interval history: Patient seen and examined, no new complaints. Hospitalist Physical - Physical exam Narrative exam: Not in cardiopulmonary distress. The patient appeared well nourished and normally developed. Vital signs as documented. Head exam is unremarkable. No scleral icterus . Neck is without jugular venous distension, thyromegaly, or carotid bruits. Lungs are clear to auscultation. Cardiac exam reveals regular rate and Rhythm. Abdominal exam reveals normal bowel sounds, nontender, no organomegaly. Extremities are nonedematous and both femoral and pedal pulses are normal. OSHA INSPECTOR: Alert . Right-sided hemiparesis. Slow to respond thus his baseline - Constitutional Vitals: Temp Pulse Resp BP Pulse Ox 98.5 F 88 18 133/88 98 05/12/20 08:31 05/12/20 08:31 05/12/20 08:31 05/12/20 08:31 05/12/20 08:31 General appearance: Present: no acute distress HEART Score - HEART Score Risk factors: 1-2 risk factors Troponin: Troponin T < 0.010 ng/mL (0.00-0.029) 05/06/20 22:39 Troponin: < normal limit - Critical Actions Critical Actions: 0-3 pts:0.9-1.7%risk of adverse cardiac event.Candidate for discharge Results - Labs CBC & Chem 7: 05/06/20 22:39 05/10/20 04:46 Labs: Laboratory Last Values WBC 8.5 K/mm3 (4.5-11.0) 05/06/20 22:39 RBC 4.11 M/mm3 (3.65-5.03) 05/06/20 22:39 Hgb 13.8 gm/dl (11.8-15.2) 05/06/20 22:39 Hct 40.1 % (35.5-45.6) 05/06/20 22:39 MCV 98 fl (84-94) H 05/06/20 22:39 MCH 34 pg (28-32) H 05/06/20 22:39 MCHC 34 % (32-34) 05/06/20 22:39 RDW 13.0 % (13.2-15.2) L 05/06/20 22:39 Plt Count 131 K/mm3 (140-440) L 05/06/20 22:39 Baso % (Auto) [place] 05/06/20 22:39 Add Manual Diff Complete 05/06/20 22:39 Total Counted 100 05/06/20 22:39 Seg Neuts % (Manual) 68.0 % (40.0-70.0) 05/06/20 22:39 Lymphocytes % (Manual) 20.0 % (13.4-35.0) 05/06/20 22:39 Monocytes % (Manual) 10.0 % (0.0-7.3) H 05/06/20 22:39 Eosinophils % (Manual) 1.0 % (0.0-4.3) 05/06/20 22:39 Basophils % (Manual) 1.0 % (0.0-1.8) 05/06/20 22:39 Nucleated RBC % Not Reportable 05/06/20 22:39 Seg Neutrophils # Man 5.8 K/mm3 (1.8-7.7) 05/06/20 22:39 Band Neutrophils # 0.0 K/mm3 05/06/20 22:39 Lymphocytes # (Manual) 1.7 K/mm3 (1.2-5.4) 05/06/20 22:39 Abs React Lymphs (Man) 0.0 K/mm3 05/06/20 22:39 Monocytes # (Manual) 0.9 K/mm3 (0.0-0.8) H 05/06/20 22:39 Eosinophils # (Manual) 0.1 K/mm3 (0.0-0.4) 05/06/20 22:39 Basophils # (Manual) 0.1 K/mm3 (0.0-0.1) 05/06/20 22:39 Metamyelocytes # 0.0 K/mm3 05/06/20 22:39 Myelocytes # 0.0 K/mm3 05/06/20 22:39 Promyelocytes # 0.0 K/mm3 05/06/20 22:39 Blast Cells # 0.0 K/mm3 05/06/20 22:39 WBC Morphology Not Reportable 05/06/20 22:39 Hypersegmented Neuts Not Reportable 05/06/20 22:39 Hyposegmented Neuts Not Reportable 05/06/20 22:39 Hypogranular Neuts Not Reportable 05/06/20 22:39 Smudge Cells Not Reportable 05/06/20 22:39 Toxic Granulation Not Reportable 05/06/20 22:39 Toxic Vacuolation Not Reportable 05/06/20 22:39 Dohle Bodies Not Reportable 05/06/20 22:39 Pelger-[place]uet Anomaly Not Reportable 05/06/20 22:39 Neo Rods Not Reportable 05/06/20 22:39 Platelet Estimate Not Reportable 05/06/20 22:39 Clumped Platelets Not Reportable 05/06/20 22:39 Plt Clumps, EDTA Not Reportable 05/06/20 22:39 Large Platelets Not Reportable 05/06/20 22:39 Giant Platelets Not Reportable 05/06/20 22:39 Platelet Satelliting Not Reportable 05/06/20 22:39 Plt Morphology Comment Not Reportable 05/06/20 22:39 RBC Morphology Normal 05/06/20 22:39 Dimorphic RBCs Not Reportable 05/06/20 22:39 Polychromasia Not Reportable 05/06/20 22:39 Hypochromasia Not Reportable 05/06/20 22:39 Poikilocytosis Not Reportable 05/06/20 22:39 Anisocytosis Not Reportable 05/06/20 22:39 Microcytosis Not Reportable 05/06/20 22:39 Macrocytosis Not Reportable 05/06/20 22:39 Spherocytes Not Reportable 05/06/20 22:39 Pappenheimer Bodies Not Reportable 05/06/20 22:39 Sickle Cells Not Reportable 05/06/20 22:39 Target Cells Not Reportable 05/06/20 22:39 Tear Drop Cells Not Reportable 05/06/20 22:39 Ovalocytes Not Reportable 05/06/20 22:39 Helmet Cells Not Reportable 05/06/20 22:39 [place] Bodies Not Reportable 05/06/20 22:39 [place] Rings Not Reportable 05/06/20 22:39 Peng Cells Not Reportable 05/06/20 22:39 Bite Cells Not Reportable 05/06/20 22:39 Crenated Cell Not Reportable 05/06/20 22:39 Elliptocytes Not Reportable 05/06/20 22:39 Acanthocytes (Spur) Not Reportable 05/06/20 22:39 Rouleaux Not Reportable 05/06/20 22:39 Hemoglobin C Crystals Not Reportable 05/06/20 22:39 Schistocytes Not Reportable 05/06/20 22:39 Malaria parasites Not Reportable 05/06/20 22:39 Edis Bodies Not Reportable 05/06/20 22:39 Hem Pathologist Commnt No 05/06/20 22:39 PT 13.0 Sec. (12.2-14.9) 05/06/20 22:39 INR 1.00 (0.87-1.13) 05/06/20 22:39 APTT 24.7 Sec. (24.2-36.6) 05/06/20 22:39 Thrombin Time 16.6 Sec. (15.1-19.6) 05/06/20 22:39 Sodium 140 mmol/L (137-145) 05/10/20 04:46 Potassium 3.6 mmol/L (3.6-5.0) 05/10/20 04:46 Chloride 104.3 mmol/L (98-107) 05/10/20 04:46 Carbon Dioxide 25 mmol/L (22-30) 05/10/20 04:46 Anion Gap 14 mmol/L 05/10/20 04:46 BUN 20 mg/dL (9-20) 05/10/20 04:46 Creatinine 0.8 mg/dL (0.8-1.3) 05/10/20 04:46 Estimated GFR > 60 ml/min 05/10/20 04:46 BUN/Creatinine Ratio 25 % 05/10/20 04:46 Glucose 85 mg/dL (75-100) 05/10/20 04:46 POC Glucose 107 mg/dL (70-105) H 05/07/20 20:00 Calcium 9.1 mg/dL (8.4-10.2) 05/10/20 04:46 Magnesium 2.00 mg/dL (1.7-2.3) 05/06/20 22:39 Total Bilirubin 1.00 mg/dL (0.1-1.2) 05/06/20 22:39 AST 24 units/L (5-40) 05/06/20 22:39 ALT 14 units/L (7-56) 05/06/20 22:39 Alkaline Phosphatase 74 units/L (35-129) 05/06/20 22:39 Total Creatine Kinase 68 units/L (55-170) 05/06/20 22:39 CK-MB (CK-2) < 1.0 ng/mL (0.0-4.0) 05/06/20 22:39 CK-MB (CK-2) Rel Index 1.4 (0-4) 05/06/20 22:39 Troponin T < 0.010 ng/mL (0.00-0.029) 05/06/20 22:39 Total Protein 6.8 g/dL (6.3-8.2) 05/06/20 22:39 Albumin 4.5 g/dL (3.9-5) 05/06/20 22:39 Albumin/Globulin Ratio 2.0 % 05/06/20 22:39 Triglycerides 67 mg/dL (2-149) 05/08/20 18:53 Cholesterol 131 mg/dL (50-199) 05/08/20 18:53 LDL Cholesterol Direct 81 mg/dL (50-130) 05/08/20 18:53 HDL Cholesterol 48 mg/dL (40-59) 05/08/20 18:53 Cholesterol/HDL Ratio 2.72 % 05/08/20 18:53 Urine Color Yellow (Yellow) 05/06/20 Unknown Urine Turbidity Clear (Clear) 05/06/20 Unknown Urine pH 6.0 (5.0-7.0) 05/06/20 Unknown Ur Specific [place] > 1.059 (1.003-1.030) H 05/06/20 Unknown Urine Protein <15 mg/dl mg/dL (Negative) 05/06/20 Unknown Urine Glucose (UA) Neg mg/dL (Negative) 05/06/20 Unknown Urine Ketones Neg mg/dL (Negative) 05/06/20 Unknown Urine Blood Neg (Negative) 05/06/20 Unknown Urine Nitrite Neg (Negative) 05/06/20 Unknown Urine Bilirubin Neg (Negative) 05/06/20 Unknown Urine Urobilinogen < 2.0 mg/dL (<2.0) 05/06/20 Unknown Ur Leukocyte Esterase Neg (Negative) 05/06/20 Unknown Urine WBC (Auto) < 1.0 /HPF (0.0-6.0) 05/06/20 Unknown Urine RBC (Auto) 1.0 /HPF (0.0-6.0) 05/06/20 Unknown U Epithel Cells (Auto) 1.0 /HPF (0-13.0) 05/06/20 Unknown Urine Mucus Few /HPF 05/06/20 Unknown Urine Opiates Screen Presumptive negative 05/06/20 Unknown Urine Methadone Screen Presumptive negative 05/06/20 Unknown Ur Barbiturates Screen Presumptive negative 05/06/20 Unknown Ur Phencyclidine Scrn Presumptive negative 05/06/20 Unknown Ur Amphetamines Screen Presumptive negative 05/06/20 Unknown U Benzodiazepines Scrn Presumptive negative 05/06/20 Unknown Urine Cocaine Screen Presumptive negative 05/06/20 Unknown U Marijuana (THC) Screen Presumptive negative 05/06/20 Unknown Drugs of Abuse Note Disclamer 05/06/20 Unknown Plasma/Serum Alcohol < 0.01 % (0-0.07) 05/06/20 22:39 Coronavirus (PCR) Negative (Negative) 05/09/20 Unknown Tom/IV: Voiding Method Urinal Active Medications - Current Medications Current Medications: Generic Name Dose Route Start Last Admin Trade Name Freq PRN Reason Stop Dose Admin Acetaminophen 650 mg 05/07/20 02:02 05/10/20 16:07 Acetaminophen 325 Mg Tab PO 650 mg Q4H PRN Administration Headache Aspirin 325 mg 05/07/20 10:00 05/12/20 09:08 Aspirin 325 Mg Tab PO 325 mg QDAY JOSE Administration Atorvastatin Calcium 40 mg 05/08/20 22:00 05/11/20 21:21 Atorvastatin 40 Mg Tab PO 40 mg QHS JOSE Administration Citalopram Hydrobromide 10 mg 05/12/20 10:00 Citalopram 10 Mg Tab PO DAILY JOSE Escitalopram Oxalate 10 mg 05/12/20 10:00 05/12/20 09:07 Escitalopram 10 Mg Tab PO 10 mg DAILY JOSE Administration Levetiracetam 1,000 mg 05/08/20 10:00 05/12/20 09:08 Levetiracetam 500 Mg Tab PO 1,000 mg BID JOSE Administration Lorazepam 1 mg 05/07/20 08:30 05/09/20 11:51 Lorazepam 2 Mg/Ml Vial IV 1 mg Q1H PRN Administration Seizures Ondansetron HCl 4 mg 05/07/20 02:03 Ondansetron 4 Mg/2 Ml Inj IV Q8H PRN Nausea And Vomiting
[2020-05-12] MEDS: CITALOPRAM 10 MG TAB PO SCH (09:33)
[2020-05-12] MEDS ORDERED: ESCITALOPRAM 10 MG TAB PO SCH (10:00)
--- NOTE | 2020-05-12 10:43 | Consultation ---
History of Present Illness - Reason for Consult Consult date: 05/12/20 Reason for consult: AMS - History of Present Psychiatric Illness Per ER Note: The patient is a 49-year-old gentleman. He is not known to myself previously. He may have a history of stroke and/or seizure. It is unclear what his prior diagnoses are. The patient is brought to the hospital by emergency medical services. He is awake, follows commands, but confused. He only responds "yes." Nursing team informs me that the patient is brought to the hospital for shaking activity, confusion, change in speech pattern, and right arm shaking. His last known well time is not known. I attempted to interview this patient, he is sitting up in bed. He has expre ssive aphasia. He is unable to give me any information. When I tell him his name, he repeats his name to every question asked. The patient does appear to be having some psychosis as it is hard to tell at this point. He is looking around the room and in the chair as if looking for someone. He confused, and appears afraid. He jumps when I cough and I am at a distance from him. His eyes are bucked and he's staring at me intensely. When leaving the room, I turn to look at him. He jumps again. PAST PSYCHIATRIC HISTORY: Unable to assess PAST MEDICAL HISTORY: Unable to assess Family Psychiatric History: None reported or documented SOCIAL HISTORY Unable to assess REVIEW OF SYSTEMS Unable to assess MENTAL STATUS EXAMINATION Unable to assess Assessment and Plan (1) Altered Mental Status Current Visit: Yes Status: Acute Treatment Start Haldol 0.5mg po BID Start Remeron 7.5mg po qhs Agree with Celexa 10mg po daily Sitter: Defer to primary Medical: Per primary Disposition: Do not recommend acute psychiatric inpatient at this time. This may change once the patient is medically clear. Will treat and monitor psych progress. Will follow. Thank you for this consult. Case staffed with Dr. Arguelles Medications and Allergies Allergies Allergy/AdvReac Type Severity Reaction Status Date / Time No Known Allergies Allergy Unverified 05/07/20 00:16 Home Medications Medication Instructions Recorded Confirmed Last Taken Type Aspirin [Adult Aspirin] 81 mg PO QDAY 05/07/20 05/07/20 Unknown History Atorvastatin Calcium [Lipitor] 80 mg PO QDAY 05/07/20 05/07/20 Unknown History Escitalopram [Lexapro] 10 mg PO DAILY 05/07/20 05/07/20 Unknown History Lisinopril/Hydrochlorothiazide 1 each PO QDAY 05/07/20 05/07/20 Unknown History [Zestoretic 10-12.5 mg Tablet] levETIRAcetam [Keppra TAB] 750 mg PO BID 05/07/20 05/07/20 Unknown History Citalopram [celeXA] 10 mg PO DAILY 05/09/20 05/09/20 Unknown History Active Meds: Active Medications Acetaminophen (Acetaminophen 325 Mg Tab) 650 mg PO Q4H PRN PRN Reason: Headache Last Admin: 05/10/20 16:07 Dose: 650 mg Documented by: Aspirin (Aspirin 325 Mg Tab) 325 mg PO QDAY [facility] Last Admin: 05/12/20 09:08 Dose: 325 mg Documented by: Atorvastatin Calcium (Atorvastatin 40 Mg Tab) 40 mg PO QHS [facility] Last Admin: 05/11/20 21:21 Dose: 40 mg Documented by: Citalopram Hydrobromide (Citalopram 10 Mg Tab) 10 mg PO DAILY [facility] Last Admin: 05/12/20 09:33 Dose: Not Given Documented by: Levetiracetam (Levetiracetam 500 Mg Tab) 1,000 mg PO BID [facility] Last Admin: 05/12/20 09:08 Dose: 1,000 mg Documented by: Lorazepam (Lorazepam 2 Mg/Ml Vial) 1 mg IV Q1H PRN PRN Reason: Seizures Last Admin: 05/09/20 11:51 Dose: 1 mg Documented by: Ondansetron HCl (Ondansetron 4 Mg/2 Ml Inj) 4 mg IV Q8H PRN PRN Reason: Nausea And Vomiting Mental Status Exam - Vital signs Last Vital Signs Temp 98.5 F 05/12/20 08:31 Pulse 88 05/12/20 08:31 Resp 18 05/12/20 08:31 BP 133/88 05/12/20 08:31 Pulse Ox 98 05/12/20 08:31 Results Result Diagrams: 05/06/20 22:39 05/10/20 04:46 All other labs normal.
[2020-05-12] MEDS: HALOPERIDOL 1 MG TAB PO SCH ×3 (11:40→22:43)
--- NOTE | 2020-05-12 12:32 | Event Note ---
Date: 05/12/20 Spoke with the patient's spouse, she says the behaviors exhibited are the ones he's had since around March. She says he does seem afraid all the time, but hasn't had any psych issues. She says he seems to get like this when he's in an unfamiliar environment. She says she had stopped given him the celexa and he was acting better. She says he's not been taking the celexa but okay with him staying on it. Also discussed haldol and remeron to see if it would improve the patient's sleep, fear and paranoia. The patient's spouse agrees.
[2020-05-12] MEDS: LORazepam 2 MG/ML VIAL IV PRN (22:42)
[2020-05-12] MEDS: MIRTAZAPINE 15 MG TAB PO SCH (22:42)
[2020-05-13] MEDS: CITALOPRAM 10 MG TAB PO SCH (09:40)
[2020-05-13] MEDS: levETIRAcetam 500 MG TAB PO SCH ×2 (09:42→21:27)
[2020-05-13] MEDS: HALOPERIDOL 1 MG TAB PO SCH ×2 (09:43→21:27)
[2020-05-13] MEDS: ASPIRIN 325 MG TAB PO SCH (09:44)
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
[2020-05-13 11:21] LABS: Basophils # (Auto) 0.1 K/mm3 (0.0-0.1); Basophils % (Auto) 0.7 % (0.0-1.8); Hematocrit 43.1 % (35.5-45.6); Hemoglobin 14.7 gm/dl (11.8-15.2); Lymphocytes # (Auto) 2.5 K/mm3 (1.2-5.4); Lymphocytes % (Auto) 21.4 % (13.4-35.0); Mean Corpuscular HGB Conc 34 % (32-34); Mean Corpuscular Volume 97 fl (84-94); Monocytes # (Auto) 1.1 K/mm3 (0.0-0.8); Monocytes % (Auto) 9.2 % (0.0-7.3); Platelet Count 154 K/mm3 (140-440); Red Blood Count 4.44 M/mm3 (3.65-5.03); Red Cell Distribution Width 13.1 % (13.2-15.2)
[2020-05-13 11:38] LABS: BUN/Creatinine Ratio 22; Blood Urea Nitrogen 22 mg/dL (9-20); Calcium 9.4 mg/dL (8.4-10.2); Hemolysis Index 5
--- NOTE | 2020-05-13 11:42 | Progress Note ---
Subjective - Reason for Consult Consult date: 05/13/20 Reason for consult: AMS - Chief Complaint Chief complaint: Per Hospitalist Note: Patient is a 50-year-old male with past medical history of seizure disorder, cerebrovascular accident with right-sided weakness and speech impairment presenting with altered mental status. Patient is noncommunicative and was alone during evaluation with no body history gave account of what happened. History is based on information from the emergency room and patient's medical record. There is worsening speech impairment , generalized weakness, and shaking sensation of the body at home prior to presentation. Per Nurse Note: Speech therapist at bedside with patient. pt . is alert but disoriented, expressive aphagia. The patient was seen today, he is sitting up in the bed. He is disoriented and unable to communicate effectively. He speaks one words, and repeated what I said in one words. He smiles and looks around as I'm speaking to him. REVIEW OF SYSTEMS Unable to assess MENTAL STATUS EXAMINATION Unable to assess Assessment and Plan (1) Delirium Current Visit: Yes Status: Acute Treatment Increased Haldol 1mg po BID Continue Remeron 7.5mg po qhs Increased Celexa 20mg po daily Sitter: Defer to primary Medical: Per primary Disposition: Do not recommend acute psychiatric inpatient at this time. This may change once the patient is medically clear. Will treat and monitor psych progress. Will follow. Thank you for this consult. Case staffed with Dr. Arguelles Mental Status Exam - Vital signs Last Vital Signs Temp 97.8 F 05/13/20 07:58 Pulse 79 05/13/20 07:58 Resp 16 05/13/20 07:58 BP 128/87 05/13/20 07:58 Pulse Ox 97 05/13/20 07:58
[2020-05-13] MEDS: FOLIC ACID 1 MG TAB PO SCH (14:49)
[2020-05-13] MEDS: THIAMINE 100 MG in SODIUM CHLORIDE 0.9% 50 ML IV SCH (14:49)
[2020-05-13] MEDS: MULTIVITAMINS ,THERAPEUTIC TAB PO SCH (14:49)
[2020-05-13] MEDS: MIRTAZAPINE 15 MG TAB PO SCH (21:27)
[2020-05-14] MEDS ORDERED: CITALOPRAM 20 MG TAB PO SCH (10:00)
[2020-05-14] MEDS: HALOPERIDOL 1 MG TAB PO SCH (10:37)
[2020-05-14] MEDS: FOLIC ACID 1 MG TAB PO SCH (10:37)
[2020-05-14] MEDS: MULTIVITAMINS ,THERAPEUTIC TAB PO SCH (10:37)
[2020-05-14] MEDS: ASPIRIN 325 MG TAB PO SCH (10:37)
[2020-05-14] MEDS: levETIRAcetam 500 MG TAB PO SCH (10:38)
[2020-05-14] MEDS: THIAMINE 100 MG in SODIUM CHLORIDE 0.9% 50 ML IV SCH (10:38)
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
[2020-05-14 11:21] VITALS: BP 136/89
== END 2020-05-14 13:53 | DRG 71 ==
LOC: ED 21:54 → 4A 05-07 00:32 → OBSVTOIN 05-08 18:15
PROVIDERS: ADMIT Internal Medicine; ATTEND Internal Medicine
DX: G93.41 Metabolic encephalopathy (principal); I69.951 Hemiplegia and hemiparesis following unspecified cerebrovascular disease affecting right dominant side; Z20.822 Contact with and (suspected) exposure to COVID-19; G40.909 Epilepsy, unspecified, not intractable, without status epilepticus; Z79.82 Long term (current) use of aspirin; Z79.01 Long term (current) use of anticoagulants; Z87.898 Personal history of other specified conditions
CPT/HCPCS: 36415; 70450; 70496; 70498; 70553; 71045; 80048; 80053; 80061; 80307; 80320; 81001; 82550; 82553; 82962; 83735; 84484; 85007; 85025; 85610; 85670; 85730; 93005; 93306; 96374; 96375; G0378; A9270-GY; A9575; G0480; J1953; J2060; J3411; J7120; Q9967; U0003

== ENCOUNTER 2020-05-29 17:21 | Inpatient (IN) | payer OTHER ==
[2020-05-29] MEDS ORDERED: SODIUM CHLORIDE 0.9% 1000 ML 1,000 ML IV ONE ×2 (18:08→20:34)
[2020-05-29] MEDS ORDERED: levETIRAcetam 1000 MG/NS 0.75% 1,000 MG/100 ML BAG IV ONE (18:18)
--- NOTE | 2020-05-29 18:36 | Emergency Department Report ---
ED Altered Mental Status HPI - General Chief Complaint: Altered Mental Status Stated Complaint: SEIZURE/FALL Time Seen by Provider: 05/29/20 18:02 Source: EMS Mode of arrival: Stretcher Limitations: Altered Mental Status - History of Present Illness Initial Comments: Chief complaint: Altered mental status possible seizure HPI: This is a 50-year-old male with history of acute on chronic metabolic encephalopathy, depression, seizure, speech impairment, CVA, psychosis, PTSD who was found altered on the ground. Patient is a resident of residential facility [facility]. Patient was found unresponsive. Nursing staff concerning patient had a seizure. He received 2 mg IM of Ativan prior to arrival. Patient is currently unresponsive. He is lethargic. He appears sedated. Patient was admitted last month. He was diagnosed with acute on chronic metabolic encephalopathy possible PTSD. who is POA gave further history. She came to the emergency department to check on her . Since he was discharged from the hospital 2 weeks ago to rehab debilitation program at [facility], patient has had decline. She suspects haloperidol has caused him to be sedated and altered. Patient is able to ambulate with assistance. He does have expressive aphasia. However he does recognize her. After 1 week at the residential facility, patient was confused and combative. He had disorganized speech. He became more more lethargic. Yesterday she had a residential facility to stop Haldol. Complaint: altered mental status, decreased responsiveness -: This afternoon Severity: severe Consistency of Symptoms: constant Context: seizure disorder - Related Data Home Medications Medication Instructions Recorded Confirmed Last Taken Aspirin [Adult Aspirin] 81 mg PO QDAY 05/07/20 05/07/20 Unknown Atorvastatin Calcium [Lipitor] 80 mg PO QDAY 05/07/20 05/07/20 Unknown Escitalopram [Lexapro] 10 mg PO DAILY 05/07/20 05/07/20 Unknown Lisinopril/Hydrochlorothiazide 1 each PO QDAY 05/07/20 05/07/20 Unknown [Zestoretic 10-12.5 mg Tablet] levETIRAcetam [Keppra TAB] 750 mg PO BID 05/07/20 05/07/20 Unknown Citalopram [celeXA] 10 mg PO DAILY 05/09/20 05/09/20 Unknown Previous Rx's Medication Instructions Recorded Last Taken Type Aspirin 325 mg PO QDAY #30 tablet 05/14/20 Unknown Rx AtorvaSTATin [Lipitor] 40 mg PO QHS #30 tablet 05/14/20 Unknown Rx Citalopram [Celexa] 20 mg PO QDAY #30 tablet 05/14/20 Unknown Rx Folic Acid [Folvite] 1 mg PO QDAY #30 tablet 05/14/20 Unknown Rx Mirtazapine [Remeron 15mg TAB] 7.5 mg PO QHS #30 tablet 05/14/20 Unknown Rx Multivitamin Tab [Multiple Vitamin 1 each PO QDAY #30 tablet 05/14/20 Unknown Rx TAB (Theragran)] Thiamine [Vitamin B-1] 100 mg PO QDAY #30 tablet 05/14/20 Unknown Rx haloperidoL [Haldol] 1 mg PO BID #30 tablet 05/14/20 Unknown Rx levETIRAcetam [Keppra TAB] 1,000 mg PO BID #60 tablet 05/14/20 Unknown Rx Allergies Allergy/AdvReac Type Severity Reaction Status Date / Time No Known Allergies Allergy Unverified 05/07/20 00:16 ED Review of Systems ROS: Stated complaint: SEIZURE/FALL Other details as noted in HPI Comment: Unobtainable due to pts medical conditions (Altered mental status, history of encephalopathy) ED Past Medical Hx - Past Medical History Previous Medical History?: Yes Hx Hypertension: Yes Hx CVA: Yes Hx Seizures: Yes - Social History Smoking Status: Former Smoker - Medications Home Medications: Home Medications Medication Instructions Recorded Confirmed Last Taken Type Aspirin [Adult Aspirin] 81 mg PO QDAY 05/07/20 05/07/20 Unknown History Atorvastatin Calcium [Lipitor] 80 mg PO QDAY 05/07/20 05/07/20 Unknown History Escitalopram [Lexapro] 10 mg PO DAILY 05/07/20 05/07/20 Unknown History Lisinopril/Hydrochlorothiazide 1 each PO QDAY 05/07/20 05/07/20 Unknown History [Zestoretic 10-12.5 mg Tablet] levETIRAcetam [Keppra TAB] 750 mg PO BID 05/07/20 05/07/20 Unknown History Citalopram [celeXA] 10 mg PO DAILY 05/09/20 05/09/20 Unknown History Aspirin 325 mg PO QDAY #30 tablet 05/14/20 Unknown Rx AtorvaSTATin [Lipitor] 40 mg PO QHS #30 tablet 05/14/20 Unknown Rx Citalopram [Celexa] 20 mg PO QDAY #30 tablet 05/14/20 Unknown Rx Folic Acid [Folvite] 1 mg PO QDAY #30 tablet 05/14/20 Unknown Rx Mirtazapine [Remeron 15mg TAB] 7.5 mg PO QHS #30 tablet 05/14/20 Unknown Rx Multivitamin Tab [Multiple Vitamin 1 each PO QDAY #30 tablet 05/14/20 Unknown Rx TAB (Theragran)] Thiamine [Vitamin B-1] 100 mg PO QDAY #30 tablet 05/14/20 Unknown Rx haloperidoL [Haldol] 1 mg PO BID #30 tablet 05/14/20 Unknown Rx levETIRAcetam [Keppra TAB] 1,000 mg PO BID #60 tablet 05/14/20 Unknown Rx ED Physical Exam - General Limitations: Altered Mental Status General appearance: in no apparent distress, lethargic, other (Mouth open, p rotecting airway,) - Head Head exam: Present: atraumatic, normocephalic - Eye Eye exam: Absent: scleral icterus, conjunctival injection - ENT ENT exam: Present: mucous membranes dry - Neck Neck exam: Present: normal inspection, full ROM - Respiratory Respiratory exam: Present: normal lung sounds bilaterally. Absent: respiratory distress, wheezes, rales, rhonchi - Cardiovascular Cardiovascular Exam: Present: regular rate, normal rhythm, normal heart sounds. Absent: systolic murmur, diastolic murmur, rubs, gallop - GI/Abdominal GI/Abdominal exam: Present: soft, normal bowel sounds. Absent: distended, tenderness, guarding, rebound - Rectal Rectal exam: Present: deferred - Extremities Exam Extremities exam: Present: normal inspection - Neurological Exam Neurological exam: Present: altered - Psychiatric Psychiatric exam: Present: flat affect - Skin Skin exam: Present: warm, dry, intact, normal color. Absent: rash ED Course Vital Signs 05/29/20 05/29/20 05/29/20 18:15 18:25 19:00 Temperature 97.8 F Pulse Rate 87 82 84 Respiratory 18 18 16 Rate Blood Pressure 113/69 117/79 106/75 [Left] O2 Sat by Pulse 99 100 98 Oximetry - Lab Data Result diagrams: 05/29/20 18:13 05/29/20 18:13 Lab Results 05/29/20 05/29/20 05/29/20 Range/Units 18:13 18:13 18:13 WBC 10.2 (4.5-11.0) K/mm3 RBC 4.12 (3.65-5.03) M/mm3 Hgb 13.6 (11.8-15.2) gm/dl Hct 40.1 (35.5-45.6) % MCV 97 H (84-94) fl MCH 33 H (28-32) pg MCHC 34 (32-34) % RDW 12.9 L (13.2-15.2) % Plt Count 159 (140-440) K/mm3 Lymph % (Auto) 19.8 (13.4-35.0) % [place] % (Auto) 9.1 H (0.0-7.3) % Eos % (Auto) 0.6 (0.0-4.3) % Baso % (Auto) 0.5 (0.0-1.8) % Lymph # (Auto) 2.0 (1.2-5.4) K/mm3 [place] # (Auto) 0.9 H (0.0-0.8) K/mm3 Eos # (Auto) 0.1 (0.0-0.4) K/mm3 Baso # (Auto) 0.1 (0.0-0.1) K/mm3 Seg Neutrophils % 70.0 (40.0-70.0) % Seg Neutrophils # 7.1 (1.8-7.7) K/mm3 Sodium 144 (137-145) mmol/L Potassium 3.4 L (3.6-5.0) mmol/L Chloride 104.1 (98-107) mmol/L Carbon Dioxide 29 (22-30) mmol/L Anion Gap 14 mmol/L BUN 34 H (9-20) mg/dL Creatinine 1.0 (0.8-1.3) mg/dL Estimated GFR > 60 ml/min BUN/Creatinine Ratio 34 % Glucose 107 H (75-100) mg/dL Calcium 9.7 (8.4-10.2) mg/dL Total Bilirubin 1.20 (0.1-1.2) mg/dL AST 40 (5-40) units/L ALT 20 (7-56) units/L Alkaline Phosphatase 77 (35-129) units/L Total Protein 7.5 (6.3-8.2) g/dL Albumin 4.4 (3.9-5) g/dL Albumin/Globulin Ratio 1.4 % TSH 0.709 (0.270-4.200) mlU/mL Urine Color (Yellow) Urine Turbidity (Clear) Urine pH (5.0-7.0) Ur Specific [place] (1.003-1.030) Urine Protein (Negative) mg/dL Urine Glucose (UA) (Negative) mg/dL Urine Ketones (Negative) mg/dL Urine Blood (Negative) Urine Nitrite (Negative) Urine Bilirubin (Negative) Urine Urobilinogen (<2.0) mg/dL Ur Leukocyte Esterase (Negative) Urine WBC (Auto) (0.0-6.0) /HPF Urine RBC (Auto) (0.0-6.0) /HPF U Epithel Cells (Auto) (0-13.0) /HPF Urine Mucus /HPF / Range/Units 21:28 WBC (4.5-11.0) K/mm3 RBC (3.65-5.03) M/mm3 Hgb (11.8-15.2) gm/dl Hct (35.5-45.6) % MCV (84-94) fl MCH (28-32) pg MCHC (32-34) % RDW (13.2-15.2) % Plt Count (140-440) K/mm3 Lymph % (Auto) (13.4-35.0) % [place] % (Auto) (0.0-7.3) % Eos % (Auto) (0.0-4.3) % Baso % (Auto) (0.0-1.8) % Lymph # (Auto) (1.2-5.4) K/mm3 [place] # (Auto) (0.0-0.8) K/mm3 Eos # (Auto) (0.0-0.4) K/mm3 Baso # (Auto) (0.0-0.1) K/mm3 Seg Neutrophils % (40.0-70.0) % Seg Neutrophils # (1.8-7.7) K/mm3 Sodium (137-145) mmol/L Potassium (3.6-5.0) mmol/L Chloride (98-107) mmol/L Carbon Dioxide (22-30) mmol/L Anion Gap mmol/L BUN (9-20) mg/dL Creatinine (0.8-1.3) mg/dL Estimated GFR ml/min BUN/Creatinine Ratio % Glucose (75-100) mg/dL Calcium (8.4-10.2) mg/dL Total Bilirubin (0.1-1.2) mg/dL AST (5-40) units/L ALT (7-56) units/L Alkaline Phosphatase (35-129) units/L Total Protein (6.3-8.2) g/dL Albumin (3.9-5) g/dL Albumin/Globulin Ratio % TSH (0.270-4.200) mlU/mL Urine Color Yellow (Yellow) Urine Turbidity Clear (Clear) Urine pH 6.0 (5.0-7.0) Ur Specific [place] 1.026 (1.003-1.030) Urine Protein 30 mg/dl (Negative) mg/dL Urine Glucose (UA) Neg (Negative) mg/dL Urine Ketones 80 (Negative) mg/dL Urine Blood Neg (Negative) Urine Nitrite Neg (Negative) Urine Bilirubin Neg (Negative) Urine Urobilinogen 4.0 (<2.0) mg/dL Ur Leukocyte Esterase Neg (Negative) Urine WBC (Auto) 1.0 (0.0-6.0) /HPF Urine RBC (Auto) < 1.0 (0.0-6.0) /HPF U Epithel Cells (Auto) < 1.0 (0-13.0) /HPF Urine Mucus 2+ /HPF - Radiology Data Radiology results: report reviewed, image reviewed Findings Reporting MD: Micheal Coleman Dictation Time: May 29, 2020 18:36 Lithoduplicator Operator: Not available Pet House Sitter Date: CT BRAIN: 05/29/2020 INDICATION / CLINICAL INFORMATION: fall altered mental status. COMPARISON: MRI brain 05/09/2020. CT brain 05/06/2020. CT angiogram brain 05/06/2020 FINDINGS: BRAIN/INTRACRANIAL STRUCTURES: Unenhanced CT images of the brain demonstrate no evidence of acute intracranial abnormality. Ventricles and sulci are within normal limits of size and shape for a patient of this age. There is no evidence of hemorrhage or mass. There are no abnormal extra-axial fluid collections. EXTRACRANIAL STRUCTURES: Unremarkable. IMPRESSION: No acute abnormality. No change when compared to the recent prior exams. - Medical Decision Making 1. Altered Mental Status due to medication effect. No evidence of metabolic derangement or infection. Admitted for further treatment and evaluation. After 4 hours observation emergency department, patient is awake but dazed. He will make eye contact. Additional consideration dystonia or tardive dyskinesia. I did order 2 mg of Cogentin. 2. Dehydration evidenced with tacky dry mucous membranes, confirmed by elevated BUN ketonuria. Patient received IV fluid therapy. According to MAR patient is on hydrochlorothiazide diuretic. Daughter informed me that patient has placed on pured diet due to recent physical decline. Critical care attestation.: If time is entered above; I have spent that time in minutes in the direct care of this critically ill patient, excluding procedure time. ED Disposition Clinical Impression: Acute delirium, Polypharmacy, Dehydration Disposition: OP ADMIT IP TO THIS HOSP Is pt being admited?: Yes Does the pt Need Aspirin: No Condition: Stable Referrals: LAKEISHA MADDEN MD [Primary Care Provider] - 3-5 Days
[2020-05-29 18:50] LABS: Basophils # (Auto) 0.1 K/mm3 (0.0-0.1); Basophils % (Auto) 0.5 % (0.0-1.8); Eosinophils # (Auto) 0.1 K/mm3 (0.0-0.4); Eosinophils % (Auto) 0.6 % (0.0-4.3); Hematocrit 40.1 % (35.5-45.6); Hemoglobin 13.6 gm/dl (11.8-15.2); Lymphocytes % (Auto) 19.8 % (13.4-35.0); Mean Corpuscular HGB Conc 34 % (32-34); Mean Corpuscular Volume 97 fl (84-94); Monocytes # (Auto) 0.9 K/mm3 (0.0-0.8); Monocytes % (Auto) 9.1 % (0.0-7.3); Platelet Count 159 K/mm3 (140-440); Red Blood Count 4.12 M/mm3 (3.65-5.03); Red Cell Distribution Width 12.9 % (13.2-15.2)
[2020-05-29 19:10] LABS: Alanine Aminotransferase 20 units/L (7-56); Albumin 4.4 g/dL (3.9-5); BUN/Creatinine Ratio 34; Blood Urea Nitrogen 34 mg/dL (9-20); Calcium 9.7 mg/dL (8.4-10.2); Hemolysis Index 4
--- NOTE | 2020-05-29 19:41 | Cat Scan Report ---
CT BRAIN: 05/29/2020 INDICATION / CLINICAL INFORMATION: fall altered mental status. COMPARISON: MRI brain 05/09/2020. CT brain 05/06/2020. CT angiogram brain 05/06/2020 FINDINGS: BRAIN/INTRACRANIAL STRUCTURES: Unenhanced CT images of the brain demonstrate no evidence of acute int racranial abnormality. Ventricles and sulci are within normal limits of size and shape for a patient of this age. There is no evidence of hemorrhage or mass. There are no abnormal extra-axial fluid collections. EXTRACRANIAL STRUCTURES: Unremarkable. IMPRESSION: No acute abnormality. No change when compared to the recent prior exams. All CT scans at this location are performed using dose reduction to ALARA by means of automated expos ure control. Signer Name: Micheal Coleman MD Signed: 05/29/2020 7:36 PM Workstation Name: [id number]
[2020-05-29 21:44] LABS: Bilirubin,Urine NEG (Negative); Blood,Urine NEG (Negative); Color,Urine Yellow (Yellow); Mucus,Urine 2+ /HPF; RBC,Urine < 1.0 /HPF (0.0-6.0)
[2020-05-29] MEDS ORDERED: ONDANSETRON 4 MG/2 ML INJ IV PRN (22:12)
[2020-05-29] MEDS ORDERED: ACETAMINOPHEN 325 MG TAB PO PRN (22:12)
[2020-05-29] MEDS ORDERED: BENZTROPINE 2 MG/2 ML INJ IM ONE (22:13)
[2020-05-29] MEDS ORDERED: MAGNESIUM HYDROXIDE (MOM) ORAL LIQD UDC PO PRN (23:03)
--- NOTE | 2020-05-29 23:25 | History and Physical Report ---
History of Present Illness Date of examination: 05/29/20 Date of admission: 05/29/20 22:12 Chief complaint: Altered Mental Status History of present illness: 50-year-old male with known history of acute on chronic metabolic encephalopathy, depression, speech impairment, seizure disorder, PTSD was brought to the emergency room today with altered mental status. Patient is a resident of nursing home [facility]. Nursing staff at the facility were concerned that patient may have had a seizure. He was given IM Ativan prior to arrival in the emergency room. Records indicates the patient was admitted last month and was diagnosed with acute on chronic metabolic encephalopathy and also PTSD. Patient is a poor historian, most of the history was gotten from the ER physician. Patient is said to be on multiple medications at the skilled facility. Work-up in the emergency room today reveals elevated BUN/creatinine ratio. Patient is being admitted with altered mental status with possible dehydration. Past History Past Medical History: hypertension, seizures, stroke Past Surgical History: No surgical history Social history: no significant social history Family history: no significant family history Medications and Allergies Allergies Allergy/AdvReac Type Severity Reaction Status Date / Time No Known Allergies Allergy Unverified 05/07/20 00:16 Home Medications Medication Instructions Recorded Confirmed Last Taken Type Aspirin [Adult Aspirin] 81 mg PO QDAY 05/07/20 05/07/20 Unknown History Atorvastatin Calcium [Lipitor] 80 mg PO QDAY 05/07/20 05/07/20 Unknown History Escitalopram [Lexapro] 10 mg PO DAILY 05/07/20 05/07/20 Unknown History Lisinopril/Hydrochlorothiazide 1 each PO QDAY 05/07/20 05/07/20 Unknown History [Zestoretic 10-12.5 mg Tablet] levETIRAcetam [Keppra TAB] 750 mg PO BID 05/07/20 05/07/20 Unknown History Citalopram [celeXA] 10 mg PO DAILY 05/09/20 05/09/20 Unknown History Aspirin 325 mg PO QDAY #30 tablet 05/14/20 Unknown Rx AtorvaSTATin [Lipitor] 40 mg PO QHS #30 tablet 05/14/20 Unknown Rx Citalopram [Celexa] 20 mg PO QDAY #30 tablet 05/14/20 Unknown Rx Folic Acid [Folvite] 1 mg PO QDAY #30 tablet 05/14/20 Unknown Rx Mirtazapine [Remeron 15mg TAB] 7.5 mg PO QHS #30 tablet 05/14/20 Unknown Rx Multivitamin Tab [Multiple Vitamin 1 each PO QDAY #30 tablet 05/14/20 Unknown Rx TAB (Theragran)] Thiamine [Vitamin B-1] 100 mg PO QDAY #30 tablet 05/14/20 Unknown Rx haloperidoL [Haldol] 1 mg PO BID #30 tablet 05/14/20 Unknown Rx levETIRAcetam [Keppra TAB] 1,000 mg PO BID #60 tablet 05/14/20 Unknown Rx Active Meds: Active Medications Acetaminophen (Acetaminophen 325 Mg Tab) 650 mg PO Q4H PRN PRN Reason: Pain MILD(1-3)/Fever >100.5/[place] Aspirin (Aspirin 325 Mg Tab) 325 mg PO QDAY [facility] Atorvastatin Calcium (Atorvastatin 40 Mg Tab) 40 mg PO QHS [facility] Citalopram Hydrobromide (Citalopram 20 Mg Tab) 20 mg PO QDAY [facility] Escitalopram Oxalate (Escitalopram 10 Mg Tab) 10 mg PO DAILY [facility] Folic Acid (Folic Acid 1 Mg Tab) 1 mg PO QDAY [facility] Sodium Chloride (Nacl 0.9% 1000 Ml) 1,000 mls @ 125 mls/hr IV DIRECT [facility] Magnesium Hydroxide (Magnesium Hydroxide (Mom) Oral Liqd Udc) 30 ml PO Q4H PRN PRN Reason: Constipation Mirtazapine (Mirtazapine 15 Mg Tab) 7.5 mg PO QHS [facility] Morphine Sulfate (Morphine 2 Mg/1 Ml Inj) 2 mg IV Q4H PRN PRN Reason: Pain, Moderate (4-6) Multivitamins (Multivitamins ,Therapeutic Tab) 1 each PO QDAY [facility] Ondansetron HCl (Ondansetron 4 Mg/2 Ml Inj) 4 mg IV Q8H PRN PRN Reason: Nausea And Vomiting Sodium Chloride (Sodium Chloride 0.9% 10 Ml Flush Syringe) 10 ml IV BID [facility] Sodium Chloride (Sodium Chloride 0.9% 10 Ml Flush Syringe) 10 ml IV PRN PRN PRN Reason: LINE FLUSH Thiamine HCl (Thiamine 100 Mg Tab) 100 mg PO QDAY [facility] Review of Systems ROS unobtainable: due to mental status Exam - Constitutional Vitals: Temp Pulse Resp BP Pulse Ox 97.8 F 84 16 106/75 98 05/29/20 18:25 05/29/20 19:00 05/29/20 19:00 05/29/20 19:00 05/29/20 19:00 General appearance: Present: no acute distress, well-nourished - EENT Eyes: Present: PERRL, EOM intact. Absent: scleral icterus ENT: hearing intact, clear oral mucosa, dentition normal - Neck Neck: Present: supple, normal ROM - Respiratory Respiratory effort: normal Respiratory: bilateral: CTA - Cardiovascular Rhythm: regular Heart Sounds: Present: S1 & S2. Absent: gallop, systolic murmur, diastolic murmur, rub, click - Extremities Extremities: no ischemia, pulses intact, pulses symmetrical, No edema, normal temperature, normal color, Full ROM Peripheral Pulses: within normal limits - Abdominal General gastrointestinal: Present: soft, non-tender, non-distended, normal bowel sounds. Absent: mass - Integumentary Integumentary: Present: clear, warm, dry. Absent: rash - Musculoskeletal Musculoskeletal: strength equal bilaterally - Psychiatric Psychiatric: cooperative - Neurologic Neurologic: CNII-XII intact, no focal deficits, moves all extremities, other (Confused) Results - Labs CBC & Chem 7: 05/30/20 04:50 05/30/20 04:50 Labs: Abnormal lab results 05/29/20 05/29/20 Range/Units 18:13 18:13 MCV 97 H (84-94) fl MCH 33 H (28-32) pg RDW 12.9 L (13.2-15.2) % [place] % (Auto) 9.1 H (0.0-7.3) % [place] # (Auto) 0.9 H (0.0-0.8) K/mm3 Potassium 3.4 L (3.6-5.0) mmol/L BUN 34 H (9-20) mg/dL Glucose 107 H (75-100) mg/dL Assessment and Plan - Patient Problems (1) Acute delirium Current Visit: Yes Status: Acute Plan to address problem: Etiology unclear. However it may be multifactorial including dehydration and polypharmacy. Will monitor mental status. (2) Dehydration Current Visit: Yes Status: Acute Plan to address problem: Patient placed on IV fluid. We will monitor chemistry. (3) History of seizure Current Visit: No Status: Acute Plan to address problem: Patient will be placed on seizure precautions. We will resume routine home medications. We will request neurology evaluation. (4) DVT prophylaxis Current Visit: Yes Status: Acute Plan to address problem: Patient placed on subcutaneous heparin. (5) Full code status Current Visit: Yes Status: Acute Plan to address problem: Patient is full code.
[2020-05-30] MEDS: SODIUM CHLORIDE 0.9% 1000 ML 1,000 ML IV SCH ×2 (02:55→18:41)
[2020-05-30 05:28] LABS: Basophils # (Auto) 0.1 K/mm3 (0.0-0.1); Basophils % (Auto) 0.6 % (0.0-1.8); Eosinophils # (Auto) 0.1 K/mm3 (0.0-0.4); Eosinophils % (Auto) 0.6 % (0.0-4.3); Hematocrit 35.8 % (35.5-45.6); Lymphocytes # (Auto) 2.4 K/mm3 (1.2-5.4); Lymphocytes % (Auto) 23.5 % (13.4-35.0); Mean Corpuscular HGB Conc 34 % (32-34); Mean Corpuscular Volume 97 fl (84-94); Monocytes # (Auto) 0.9 K/mm3 (0.0-0.8); Monocytes % (Auto) 9.2 % (0.0-7.3); Platelet Count 142 K/mm3 (140-440); Red Blood Count 3.68 M/mm3 (3.65-5.03)
[2020-05-30 06:14] LABS: INR 1.16 (0.87-1.13)
[2020-05-30 06:38] LABS: BUN/Creatinine Ratio 36; Blood Urea Nitrogen 32 mg/dL (9-20); Calcium 8.8 mg/dL (8.4-10.2); Hemolysis Index 3
[2020-05-30] MEDS ORDERED: CITALOPRAM 20 MG TAB PO SCH (10:00)
[2020-05-30] MEDS ORDERED: NON-FORMULARY EACH (Atorvastatin Calcium [Lipitor] 80 MG Tablet) PO SCH (10:00)
[2020-05-30] MEDS: FOLIC ACID 1 MG TAB PO SCH (10:28)
[2020-05-30] MEDS: ESCITALOPRAM 10 MG TAB PO SCH (10:28)
[2020-05-30] MEDS: MULTIVITAMINS ,THERAPEUTIC TAB PO SCH (10:28)
[2020-05-30] MEDS: ASPIRIN 325 MG TAB PO SCH (10:28)
[2020-05-30] MEDS: THIAMINE 100 MG TAB PO SCH (10:28)
[2020-05-30] MEDS: MORPHINE 2 MG/1 ML INJ IV PRN (12:15)
[2020-05-30] MEDS: levETIRAcetam 500 MG in DEXTROSE 5% IN WATER 100 ML IV SCH ×2 (12:22→22:07)
--- NOTE | 2020-05-30 16:52 | Progress Note ---
Assessment and Plan Assessment and Plan - Patient Problems (1) Acute delirium Current Visit: Yes Status: Acute Plan to address problem: Patient alert but stating in to space Stiff Appears catatonic (2) Dehydration Current Visit: Yes Status: Acute Plan to address problem: Patient placed on IV fluid. We will monitor chemistry. (3) History of seizure Current Visit: No Status: Acute Plan to address problem: Keppra resumed (4) Hypokalemia Supplemented (5) Full code status Current Visit: Yes Status: Acute Plan to address problem: Patient is full code. DVT prophylaxis on heparin and GI prophylaxis Patient in restraints Subjective Date of service: 05/30/20 Principal diagnosis: Acute encephalopathy Interval history: 50-year-old male with known history of acute on chronic metabolic encephalopathy, depression, speech impairment, seizure disorder, PTSD was brought to the emergency room today with altered mental status. Patient is a resident of senior living [facility]. Nursing staff at the facility were concerned that patient may have had a seizure. He was given IM Ativan prior to arrival in the emergency room. Records indicates the patient was admitted last month and was diagnosed with acute on chronic metabolic encephalopathy and also PTSD. Patient is a poor historian, most of the history was gotten from the ER physician. Patient is said to be on multiple medications at the skilled facility. Work-up in the emergency room today reveals elevated BUN/creatinine ratio. Patient is being admitted with altered mental status with possible dehydration. 05/30/20 Patient is alert but not oriented Just staring at me In restraints Staring into space Objective - Constitutional Vitals: Vital Signs - 12hr 05/30/20 05/30/20 05/30/20 06:17 10:29 10:42 Temperature 97.8 F Pulse Rate 70 Respiratory 21 Rate Blood Pressure 157/87 O2 Sat by Pulse 96 Oximetry 05/30/20 11:00 Temperature Pulse Rate 62 Respiratory Rate Blood Pressure O2 Sat by Pulse Oximetry General appearance: Present: no acute distress, well-nourished - EENT Eyes: PERRL, EOM intact ENT: hearing intact, clear oral mucosa Ears: bilateral: normal - Neck Neck: supple, normal ROM - Respiratory Respiratory effort: normal Respiratory: bilateral: CTA - Breasts Breasts: normal - Cardiovascular Heart rate: 78 Rhythm: regular Heart Sounds: Present: S1 & S2. Absent: gallop, rub Extremities: pulses intact, No edema, normal color, Full ROM - Gastrointestinal General gastrointestinal: Present: soft, non-tender, non-distended, normal bowel sounds - Genitourinary Male genitourinary: normal - Integumentary Integumentary: clear, warm, dry - Musculoskeletal Musculoskeletal: 1, strength equal bilaterally - Neurologic Neurologic: moves all extremities - Psychiatric Psychiatric: other (Flat affect) - Allied health notes Allied health notes reviewed: nursing, case management - Labs CBC & Chem 7: 05/30/20 04:50 05/30/20 04:50 Labs: Abnormal lab results 05/29/20 05/29/20 05/30/20 Range/Units 18:13 18:13 04:50 MCV 97 H 97 H (84-94) fl MCH 33 H 33 H (28-32) pg RDW 12.9 L 13.0 L (13.2-15.2) % [place] % (Auto) 9.1 H 9.2 H (0.0-7.3) % [place] # (Auto) 0.9 H 0.9 H (0.0-0.8) K/mm3 INR (0.87-1.13) Sodium (137-145) mmol/L Potassium 3.4 L (3.6-5.0) mmol/L Chloride (98-107) mmol/L BUN 34 H (9-20) mg/dL Glucose 107 H (75-100) mg/dL 05/30/20 05/30/20 Range/Units 04:50 04:50 MCV (84-94) fl MCH (28-32) pg RDW (13.2-15.2) % [place] % (Auto) (0.0-7.3) % [place] # (Auto) (0.0-0.8) K/mm3 INR 1.16 H (0.87-1.13) Sodium 146 H (137-145) mmol/L Potassium 3.0 L (3.6-5.0) mmol/L Chloride 110.1 H (98-107) mmol/L BUN 32 H (9-20) mg/dL Glucose (75-100) mg/dL
[2020-05-30] MEDS: MIRTAZAPINE 15 MG TAB PO SCH (21:59)
[2020-05-31] MEDS: SODIUM CHLORIDE 0.9% 1000 ML 1,000 ML IV SCH ×3 (06:00→21:58)
[2020-05-31] MEDS: MULTIVITAMINS ,THERAPEUTIC TAB PO SCH (09:43)
[2020-05-31] MEDS: ESCITALOPRAM 10 MG TAB PO SCH (09:43)
[2020-05-31] MEDS: FOLIC ACID 1 MG TAB PO SCH (09:43)
[2020-05-31] MEDS: THIAMINE 100 MG TAB PO SCH (09:44)
[2020-05-31] MEDS: ASPIRIN 325 MG TAB PO SCH (09:44)
[2020-05-31] MEDS: levETIRAcetam 500 MG in DEXTROSE 5% IN WATER 100 ML IV SCH ×2 (09:48→21:30)
[2020-05-31] MEDS: MORPHINE 2 MG/1 ML INJ IV PRN ×2 (10:59→15:55)
[2020-05-31] MEDS ORDERED: NON-FORMULARY EACH (Lisinopril/Hydrochlorothiazide [Zestoretic 10-12.5 Mg Tablet] 1 EACH T PO SCH (12:45)
--- NOTE | 2020-05-31 12:47 | Progress Note ---
Assessment and Plan Assessment and Plan - Patient Problems (1) Acute delirium Current Visit: Yes Status: Acute Plan to address problem: Patient alert but stating in to space Stiff Appears catatonic Psychiatric and mental health consult requested (2) Dehydration Current Visit: Yes Status: Acute Plan to address problem: Continue IV fluids (3) History of seizure Current Visit: No Status: Acute Plan to address problem: Keppra resumed (4) Hypokalemia Supplemented (5) Full code status Current Visit: Yes Status: Acute Plan to address problem: Patient is full code. 6) catatonic state We will defer to psychiatry if they agree with the catatonic state DVT prophylaxis on heparin and GI prophylaxis Patient in restraints Subjective Date of service: 05/31/20 Principal diagnosis: Acute encephalopathy Interval history: 50-year-old male with known history of acute on chronic metabolic encephalopathy, depression, speech impairment, seizure disorder, PTSD was brought to the emergency room today with altered mental status. Patient is a resident of [facility]. Nursing staff at the facility were concerned that patient may have had a seizure. He was given IM Ativan prior to arrival in the emergency room. Records indicates the patient was admitted last month and was diagnosed with acute on chronic metabolic encephalopathy and also PTSD. Patient is a poor historian, most of the history was gotten from the ER physician. Patient is said to be on multiple medications at the skilled facility. Work-up in the emergency room today reveals elevated BUN/creatinine ratio. Patient is being admitted with altered mental status with possible dehydration. 05/30/20 Patient is alert but not oriented Just staring at me In restraints Staring into space 05/31/2020 Patient is alert but not oriented Just staring at me In restraints Staring into space Objective - Constitutional Vitals: Vital Signs - 12hr 05/31/20 05/31/20 05/31/20 04:30 07:59 11:47 Temperature 98.8 F 98.4 F 98.9 F Pulse Rate 82 66 Respiratory 18 18 20 Rate Blood Pressure 152/89 129/80 140/86 O2 Sat by Pulse 100 97 Oximetry 05/31/20 11:49 Temperature Pulse Rate 72 Respiratory Rate Blood Pressure O2 Sat by Pulse 97 Oximetry General appearance: Present: no acute distress, well-nourished - EENT Eyes: PERRL, EOM intact ENT: hearing intact, clear oral mucosa Ears: bilateral: normal - Neck Neck: supple, normal ROM - Respiratory Respiratory effort: normal Respiratory: bilateral: CTA - Breasts Breasts: normal - Cardiovascular Heart rate: 78 Rhythm: regular Heart Sounds: Present: S1 & S2. Absent: gallop, rub Extremities: pulses intact, No edema, normal color, Full ROM - Gastrointestinal General gastrointestinal: Present: soft, non-tender, non-distended, normal bowel sounds - Genitourinary Male genitourinary: normal - Integumentary Integumentary: clear, warm, dry - Musculoskeletal Musculoskeletal: 1, strength equal bilaterally - Neurologic Neurologic: moves all extremities - Psychiatric Psychiatric: memory intact, appropriate mood/affect, intact judgment & insight - Labs CBC & Chem 7: 05/30/20 04:50 05/30/20 04:50
[2020-05-31] MEDS ORDERED: CITALOPRAM 10 MG TAB PO SCH (13:00)
[2020-05-31] MEDS ORDERED: levETIRAcetam 500 MG TAB PO SCH (13:00)
[2020-05-31] MEDS ORDERED: POTASSIUM CHLORIDE ER 20 MEQ TAB PO ONE (13:00)
[2020-05-31] MEDS ORDERED: ASPIRIN EC 81 MG TAB PO SCH (13:00)
[2020-05-31] MEDS: LISINOPRIL 10 MG TAB PO SCH (14:06)
[2020-05-31] MEDS: hydroCHLOROthiazide 12.5 MG CAP PO SCH (14:06)
[2020-05-31] MEDS: POTASSIUM CHLORIDE 10 MEQ 10 MEQ/100 ML BAG IV SCH ×4 (14:18→17:47)
[2020-05-31] MEDS: HALOPERIDOL 1 MG TAB PO SCH ×3 (14:30→22:40)
[2020-05-31] MEDS: MIRTAZAPINE 15 MG TAB PO SCH ×2 (21:30→22:40)
[2020-05-31] MEDS: LORazepam 2 MG/ML VIAL IV PRN (21:48)
[2020-06-01] MEDS: SODIUM CHLORIDE 0.9% 1000 ML 1,000 ML IV SCH ×3 (05:44→21:48)
[2020-06-01 06:22] LABS: Basophils # (Auto) 0.1 K/mm3 (0.0-0.1); Basophils % (Auto) 0.6 % (0.0-1.8); Eosinophils # (Auto) 0.1 K/mm3 (0.0-0.4); Eosinophils % (Auto) 0.5 % (0.0-4.3); Hematocrit 32.1 % (35.5-45.6); Hemoglobin 10.9 gm/dl (11.8-15.2); Lymphocytes # (Auto) 2.2 K/mm3 (1.2-5.4); Lymphocytes % (Auto) 19.4 % (13.4-35.0); Mean Corpuscular HGB Conc 34 % (32-34); Mean Corpuscular Volume 97 fl (84-94); Monocytes # (Auto) 0.8 K/mm3 (0.0-0.8); Monocytes % (Auto) 7.2 % (0.0-7.3); Platelet Count 131 K/mm3 (140-440); Red Blood Count 3.31 M/mm3 (3.65-5.03); Red Cell Distribution Width 13.1 % (13.2-15.2)
[2020-06-01 06:47] LABS: Alanine Aminotransferase 15 units/L (7-56); Albumin 3.3 g/dL (3.9-5); Blood Urea Nitrogen 15 mg/dL (9-20); Calcium 8.6 mg/dL (8.4-10.2); Hemolysis Index 4
[2020-06-01 06:48] LABS: BUN/Creatinine Ratio 21
[2020-06-01] MEDS: levETIRAcetam 500 MG in DEXTROSE 5% IN WATER 100 ML IV SCH ×2 (09:43→21:51)
--- NOTE | 2020-06-01 09:57 | Consultation ---
History of Present Illness - Reason for Consult Consult date: 06/01/20 Reason for consult: MHE Requesting physician: KEN FUNEZ - Chief Complaint Chief complaint: Altered Mental Status - History of Present Psychiatric Illness Per ED Provider: This is a 50-year-old male with history of acute on chronic metabolic encephalopathy, depression, seizure, speech impairment, CVA, ps ychosis, PTSD who was found altered on the ground. Patient is a resident of long-term facility [facility]. Patient was found unresponsive. Nursing staff concerning patient had a seizure. He received 2 mg IM of Ativan prior to arrival. Patient is currently unresponsive. He is lethargic. He appears sedated. Patient was admitted last month. He was diagnosed with acute on chronic metabolic encephalopathy possible PTSD. who is POA gave further history. She came to the emergency department to check on her . Since he was discharged from the hospital 2 weeks ago to rehab debilitation program at [facility], patient has had decline. She suspects haloperidol has caused him to be sedated and altered. Patient is able to ambulate with assistance. He does have expressive aphasia. However he does recognize her. After 1 week at the long-term facility, patient was confused and combative. He had disorganized speech. He became more more lethargic. Yesterday she had a long-term facility to stop Haldol. PSYCH HPI Patient is a 50 year old male admitted to hospital for worsening health with subsequent psychiatric assessment placed to rule out catatonia. Patient in room, flat affect, awake but no response to verbal stimuli. When tapped, ptt responds, raises his head but looks other, even though im talking, does nto appear to respond to verbal stimuli. Patient would respond everytime i tap his foot. PAST PSYCHIATRIC HISTORY Diagnoses:n/a Suicide attempts or Self-harm behavior: n/a Prior psychiatric hospitalizations: n/a Substance Abuse history:n/a Previous psychiatric medications tried: n/a Outpatient treatment: n/a PAST MEDICAL HISTORY: n/a Family Psychiatric History: None reported or documented SOCIAL HISTORY Marital Status: n/a Living Arrangements: n/a Employment Status: n/a Access to guns/weapons: n/a Education: n/a History of Abuse: n/a Legal History: n/a REVIEW OF SYSTEMS ROS cannot be reliably obtained from the patient due to his confusion and somnolence MENTAL STATUS EXAMINATION General Appearance and Behavior: Age appropriate, good hygiene, wearing appropriate clothes, good eye contact, uncooperative with questioning. Cooperation: Withdrawn Psychomotor Behavior: unremarkable and within normal limits Mood: Neutral Affect and affective range: Flat Thought Process:N/A Thought Content: N/A Speech: no speech production Intellectual Functioning: N/A Suicidal Ideation: N/A l Homicidal Ideation: N/A Impulse Control: Impaired Insight and Judgment: Impaired Memory: N/A Attention: Normal, Orientation: Alert Diagnoses: Treatment Plan AT this time, pt is not catatonic, when tapped, patient raise legs and head, wakes up but unable to keep gaze on me. No acute psych benefit at this time, will defer to primary team and recommend neurology evaluation. MEDICATIONS: Risks, benefits and alternatives of medications discussed with the patient, questions answered and consent obtained from patient. PSYCHOTHERAPY: Supportive psychotherapy provided MEDICAL: Per primary team DELIRIUM PRECAUTIONS: Please re-orient patient frequently, keep lights on during the day, and minimize benzodiazepines and opiates as these medications could worsen patient's confusion. GRID MOLDER: DISPOSITION: Do Not Recommend acute inpatient psychiatric hospitalization at this time. Case discussed with Dr. Arguelles who agrees with current disposition LEGAL STATUS: FOLLOW-UP: Will sign off Thank you for the consult. Please contact with any questions and/or concerns. Medications and Allergies Allergies Allergy/AdvReac Type Severity Reaction Status Date / Time No Known Allergies Allergy Unverified 05/07/20 00:16 Home Medications Medication Instructions Recorded Confirmed Last Taken Type Aspirin [Adult Aspirin] 81 mg PO QDAY 05/07/20 05/07/20 Unknown History Atorvastatin Calcium [Lipitor] 80 mg PO QDAY 05/07/20 05/07/20 Unknown History Escitalopram [Lexapro] 10 mg PO DAILY 05/07/20 05/07/20 Unknown History Lisinopril/Hydrochlorothiazide 1 each PO QDAY 05/07/20 05/07/20 Unknown History [Zestoretic 10-12.5 mg Tablet] levETIRAcetam [Keppra TAB] 750 mg PO BID 05/07/20 05/07/20 Unknown History Citalopram [celeXA] 10 mg PO DAILY 05/09/20 05/09/20 Unknown History Aspirin 325 mg PO QDAY #30 tablet 05/14/20 Unknown Rx AtorvaSTATin [Lipitor] 40 mg PO QHS #30 tablet 05/14/20 Unknown Rx Citalopram [Celexa] 20 mg PO QDAY #30 tablet 05/14/20 Unknown Rx Folic Acid [Folvite] 1 mg PO QDAY #30 tablet 05/14/20 Unknown Rx Mirtazapine [Remeron 15mg TAB] 7.5 mg PO QHS #30 tablet 05/14/20 Unknown Rx Multivitamin Tab [Multiple Vitamin 1 each PO QDAY #30 tablet 05/14/20 Unknown Rx TAB (Theragran)] Thiamine [Vitamin B-1] 100 mg PO QDAY #30 tablet 05/14/20 Unknown Rx haloperidoL [Haldol] 1 mg PO BID #30 tablet 05/14/20 Unknown Rx levETIRAcetam [Keppra TAB] 1,000 mg PO BID #60 tablet 05/14/20 Unknown Rx Active Meds: Active Medications Acetaminophen (Acetaminophen 325 Mg Tab) 650 mg PO Q4H PRN PRN Reason: Pain MILD(1-3)/Fever >100.5/[place] Last Admin: 05/31/20 09:44 Dose: 650 mg Documented by: Aspirin (Aspirin 325 Mg Tab) 325 mg PO QDAY [facility] Last Admin: 05/31/20 09:44 Dose: 325 mg Documented by: Atorvastatin Calcium (Atorvastatin 40 Mg Tab) 40 mg PO QHS [facility] Last Admin: 05/31/20 22:40 Dose: Not Given Documented by: Escitalopram Oxalate (Escitalopram 10 Mg Tab) 10 mg PO DAILY [facility] Last Admin: 05/31/20 09:43 Dose: 10 mg Documented by: Folic Acid (Folic Acid 1 Mg Tab) 1 mg PO QDAY [facility] Last Admin: 05/31/20 09:43 Dose: 1 mg Documented by: Haloperidol (Haloperidol 1 Mg Tab) 1 mg PO BID [facility] Last Admin: 05/31/20 22:40 Dose: Not Given Documented by: Hydrochlorothiazide (Hydrochlorothiazide 12.5 Mg Cap) 12.5 mg PO QDAY [facility] Last Admin: 05/31/20 14:06 Dose: 12.5 mg Documented by: Sodium Chloride (Nacl 0.9% 1000 Ml) 1,000 mls @ 125 mls/hr IV DIRECT [facility] Last Admin: 06/01/20 05:44 Dose: 125 mls/hr Documented by: Levetiracetam 500 mg/ Dextrose 105 mls @ 400 mls/hr IV Q12HR [facility] Last Admin: 06/01/20 09:43 Dose: 400 mls/hr Documented by: Lisinopril (Lisinopril 10 Mg Tab) 10 mg PO QDAY [facility] Last Admin: 05/31/20 14:06 Dose: 10 mg Documented by: Lorazepam (Lorazepam 2 Mg/Ml Vial) 1 mg IV Q4H PRN PRN Reason: Seizures Last Admin: 05/31/20 21:48 Dose: 1 mg Documented by: Lorazepam (Lorazepam 2 Mg/Ml Vial) 1 mg IV Q4H PRN PRN Reason: Agitation Magnesium Hydroxide (Magnesium Hydroxide (Mom) Oral Liqd Udc) 30 ml PO Q4H PRN PRN Reason: Constipation Mirtazapine (Mirtazapine 15 Mg Tab) 7.5 mg PO QHS [facility] Last Admin: 05/31/20 22:40 Dose: Not Given Documented by: Morphine Sulfate (Morphine 2 Mg/1 Ml Inj) 2 mg IV Q4H PRN PRN Reason: Pain, Moderate (4-6) Last Admin: 05/31/20 15:55 Dose: 2 mg Documented by: Multivitamins (Multivitamins ,Therapeutic Tab) 1 each PO QDAY [facility] Last Admin: 05/31/20 09:43 Dose: 1 each Documented by: Ondansetron HCl (Ondansetron 4 Mg/2 Ml Inj) 4 mg IV Q8H PRN PRN Reason: Nausea And Vomiting Sodium Chloride (Sodium Chloride 0.9% 10 Ml Flush Syringe) 10 ml IV BID [facility] Last Admin: 06/01/20 09:44 Dose: 10 ml Documented by: Sodium Chloride (Sodium Chloride 0.9% 10 Ml Flush Syringe) 10 ml IV PRN PRN PRN Reason: LINE FLUSH Last Admin: 05/31/20 15:56 Dose: 10 ml Documented by: Thiamine HCl (Thiamine 100 Mg Tab) 100 mg PO QDAY [facility] Last Admin: 05/31/20 09:44 Dose: 100 mg Documented by: Mental Status Exam - Vital signs Last Vital Signs Temp 97.8 F 06/01/20 08:00 Pulse 82 06/01/20 08:00 Resp 20 06/01/20 08:00 BP 120/75 06/01/20 08:00 Pulse Ox 100 06/01/20 08:00 Results Result Diagrams: 06/01/20 05:33 06/01/20 05:33 Abnormal lab results 06/01/20 06/01/20 Range/Units 05:33 05:33 WBC 11.4 H (4.5-11.0) K/mm3 RBC 3.31 L (3.65-5.03) M/mm3 Hgb 10.9 L (11.8-15.2) gm/dl Hct 32.1 L (35.5-45.6) % MCV 97 H (84-94) fl MCH 33 H (28-32) pg RDW 13.1 L (13.2-15.2) % Plt Count 131 L (140-440) K/mm3 Seg Neutrophils % 72.3 H (40.0-70.0) % Seg Neutrophils # 8.2 H (1.8-7.7) K/mm3 Potassium 3.5 L (3.6-5.0) mmol/L Chloride 109.8 H (98-107) mmol/L Creatinine 0.7 L (0.8-1.3) mg/dL Total Protein 5.5 L D (6.3-8.2) g/dL Albumin 3.3 L (3.9-5) g/dL All other labs normal.
[2020-06-01] MEDS: FOLIC ACID 1 MG TAB PO SCH (10:40)
[2020-06-01] MEDS: LISINOPRIL 10 MG TAB PO SCH (10:41)
[2020-06-01] MEDS: hydroCHLOROthiazide 12.5 MG CAP PO SCH (10:41)
[2020-06-01] MEDS: THIAMINE 100 MG TAB PO SCH (10:41)
[2020-06-01] MEDS: ASPIRIN 325 MG TAB PO SCH (10:41)
[2020-06-01] MEDS: MULTIVITAMINS ,THERAPEUTIC TAB PO SCH (10:41)
[2020-06-01] MEDS: ESCITALOPRAM 10 MG TAB PO SCH (10:41)
[2020-06-01] MEDS: HALOPERIDOL 1 MG TAB PO SCH ×2 (10:41→21:51)
--- NOTE | 2020-06-01 15:47 | Progress Note ---
Assessment and Plan Assessment and Plan - Patient Problems (1) Acute delirium Current Visit: Yes Status: Acute Plan to address problem: Patient alert but stating in to space Stiff Appears catatonic Psychiatric and mental health consult requested (2) Acute metabolic encephalopathy Current Visit: Yes Status: Acute Plan to address problem: Continue IV fluids Hx of CVA at [facility] with rt sided weakness as per (3) History of seizure Current Visit: No Status: Acute Plan to address problem: Keppra resumed (4) Hypokalemia Supplemented (5) Full code status Current Visit: Yes Status: Acute Plan to address problem: Patient is full code. 6) catatonic state We will defer to psychiatry if they agree with the catatonic state DVT prophylaxis on heparin and GI prophylaxis Patient in restraints Subjective Date of service: 06/01/20 Principal diagnosis: Acute encephalopathy Interval history: 50-year-old male with known history of acute on chronic metabolic encephalopathy, depression, speech impairment, seizure disorder, PTSD was brought to the emergency room today with altered mental status. Patient is a resident of [facility]. Nursing staff at the facility were concerned that patient may have had a seizure. He was given IM Ativan prior to arrival in the emergency room. Records indicates the patient was admitted last month and was diagnosed with acute on chronic metabolic encephalopathy and also PTSD. Patient is a poor historian, most of the history was gotten from the ER physician. Patient is said to be on multiple medications at the skilled facility. Work-up in the emergency room today reveals elevated BUN/creatinine ratio. Patient is being admitted with altered mental status with possible dehydration. 05/30/20 Patient is alert but not oriented Just staring at me In restraints Staring into space 05/31/2020 Patient is alert but not oriented Just staring at me In restraints Staring into space 06/01 Same condition ALert but not oriented Staring into space Objective - Constitutional Vitals: Vital Signs - 12hr 06/01/20 06/01/20 06/01/20 04:05 08:00 10:41 Temperature 97.8 F 97.8 F Pulse Rate 84 82 Respiratory 20 20 Rate Blood Pressure 128/71 120/75 120/70 O2 Sat by Pulse 99 100 Oximetry 06/01/20 06/01/20 06/01/20 11:37 12:19 13:00 Temperature 97.5 F L Pulse Rate 95 H 83 Respiratory 18 18 Rate Blood Pressure 141/85 O2 Sat by Pulse 96 100 Oximetry General appearance: Present: no acute distress, well-nourished - EENT Eyes: PERRL, EOM intact ENT: hearing intact, clear oral mucosa Ears: bilateral: normal - Neck Neck: supple, normal ROM - Respiratory Respiratory effort: normal Respiratory: bilateral: CTA - Breasts Breasts: normal - Cardiovascular Heart rate: 78 Rhythm: regular Heart Sounds: Present: S1 & S2. Absent: gallop, rub Extremities: pulses intact, No edema, normal color, Full ROM - Gastrointestinal General gastrointestinal: Present: soft, non-tender, non-distended, normal bowel sounds - Genitourinary Male genitourinary: normal - Integumentary Integumentary: clear, warm, dry - Musculoskeletal Musculoskeletal: right sided weakness, generalized weakness - Neurologic Neurologic: moves all extremities - Psychiatric Psychiatric: other (Alert but aphasic) - Labs CBC & Chem 7: 06/01/20 05:33 06/01/20 05:33 Labs: Abnormal lab results 06/01/20 06/01/20 Range/Units 05:33 05:33 WBC 11.4 H (4.5-11.0) K/mm3 RBC 3.31 L (3.65-5.03) M/mm3 Hgb 10.9 L (11.8-15.2) gm/dl Hct 32.1 L (35.5-45.6) % MCV 97 H (84-94) fl MCH 33 H (28-32) pg RDW 13.1 L (13.2-15.2) % Plt Count 131 L (140-440) K/mm3 Seg Neutrophils % 72.3 H (40.0-70.0) % Seg Neutrophils # 8.2 H (1.8-7.7) K/mm3 Potassium 3.5 L (3.6-5.0) mmol/L Chloride 109.8 H (98-107) mmol/L Creatinine 0.7 L (0.8-1.3) mg/dL Total Protein 5.5 L D (6.3-8.2) g/dL Albumin 3.3 L (3.9-5) g/dL
[2020-06-01] MEDS: MIRTAZAPINE 15 MG TAB PO SCH (21:51)
[2020-06-01] MEDS: LORazepam 2 MG/ML VIAL IV PRN (22:04)
[2020-06-02] MEDS: SODIUM CHLORIDE 0.9% 1000 ML 1,000 ML IV SCH (06:43)
[2020-06-02] MEDS: levETIRAcetam 500 MG in DEXTROSE 5% IN WATER 100 ML IV SCH ×2 (09:33→21:31)
[2020-06-02] MEDS: hydroCHLOROthiazide 12.5 MG CAP PO SCH (09:34)
[2020-06-02] MEDS: HALOPERIDOL 1 MG TAB PO SCH ×2 (09:35→22:36)
[2020-06-02] MEDS: THIAMINE 100 MG TAB PO SCH (09:35)
[2020-06-02] MEDS: FOLIC ACID 1 MG TAB PO SCH (09:35)
[2020-06-02] MEDS: LISINOPRIL 10 MG TAB PO SCH (09:35)
[2020-06-02] MEDS: ESCITALOPRAM 10 MG TAB PO SCH (09:35)
[2020-06-02] MEDS: ASPIRIN 325 MG TAB PO SCH (09:35)
[2020-06-02] MEDS: MULTIVITAMINS ,THERAPEUTIC TAB PO SCH (09:35)
--- NOTE | 2020-06-02 11:19 | Progress Note ---
Assessment and Plan Assessment and Plan - Patient Problems (1) Acute delirium Current Visit: Yes Status: Acute Plan to address problem: Patient alert but stating in to space Per Psychiatry --No catatonic state (2) Dehydration Current Visit: Yes Status: Acute Plan to address problem: Continue IV fluids (3) History of seizure Current Visit: No Status: Acute Plan to address problem: Keppra resumed (4) Hypokalemia Supplemented (5) Acute Encephalopathy Etio unclear EEG /MRI requested Current Visit: Yes Status: Acute Plan to address problem: Patient is full code. DVT prophylaxis on heparin and GI prophylaxis Patient in restraints Subjective Date of service: 06/02/20 Principal diagnosis: Acute encephalopathy Interval history: 50-year-old male with known history of acute on chronic metabolic encephalopathy, depression, speech impairment, seizure disorder, PTSD was brought to the emergency room today with altered mental status. Patient is a resident of [facility]. Nursing staff at the facility were concerned that patient may have had a seizure. He was given IM Ativan prior to arrival in the emergency room. Records indicates the patient was admitted last month and was diagnosed with acute on chronic metabolic encephalopathy and also PTSD. Patient is a poor historian, most of the history was gotten from the ER physician. Patient is said to be on multiple medications at the skilled facility. Work-up in the emergency room today reveals elevated BUN/creatinine ratio. Patient is being admitted with altered mental status with possible dehydration. 05/30/20 Patient is alert but not oriented Just staring at me In restraints Staring into space 05/31/2020 Patient is alert but not oriented Just staring at me In restraints Staring into space 06/01 Same condition ALert but not oriented Staring into space Addendum I took extensive history from the and reviewed the previous admission from May 07 to the discharge time which was approximately May 14, 2020. Patient was apparently walking and dragging his right lower extremity. Not using walker. But patient has been having persistent expressive aphasia. Able to do his ADLs ~admission May 06 on May 14 patient was transferred to [facility] for rehab. MRI was negative for any acute subacute stroke. Patient was labeled as TIA when he was discharged from [facility] but as per patient was having right-sided deficits which are more consistent with cer ebrovascular accident but the imaging studies are not showing any infarct. Patient has seizures off and on and is on antiepileptics. Depakote was recommended but not carried through. Will defer to neurology and psychiatry. If cleared by psychiatry and neurology will transfer back to [facility] with a regular follow-up with neurology and psychiatry as outpatient. Patient is otherwise stable except for a low potassium which is being supplemented. 06/02 As per psych--no catatonia Neuro consult appreciated Ordered MRI agai Recommended EEG Objective - Constitutional Vitals: Vital Signs - 12hr 06/01/20 06/02/20 06/02/20 23:30 03:24 05:00 Temperature 98.3 F 98.5 F Pulse Rate 88 89 89 Respiratory 14 17 Rate Blood Pressure 150/97 165/105 O2 Sat by Pulse 99 99 Oximetry 06/02/20 08:12 Temperature 98.7 F Pulse Rate 79 Respiratory 18 Rate Blood Pressure 135/91 O2 Sat by Pulse 100 Oximetry General appearance: Present: no acute distress, well-nourished - EENT Eyes: PERRL, EOM intact ENT: hearing intact, clear oral mucosa Ears: bilateral: normal - Neck Neck: supple, normal ROM - Respiratory Respiratory effort: normal Respiratory: bilateral: CTA - Breasts Breasts: normal - Cardiovascular Heart rate: 78 Rhythm: regular Heart Sounds: Present: S1 & S2. Absent: gallop, rub Extremities: pulses intact, No edema, normal color, Full ROM - Gastrointestinal General gastrointestinal: Present: soft, non-tender, non-distended, normal bowel sounds - Genitourinary Male genitourinary: normal - Integumentary Integumentary: clear, warm, dry - Musculoskeletal Musculoskeletal: 1, strength equal bilaterally - Neurologic Neurologic: focal deficits (Could not be tested Expressive aphasia) - Psychiatric Psychiatric: other (Aphasic) - Allied health notes Allied health notes reviewed: nursing, case management - Labs CBC & Chem 7: 06/01/20 05:33 06/01/20 05:33
--- NOTE | 2020-06-02 13:44 | Consultation ---
History of Present Illness - Reason for Consult Consult date: 06/02/20 Evaluate for Acute IRU Requesting physician: KEN FUNEZ - History of Present Illness We were asked to consult on this 50-year-old gentleman who presented to the ER with altered mental status. Patient was previously here in late April and those records were also reviewed. At that time a CVA work-up was completed and MRI of the brain did not show any signs of a CVA and only showed minimal white matter disease. Patient does have a seizure disorder and is being treated with Keppra. Apparently after his last encounter at our hospital he was discharged to a [facility] facility and per reports from the patient's it appears he was being given Haldol at the outside facility. Prior to his readmission to us it appears that he was found unresponsive. Currently the patient is still in restraints and is noncommunicative and he does not follow any commands during examination. Nursing states that patient has been refusing to eat even when they attempt to feed him he closes his lips. He has been noncommunicative with them. Does not show any signs of pain. When they attempted to bathe him he pulls away and then starts laughing uncontrollably. Is having a hard time taking medications even when they crush them. Patient remains in restraints for his own safety. Has urine output via condom cath. No recent bowel movements, nausea or vomiting. We were asked to evaluate the patient for possible admission to acute inpatient rehabilitation and based on his current condition he would not be an appropriate candidate and may be more appropriate to return to [facility] or other type of facility. If his condition improves to where he is out of restraints and following commands we could reevaluate the patient further for participation in an acute inpatient rehabilitation program. We would need to have him evaluated by therapy which has already been ordered to see if he is able to participate at the level that is required. Information gathered from examination of patient, speaking with the nurse and physician caring for the patient and the medical record as the patient is not communicative. Past History Past Medical History: hypertension, seizures Past Surgical History: No surgical history Social history: lives with family (Most recently in [facility] facility), smoking Family history: other (Unobtainable due to patient condition) Medications and Allergies Allergies Allergy/AdvReac Type Severity Reaction Status Date / Time No Known Allergies Allergy Unverified 05/07/20 00:16 Home Medications Medication Instructions Recorded Confirmed Last Taken Type Aspirin [Adult Aspirin] 81 mg PO QDAY 05/07/20 05/07/20 Unknown History Atorvastatin Calcium [Lipitor] 80 mg PO QDAY 05/07/20 05/07/20 Unknown History Escitalopram [Lexapro] 10 mg PO DAILY 05/07/20 05/07/20 Unknown History Lisinopril/Hydrochlorothiazide 1 each PO QDAY 05/07/20 05/07/20 Unknown History [Zestoretic 10-12.5 mg Tablet] levETIRAcetam [Keppra TAB] 750 mg PO BID 05/07/20 05/07/20 Unknown History Citalopram [celeXA] 10 mg PO DAILY 05/09/20 05/09/20 Unknown History Aspirin 325 mg PO QDAY #30 tablet 05/14/20 Unknown Rx AtorvaSTATin [Lipitor] 40 mg PO QHS #30 tablet 05/14/20 Unknown Rx Citalopram [Celexa] 20 mg PO QDAY #30 tablet 05/14/20 Unknown Rx Folic Acid [Folvite] 1 mg PO QDAY #30 tablet 05/14/20 Unknown Rx Mirtazapine [Remeron 15mg TAB] 7.5 mg PO QHS #30 tablet 05/14/20 Unknown Rx Multivitamin Tab [Multiple Vitamin 1 each PO QDAY #30 tablet 05/14/20 Unknown Rx TAB (Theragran)] Thiamine [Vitamin B-1] 100 mg PO QDAY #30 tablet 05/14/20 Unknown Rx haloperidoL [Haldol] 1 mg PO BID #30 tablet 05/14/20 Unknown Rx levETIRAcetam [Keppra TAB] 1,000 mg PO BID #60 tablet 05/14/20 Unknown Rx Active Meds: Active Medications Acetaminophen (Acetaminophen 325 Mg Tab) 650 mg PO Q4H PRN PRN Reason: Pain MILD(1-3)/Fever >100.5/[place] Last Admin: 05/31/20 09:44 Dose: 650 mg Documented by: Aspirin (Aspirin 325 Mg Tab) 325 mg PO QDAY [facility] Last Admin: 06/02/20 09:35 Dose: 325 mg Documented by: Atorvastatin Calcium (Atorvastatin 40 Mg Tab) 40 mg PO QHS [facility] [place] Last Admin: 06/01/20 21:51 Dose: 40 mg Documented by: Escitalopram Oxalate (Escitalopram 10 Mg Tab) 10 mg PO DAILY [facility] [place] Last Admin: 06/02/20 09:35 Dose: 10 mg Documented by: Folic Acid (Folic Acid 1 Mg Tab) 1 mg PO QDAY [facility] [place] Last Admin: 06/02/20 09:35 Dose: 1 mg Documented by: Haloperidol (Haloperidol 1 Mg Tab) 1 mg PO BID [facility] [place] Last Admin: 06/02/20 09:35 Dose: 1 mg Documented by: Hydrochlorothiazide (Hydrochlorothiazide 12.5 Mg Cap) 12.5 mg PO QDAY [facility] [place] Last Admin: 06/02/20 09:34 Dose: 12.5 mg Documented by: Sodium Chloride (Nacl 0.9% 1000 Ml) 1,000 mls @ 125 mls/hr IV DIRECT [facility] [place] Last Admin: 06/02/20 06:43 Dose: 125 mls/hr Documented by: Levetiracetam 500 mg/ Dextrose 105 mls @ 400 mls/hr IV Q12HR [facility] [place] Last Admin: 06/02/20 09:33 Dose: 400 mls/hr Documented by: Lisinopril (Lisinopril 10 Mg Tab) 10 mg PO QDAY [facility] [place] Last Admin: 06/02/20 09:35 Dose: 10 mg Documented by: Lorazepam (Lorazepam 2 Mg/Ml Vial) 1 mg IV Q4H PRN PRN Reason: Seizures Last Admin: 06/01/20 22:04 Dose: 1 mg Documented by: Lorazepam (Lorazepam 2 Mg/Ml Vial) 1 mg IV Q4H PRN PRN Reason: Agitation Magnesium Hydroxide (Magnesium Hydroxide (Mom) Oral Liqd Udc) 30 ml PO Q4H PRN PRN Reason: Constipation Mirtazapine (Mirtazapine 15 Mg Tab) 7.5 mg PO QHS [facility] [place] Last Admin: 06/01/20 21:51 Dose: 7.5 mg Documented by: Morphine Sulfate (Morphine 2 Mg/1 Ml Inj) 2 mg IV Q4H PRN PRN Reason: Pain, Moderate (4-6) Last Admin: 05/31/20 15:55 Dose: 2 mg Documented by: Multivitamins (Multivitamins ,Therapeutic Tab) 1 each PO QDAY [facility] [place] Last Admin: 06/02/20 09:35 Dose: 1 each Documented by: Ondansetron HCl (Ondansetron 4 Mg/2 Ml Inj) 4 mg IV Q8H PRN PRN Reason: Nausea And Vomiting Sodium Chloride (Sodium Chloride 0.9% 10 Ml Flush Syringe) 10 ml IV BID [facility] [place] Last Admin: 06/02/20 10:28 Dose: 10 ml Documented by: Sodium Chloride (Sodium Chloride 0.9% 10 Ml Flush Syringe) 10 ml IV PRN PRN PRN Reason: LINE FLUSH Last Admin: 05/31/20 15:56 Dose: 10 ml Documented by: Thiamine HCl (Thiamine 100 Mg Tab) 100 mg PO QDAY [facility] [place] Last Admin: 06/02/20 09:35 Dose: 100 mg Documented by: Review of Systems ROS unobtainable: due to mental status (10 systems reviewed with medical record, examination and nursing as per HPI and here) Constitutional: poor appetite Ears, nose, mouth and throat: no epistaxis, no neck lump Cardiovascular: no rapid/irregular heart beat, no edema Respiratory: no cough, no shortness of breath Gastrointestinal: no nausea, no vomiting Genitourinary Male: no hematuria Musculoskeletal: no redness of joints Integumentary: no rash, no pruritis Neurological: seizures, no tremors Psychiatric: confusion, other (Inappropriate laughing) Exam - Exam Narrative exam: MUSCULOSKELETAL SPECIALTY EXAM CONSTITUTIONAL: Well developed, well nourished, appropriately groomed, and restrain LYMPHATIC: No appreciable abnormalities palpable in neck RESPIRATORY: Clear to auscultation bilaterally, no increased work of breathing CARDIOVASCULAR: Regular Rate/ Rhythm, no swelling, edema or tenderness in BUE or BLE. All extremities warm. GI: + bowel sounds, soft, NTTP, nondistended. INTEGUMENTARY: Normal, no lesion, rash, masses or bruising noted in extremities. MUSCULOSKELETAL: BUE and BLE normal without defect, crepitus, subluxation, effusion, arthritic changes or TTP. Patient is able to move all extremities at least 3/5, but I was unable to test range of motion and tone due to decreased command following NEURO: Patient does respond to his name but will not look to find the source of the voice. Even when standing directly in his [id number], he everts his eyes and looks elsewhere. Sensation unable to fully be tested due to decreased interaction. Reflexes unable to be tested because the patient would contract muscles when attempting to test, decreased command following. Coordination unable to be tested due to decreased command following. No tremor noted in 4 extremities. POSTURE and GAIT: Balance and gait deferred until seen with therapy. PSYCH: Alert, confused, affect appears blunted. Insight appears impaired. - Constitutional Vitals: Vital Signs - 12hr 06/02/20 06/02/20 06/02/20 03:24 05:00 08:12 Temperature 98.5 F 98.7 F Pulse Rate 89 89 79 Respiratory 17 18 Rate Blood Pressure 165/105 135/91 O2 Sat by Pulse 99 100 Oximetry 06/02/20 11:00 Temperature Pulse Rate Respiratory Rate Blood Pressure O2 Sat by Pulse 98 Oximetry - Labs CBC & Chem 7: 06/01/20 05:33 06/01/20 05:33 Labs: Laboratory Results - last 72 hr 06/01/20 06/01/20 06/01/20 05:33 05:33 17:51 WBC 11.4 H RBC 3.31 L Hgb 10.9 L Hct 32.1 L MCV 97 H MCH 33 H MCHC 34 RDW 13.1 L Plt Count 131 L Lymph % (Auto) 19.4 [place] % (Auto) 7.2 Eos % (Auto) 0.5 Baso % (Auto) 0.6 Lymph # (Auto) 2.2 [place] # (Auto) 0.8 Eos # (Auto) 0.1 Baso # (Auto) 0.1 Seg Neutrophils % 72.3 H Seg Neutrophils # 8.2 H Sodium 143 Potassium 3.5 L Chloride 109.8 H Carbon Dioxide 25 Anion Gap 12 BUN 15 Creatinine 0.7 L Estimated GFR > 60 BUN/Creatinine Ratio 21 Glucose 91 POC Glucose 84 Calcium 8.6 Total Bilirubin 0.80 AST 30 ALT 15 Alkaline Phosphatase 64 Total Protein 5.5 L D Albumin 3.3 L Albumin/Globulin Ratio 1.5 Assessment and Plan Patient was assessed and evaluated for Acute Inpatient Rehab Unit. Metabolic encephalopathy versus seizure?: Uncertain if his current condition is a continuation of his prior episodes on his previous admission or if there is an additive insult. Could be related to medication, seizure disorder, or new CVA. Apparently the patient was on Haldol at the outside facility and per available notes the was requesting that he be withdrawn from these. Patient remains in restraints and is not responsive to voice. He does pull away when attempting to examine. Prior MRI brain did not show CVA that has been mentioned. Current CT head also shows no changes when compared to previous imaging. ADL dysfunction: OT will work on improving ability to perform ADLs (including assistive devices) to increase independence and decrease caregiver burden and improve functional transfers and mobility training. Difficulty walking: PT will work on gait training and proper use of assistive devices and advance as appropriate to use of stairs and outside ambulation on uneven surfaces. Unsteadiness on feet: PT will work on improving static and dynamic sitting and standing balance as well as proper use of assistive devices to decrease risk of falls. Muscle weakness: PT & OT will work on strengthening exercises to improve functional strength including mixture of closed and open kinetic chain exercises. Debility: PT & OT will work on improving overall functional status to improve participation with ADLs, mobility and social involvement. Fatigue: PT & OT will work on improving endurance through aerobic exercises and therapeutic activity while monitoring patients tolerance for activity and vital signs as needed. Pain: Continue physical modalities in therapy and pain medications as needed to achieve functional pain control. Sleep: Monitor and address as needed. Bowel: Monitor and address as needed. Appetite: Monitor and address as needed. Restrictions/ Precautions: Falls, seizure WB status: FWB Thank you very much for the opportunity to consult on this patient. At this time, the patient does not meet requirements to be included in an acute rehabilitation program as he is still not following commands and remains in restraints. If his medical condition changes and he is able to safely remain out of restraints and starts following commands and still has deficits that require further rehabilitation, please reconsult and will be happy to assess him at that time for participation in an acute rehab program. Therapy services have already been ordered for the patient by Dr. Funez and I will follow their progress with the patient. Recommendations: may discharge to [facility] facility when medically stable
--- NOTE | 2020-06-02 16:15 | Consultation ---
History of Present Illness Consult date: 06/02/20 Reason for Consult: AMS Chief complaint: AMS History of present illness: 50 yo male with recent stroke in 03/2020 with bilateral arm weakness with severe expressive aphasia, seizure d/o, acute on chronic metabolic encephalopathy, depression, PTSD, admitted to the hospitial for notable subacute encephalopathy which the (at bedside) initially attributed to the haldol that was being administered to him. However, after being off Haldol for all these days, the patient continues to not return to his baseline. Patient's baseline seizures tend to be subtle staring off episodes rather than the generalized seizures, according to his . She notes that his aphasia much more severe than his normal baseline, especially with the new receptive element to his presentation. Currently awaiting EEG. Past History Past Medical History: hypertension, seizures, stroke, other (ptsd, depression;) Past Surgical History: No surgical history Social history: lives with family (Most recently in pen[facility] facility), smoking Family history: other (Unobtainable due to patient condition) Medications and Allergies Allergies Allergy/AdvReac Type Severity Reaction Status Date / Time No Known Allergies Allergy Unverified 05/07/20 00:16 Home Medications Medication Instructions Recorded Confirmed Last Taken Type Aspirin [Adult Aspirin] 81 mg PO QDAY 05/07/20 05/07/20 Unknown History Atorvastatin Calcium [Lipitor] 80 mg PO QDAY 05/07/20 05/07/20 Unknown History Escitalopram [Lexapro] 10 mg PO DAILY 05/07/20 05/07/20 Unknown History Lisinopril/Hydrochlorothiazide 1 each PO QDAY 05/07/20 05/07/20 Unknown History [Zestoretic 10-12.5 mg Tablet] levETIRAcetam [Keppra TAB] 750 mg PO BID 05/07/20 05/07/20 Unknown History Citalopram [celeXA] 10 mg PO DAILY 05/09/20 05/09/20 Unknown History Aspirin 325 mg PO QDAY #30 tablet 05/14/20 Unknown Rx AtorvaSTATin [Lipitor] 40 mg PO QHS #30 tablet 05/14/20 Unknown Rx Citalopram [Celexa] 20 mg PO QDAY #30 tablet 05/14/20 Unknown Rx Folic Acid [Folvite] 1 mg PO QDAY #30 tablet 05/14/20 Unknown Rx Mirtazapine [Remeron 15mg TAB] 7.5 mg PO QHS #30 tablet 05/14/20 Unknown Rx Multivitamin Tab [Multiple Vitamin 1 each PO QDAY #30 tablet 05/14/20 Unknown Rx TAB (Theragran)] Thiamine [Vitamin B-1] 100 mg PO QDAY #30 tablet 05/14/20 Unknown Rx haloperidoL [Haldol] 1 mg PO BID #30 tablet 05/14/20 Unknown Rx levETIRAcetam [Keppra TAB] 1,000 mg PO BID #60 tablet 05/14/20 Unknown Rx Active Meds: Active Medications Acetaminophen (Acetaminophen 325 Mg Tab) 650 mg PO Q4H PRN PRN Reason: Pain MILD(1-3)/Fever >100.5/[place] Last Admin: 05/31/20 09:44 Dose: 650 mg Documented by: Aspirin (Aspirin 325 Mg Tab) 325 mg PO QDAY [facility] Last Admin: 06/02/20 09:35 Dose: 325 mg Documented by: Atorvastatin Calcium (Atorvastatin 40 Mg Tab) 40 mg PO QHS [facility] Last Admin: 06/01/20 21:51 Dose: 40 mg Documented by: Escitalopram Oxalate (Escitalopram 10 Mg Tab) 10 mg PO DAILY [facility] Last Admin: 06/02/20 09:35 Dose: 10 mg Documented by: Folic Acid (Folic Acid 1 Mg Tab) 1 mg PO QDAY [facility] Last Admin: 06/02/20 09:35 Dose: 1 mg Documented by: Haloperidol (Haloperidol 1 Mg Tab) 1 mg PO BID [facility] Last Admin: 06/02/20 09:35 Dose: 1 mg Documented by: Hydrochlorothiazide (Hydrochlorothiazide 12.5 Mg Cap) 12.5 mg PO QDAY [facility] Last Admin: 06/02/20 09:34 Dose: 12.5 mg Documented by: Sodium Chloride (Nacl 0.9% 1000 Ml) 1,000 mls @ 125 mls/hr IV DIRECT [facility] Last Admin: 06/02/20 06:43 Dose: 125 mls/hr Documented by: Levetiracetam 500 mg/ Dextrose 105 mls @ 400 mls/hr IV Q12HR [facility] Last Admin: 06/02/20 09:33 Dose: 400 mls/hr Documented by: Lisinopril (Lisinopril 10 Mg Tab) 10 mg PO QDAY [facility] Last Admin: 06/02/20 09:35 Dose: 10 mg Documented by: Lorazepam (Lorazepam 2 Mg/Ml Vial) 1 mg IV Q4H PRN PRN Reason: Seizures Last Admin: 06/01/20 22:04 Dose: 1 mg Documented by: Lorazepam (Lorazepam 2 Mg/Ml Vial) 1 mg IV Q4H PRN PRN Reason: Agitation Magnesium Hydroxide (Magnesium Hydroxide (Mom) Oral Liqd Udc) 30 ml PO Q4H PRN PRN Reason: Constipation Mirtazapine (Mirtazapine 15 Mg Tab) 7.5 mg PO QHS [facility] Last Admin: 06/01/20 21:51 Dose: 7.5 mg Documented by: Morphine Sulfate (Morphine 2 Mg/1 Ml Inj) 2 mg IV Q4H PRN PRN Reason: Pain, Moderate (4-6) Last Admin: 05/31/20 15:55 Dose: 2 mg Documented by: Multivitamins (Multivitamins ,Therapeutic Tab) 1 each PO QDAY [facility] Last Admin: 06/02/20 09:35 Dose: 1 each Documented by: Ondansetron HCl (Ondansetron 4 Mg/2 Ml Inj) 4 mg IV Q8H PRN PRN Reason: Nausea And Vomiting Sodium Chloride (Sodium Chloride 0.9% 10 Ml Flush Syringe) 10 ml IV BID [facility] Last Admin: 06/02/20 10:28 Dose: 10 ml Documented by: Sodium Chloride (Sodium Chloride 0.9% 10 Ml Flush Syringe) 10 ml IV PRN PRN PRN Reason: LINE FLUSH Last Admin: 05/31/20 15:56 Dose: 10 ml Documented by: Thiamine HCl (Thiamine 100 Mg Tab) 100 mg PO QDAY [facility] Last Admin: 06/02/20 09:35 Dose: 100 mg Documented by: Review of Systems ROS unobtainable: due to mental status Physical Examination - Vital Signs Vital Signs: Vital Signs Pulse Resp BP Pulse Ox 87 18 113/69 99 05/29/20 18:15 05/29/20 18:15 05/29/20 18:15 05/29/20 18:15 - Physical Exam Narrative exam: Gen: nad Head: normocephalic; Eyes: no gaze deviation; no ptosis appreciated; ENT: +ETT; CVS: warm and well-perfused; Pulm: no respiratory distress; GI: non-distended, non-protuberant; Ext: no cyanosis at distal extremities; Skin: no acute rash at distal extremities; Heme: no bruising at distal extremities; Neuro: alert, nonsensical vocalization, o/w severe mixed expressive/receptive aphasia; CN 2 - sluggish reactive pupils, pt cannot participate w/ visual field exam; CN 3, 4, 6 - no gaze deviation, CN 5/7 - open/close eyes spontaneously, CN 9/10 - no swallowing noted; no spontaneous coughs noted, CN 11/12 - pt cannot cooperate secondary to LOC; Motor/Sensory - at least 2/5 at all proximal exts with at least 1/5 at bilateral distral extremiteis; at least 2/5 at distal RLE and at least 3/5 a distal LLE and 2/5 at distal RLE to tactile stimuli; Cerebellar/Gait - pt cannot cooperate secondary to LOC; NIHSS>22; Results - Laboratory Findings CBC and BMP: 06/01/20 05:33 06/01/20 05:33 Abnormal Lab Findings: Abnormal Labs 05/29/20 05/29/20 05/30/20 18:13 18:13 04:50 WBC RBC Hgb Hct MCV 97 H 97 H MCH 33 H 33 H RDW 12.9 L 13.0 L Plt Count [place] % (Auto) 9.1 H 9.2 H [place] # (Auto) 0.9 H 0.9 H Seg Neutrophils % Seg Neutrophils # INR Sodium Potassium 3.4 L Chloride BUN 34 H Creatinine Glucose 107 H Total Protein Albumin 05/30/20 05/30/20 06/01/20 04:50 04:50 05:33 WBC 11.4 H RBC 3.31 L Hgb 10.9 L Hct 32.1 L MCV 97 H MCH 33 H RDW 13.1 L Plt Count 131 L [place] % (Auto) [place] # (Auto) Seg Neutrophils % 72.3 H Seg Neutrophils # 8.2 H INR 1.16 H Sodium 146 H Potassium 3.0 L Chloride 110.1 H BUN 32 H Creatinine Glucose Total Protein Albumin 06/01/20 05:33 WBC RBC Hgb Hct MCV MCH RDW Plt Count [place] % (Auto) [place] # (Auto) Seg Neutrophils % Seg Neutrophils # INR Sodium Potassium 3.5 L Chloride 109.8 H BUN Creatinine 0.7 L Glucose Total Protein 5.5 L D Albumin 3.3 L Assessment and Plan 50 yo male with recent stroke in 03/2020 with bilateral arm weakness with severe expressive aphasia, seizure d/o, acute on chronic metabolic encephalopathy, depression, PTSD, admitted to the hospitial for notable subacute encephalopathy which the (at bedside) initially attributed to the haldol that was being administered to him at the facility but now with continued encephalopathy. 1. Metabolic Encephalopathy - workup per primary team. 2. Subclinical Seizure - recommend transfer if patient will not be able to undergo an EEG within the next 24 hours. 3. Acute Ischemic Stroke (vs. extension of previous stroke vs. recrudescence) - ordered MR Brain w/ wo contrast; aspirin 81 mg po qday and statin therapy for a goal ldl of 70. 4. NMS - in the differential diagnosis; consider bromocriptine/dantrolene combination to note for any improvement. 5. Aspiration / Seizure precautions. Evan Manzo MD Neurology
[2020-06-02] MEDS: LORazepam 2 MG/ML VIAL IV PRN (21:32)
[2020-06-02] MEDS: MIRTAZAPINE 15 MG TAB PO SCH (22:37)
[2020-06-03] MEDS: SODIUM CHLORIDE 0.9% 1000 ML 1,000 ML IV SCH ×2 (04:29→15:30)
[2020-06-03] MEDS: ESCITALOPRAM 10 MG TAB PO SCH (09:39)
[2020-06-03] MEDS: ASPIRIN 325 MG TAB PO SCH (09:40)
[2020-06-03] MEDS: THIAMINE 100 MG TAB PO SCH (09:40)
[2020-06-03] MEDS: MULTIVITAMINS ,THERAPEUTIC TAB PO SCH (09:40)
[2020-06-03] MEDS: hydroCHLOROthiazide 12.5 MG CAP PO SCH (09:41)
[2020-06-03] MEDS: LISINOPRIL 10 MG TAB PO SCH (09:41)
[2020-06-03] MEDS: FOLIC ACID 1 MG TAB PO SCH (09:42)
[2020-06-03] MEDS: HALOPERIDOL 1 MG TAB PO SCH ×2 (09:43→22:42)
[2020-06-03] MEDS: levETIRAcetam 500 MG in DEXTROSE 5% IN WATER 100 ML IV SCH ×2 (10:02→22:41)
--- NOTE | 2020-06-03 10:31 | Progress Note ---
Assessment and Plan Assessment and plan: #Acute metabolic encephalopathy versus delirium Patient is alert but nonverbal Psychiatry evaluation appreciated Need to rule out seizures-MRI brain with and without contrast and EEG ordered #History of seizures Keppra Neurology evaluation appreciated MRI brain with and without contrast ordered EEG Plan for possible transfer pending EEG results. #Dehydration Encourage p.o. intake # Hypokalemia Replete DVT prophylaxis on heparin and GI prophylaxis Patient in restraints History Interval history: 50-year-old male with known history of acute on chronic metabolic encephalopathy, depression, speech impairment, seizure disorder, PTSD was brought to the emergency room today with altered mental status. Patient is a resident of [facility]ref[facility] of [facility]. Nursing staff at the facility were concerned that patient may have had a seizure. He was given IM Ativan prior to arrival in the emergency room. Records indicates the patient was admitted last month and was diagnosed with acute on chronic metabolic encephalopathy and also PTSD. Patient is a poor historian, most of the history was gotten from the ER physician. Patient is said to be on multiple medications at the skilled facility. Work-up in the emergency room today reveals elevated BUN/creatinine ratio. Patient is being admitted with altered mental status with possible dehydration. 05/30/20 Patient is alert but not oriented Just staring at me In restraints Staring into space 05/31/2020 Patient is alert but not oriented Just staring at me In restraints Staring into space 06/01 Same condition ALert but not oriented Staring into space Addendum I took extensive history from the and reviewed the previous admission from May 07 to the discharge time which was approximately May 14, 2020. Patient was apparently walking and dragging his right lower extremity. Not using walker. But patient has been having persistent expressive aphasia. Able to do his ADLs ~admission May 06 on May 14 patient was transferred to [facility] for rehab. MRI was negative for any acute subacute stroke. Patient was labeled as TIA when he was discharged from [place] but as per patient was having right-sided deficits which are more consistent with cerebrovascular accident but the imaging studies are not showing any infarct. Patient has seizures off and on and is on antiepileptics. Depakote was recommended but not carried through. Will defer to neurology and psychiatry. If cleared by psychiatry and neurology will transfer back to [facility] with a regular follow-up with neurology and psychiatry as outpatient. Patient is otherwise stable except for a low potassium which is being supplemented. 06/02 As per psych--no catatonia Neuro consult appreciated Ordered MRI agai Recommended EEG 06/03. Patient is nonverbal this AM. He was staring at me. He subsequently burst into laughter as I tried to listen to his chest. Psychiatry has already evaluated patient MRI brain with and without contrast and EEG pending Neurology following Hospitalist Physical - Physical exam Narrative exam: VITAL SIGNS: Reviewed. GENERAL: Awake HEAD: No signs of head trauma. EYES: Pupils are equal. Extraocular motions intact. MOUTH: Oropharynx is normal. NECK: No adenopathy, no JVD. CHEST: Chest with diminished breath sounds bilaterally. No wheezes, rales, or rhonchi. CARDIAC: normal S1 and S2, without murmurs, gallops, or rubs. ABDOMEN: Soft, non tender and non distended. No rebound or guarding, and no masses palpated. Bowel Sounds normal. MUSCULOSKELETAL: No edema NEUROLOGIC EXAM: Alert but nonverbal. No new focal neurologic deficits noted. Psych exam: Nonverbal SKIN: No obvious lesions - Constitutional Vitals: Temp Pulse Resp BP Pulse Ox 98.5 F 85 18 146/81 100 06/03/20 03:24 06/03/20 09:41 06/03/20 07:54 06/03/20 09:41 06/03/20 03:24 Results - Labs CBC & Chem 7: 06/01/20 05:33 06/01/20 05:33 Labs: Laboratory Last Values WBC 11.4 K/mm3 (4.5-11.0) H 06/01/20 05:33 RBC 3.31 M/mm3 (3.65-5.03) L 06/01/20 05:33 Hgb 10.9 gm/dl (11.8-15.2) L 06/01/20 05:33 Hct 32.1 % (35.5-45.6) L 06/01/20 05:33 MCV 97 fl (84-94) H 06/01/20 05:33 MCH 33 pg (28-32) H 06/01/20 05:33 MCHC 34 % (32-34) 06/01/20 05:33 RDW 13.1 % (13.2-15.2) L 06/01/20 05:33 Plt Count 131 K/mm3 (140-440) L 06/01/20 05:33 Lymph % (Auto) 19.4 % (13.4-35.0) 06/01/20 05:33 [place] % (Auto) 7.2 % (0.0-7.3) 06/01/20 05:33 Eos % (Auto) 0.5 % (0.0-4.3) 06/01/20 05:33 Baso % (Auto) 0.6 % (0.0-1.8) 06/01/20 05:33 Lymph # (Auto) 2.2 K/mm3 (1.2-5.4) 06/01/20 05:33 [place] # (Auto) 0.8 K/mm3 (0.0-0.8) 06/01/20 05:33 Eos # (Auto) 0.1 K/mm3 (0.0-0.4) 06/01/20 05:33 Baso # (Auto) 0.1 K/mm3 (0.0-0.1) 06/01/20 05:33 Seg Neutrophils % 72.3 % (40.0-70.0) H 06/01/20 05:33 Seg Neutrophils # 8.2 K/mm3 (1.8-7.7) H 06/01/20 05:33 PT 14.6 Sec. (12.2-14.9) 05/30/20 04:50 INR 1.16 (0.87-1.13) H 05/30/20 04:50 Sodium 143 mmol/L (137-145) 06/01/20 05:33 Potassium 3.5 mmol/L (3.6-5.0) L 06/01/20 05:33 Chloride 109.8 mmol/L (98-107) H 06/01/20 05:33 Carbon Dioxide 25 mmol/L (22-30) 06/01/20 05:33 Anion Gap 12 mmol/L 06/01/20 05:33 BUN 15 mg/dL (9-20) 06/01/20 05:33 Creatinine 0.7 mg/dL (0.8-1.3) L 06/01/20 05:33 Estimated GFR > 60 ml/min 06/01/20 05:33 BUN/Creatinine Ratio 21 % 06/01/20 05:33 Glucose 91 mg/dL (75-100) 06/01/20 05:33 POC Glucose 84 mg/dL (70-105) 06/01/20 17:51 Calcium 8.6 mg/dL (8.4-10.2) 06/01/20 05:33 Total Bilirubin 0.80 mg/dL (0.1-1.2) 06/01/20 05:33 AST 30 units/L (5-40) 06/01/20 05:33 ALT 15 units/L (7-56) 06/01/20 05:33 Alkaline Phosphatase 64 units/L (35-129) 06/01/20 05:33 Total Protein 5.5 g/dL (6.3-8.2) L D 06/01/20 05:33 Albumin 3.3 g/dL (3.9-5) L 06/01/20 05:33 Albumin/Globulin Ratio 1.5 % 06/01/20 05:33 TSH 0.709 mlU/mL (0.270-4.200) 05/29/20 18:13 Urine Color Yellow (Yellow) 05/29/20 21:28 Urine Turbidity Clear (Clear) 05/29/20 21:28 Urine pH 6.0 (5.0-7.0) 05/29/20 21:28 Ur Specific [place] 1.026 (1.003-1.030) 05/29/20 21:28 Urine Protein 30 mg/dl mg/dL (Negative) 05/29/20 21:28 Urine Glucose (UA) Neg mg/dL (Negative) 05/29/20 21:28 Urine Ketones 80 mg/dL (Negative) 05/29/20 21:28 Urine Blood Neg (Negative) 05/29/20 21:28 Urine Nitrite Neg (Negative) 05/29/20 21:28 Urine Bilirubin Neg (Negative) 05/29/20 21:28 Urine Urobilinogen 4.0 mg/dL (<2.0) 05/29/20 21:28 Ur Leukocyte Esterase Neg (Negative) 05/29/20 21:28 Urine WBC (Auto) 1.0 /HPF (0.0-6.0) 05/29/20 21:28 Urine RBC (Auto) < 1.0 /HPF (0.0-6.0) 05/29/20 21:28 U Epithel Cells (Auto) < 1.0 /HPF (0-13.0) 05/29/20 21:28 Urine Mucus 2+ /HPF 05/29/20 21:28 Tom/IV: Voiding Method Condom Catheter Active Medications - Current Medications Current Medications: Generic Name Dose Route Start Last Admin Trade Name Freq PRN Reason Stop Dose Admin Acetaminophen 650 mg 05/29/20 22:12 05/31/20 09:44 Acetaminophen 325 Mg Tab PO 650 mg Q4H PRN Administration Pain MILD(1-3)/Fever >100.5/[place] Aspirin 325 mg 05/30/20 10:00 06/03/20 09:40 Aspirin 325 Mg Tab PO 325 mg QDAY JOSE Administration Atorvastatin Calcium 40 mg 05/30/20 22:00 06/02/20 22:36 Atorvastatin 40 Mg Tab PO Not Given QHS JOSE Escitalopram Oxalate 10 mg 05/30/20 10:00 06/03/20 09:39 Escitalopram 10 Mg Tab PO 10 mg DAILY JOSE Administration Folic Acid 1 mg 05/30/20 10:00 06/03/20 09:42 Folic Acid 1 Mg Tab PO 1 mg QDAY JOSE Administration Haloperidol 1 mg 05/31/20 13:00 06/03/20 09:43 Haloperidol 1 Mg Tab PO Not Given BID JOSE Hydrochlorothiazide 12.5 mg 05/31/20 13:00 06/03/20 09:41 Hydrochlorothiazide 12.5 Mg Cap PO 12.5 mg QDAY JOSE Administration Sodium Chloride 1,000 mls @ 125 mls/hr 05/29/20 23:15 06/03/20 04:29 Nacl 0.9% 1000 Ml IV 125 mls/hr DIRECT JOSE Administration Levetiracetam 500 mg/ Dextrose 105 mls @ 400 mls/hr 05/30/20 10:00 06/03/20 10:02 IV 400 mls/hr Q12HR JOSE Administration Lisinopril 10 mg 05/31/20 13:00 06/03/20 09:41 Lisinopril 10 Mg Tab PO 10 mg QDAY JOSE Administration Lorazepam 1 mg 05/31/20 21:37 06/01/20 22:04 Lorazepam 2 Mg/Ml Vial IV 1 mg Q4H PRN Administration Seizures Lorazepam 1 mg 05/31/20 21:41 06/02/20 21:32 Lorazepam 2 Mg/Ml Vial IV 1 mg Q4H PRN Administration Agitation Magnesium Hydroxide 30 ml 05/29/20 23:03 Magnesium Hydroxide (Mom) Oral Liqd Udc PO Q4H PRN Constipation Mirtazapine 7.5 mg 05/30/20 22:00 06/02/20 22:37 Mirtazapine 15 Mg Tab PO Not Given QHS JOSE Morphine Sulfate 2 mg 05/29/20 23:03 05/31/20 15:55 Morphine 2 Mg/1 Ml Inj IV 2 mg Q4H PRN Administration Pain, Moderate (4-6) Multivitamins 1 each 05/30/20 10:00 06/03/20 09:40 Multivitamins ,Therapeutic Tab PO 1 each QDAY JOSE Administration Ondansetron HCl 4 mg 05/29/20 22:12 Ondansetron 4 Mg/2 Ml Inj IV Q8H PRN Nausea And Vomiting Sodium Chloride 10 ml 05/30/20 10:00 06/03/20 09:43 Sodium Chloride 0.9% 10 Ml Flush Syringe IV 10 ml BID JOSE Administration Sodium Chloride 10 ml 05/29/20 22:12 06/02/20 21:31 Sodium Chloride 0.9% 10 Ml Flush Syringe IV 10 ml PRN PRN Administration LINE FLUSH Thiamine HCl 100 mg 05/30/20 10:00 06/03/20 09:40 Thiamine 100 Mg Tab PO 100 mg QDAY JOSE Administration Nutrition/Malnutrition Assess - Dietary Evaluation Nutrition/Malnutrition Findings: Nutrition Notes Start: 06/02/20 10:12 Freq: Status: Active Protocol: Document 06/02/20 10:12 (Rec: 06/02/20 10:17 [email or web address]) Nutrition Notes Need for Assessment generated from: package designer Initial or Follow up Assessment Current Diagnosis Stroke Other Pertinent Diagnosis AMS, seizure Current Diet Pureed, cardiac Labs/Tests 06/01: K 3.5 Pertinent Medications NS at 125 ml/hr Height 5 ft 8 in Weight 73.6 kg [place] Body Weight (kg) 70.00 BMI 24.6 Weight Status Appropriate Subjective/Other Information RN screen for skin risk. Chip score 13. Pt unable to communicate. Per RN, pt refusing to eat or drink. Will give ONS if pt open to drinking something. Burn Absent Trauma Absent Current % PO Negligible Minimum of two criteria No physical signs of malnutrition #1 Nutrition Diagnosis Inadequate oral intake Etiology AMS As Evidenced by Signs and Symptoms pt refusing food/drink Is patient on ventilator? No Is Patient Ambulatory and/or Out of Bed No REE-([facility]-confined to bed) [phone] Calculation Used for Recommendations [facility] Additional Notes Protein: (0.8-1g/kg) 59-74g Fluid: 1 ml/kcal Nutrition Intervention Change Diet Order: Continue Add Supplement/Snack (indicate name/kcal Ensure Enlive daily /protein ) Provides kCal: 350 Provides Protein (gm) 20 Goal #1 Meet at least 75% of protein and energy needs via PO and ONS intakes Anticipated Discharge Needs: Pureed with ONS PRN Follow-Up By: 06/04/20 Additional Comments FU for intakes and ONS tolerance
[2020-06-03] MEDS: LORazepam 2 MG/ML VIAL IV PRN (12:56)
[2020-06-03] MEDS: MIRTAZAPINE 15 MG TAB PO SCH (22:42)
[2020-06-04] MEDS: ASPIRIN 325 MG TAB PO SCH (10:09)
[2020-06-04] MEDS: ESCITALOPRAM 10 MG TAB PO SCH (10:10)
[2020-06-04] MEDS: hydroCHLOROthiazide 12.5 MG CAP PO SCH (10:10)
[2020-06-04] MEDS: THIAMINE 100 MG TAB PO SCH (10:10)
[2020-06-04] MEDS: levETIRAcetam 500 MG in DEXTROSE 5% IN WATER 100 ML IV SCH ×2 (10:10→22:57)
[2020-06-04] MEDS: LISINOPRIL 10 MG TAB PO SCH (10:10)
[2020-06-04] MEDS: FOLIC ACID 1 MG TAB PO SCH (10:10)
[2020-06-04] MEDS: MULTIVITAMINS ,THERAPEUTIC TAB PO SCH (10:10)
[2020-06-04] MEDS: LORazepam 2 MG/ML VIAL IV PRN (15:14)
--- NOTE | 2020-06-04 18:42 | Progress Note ---
Assessment and Plan Assessment and plan: #Acute metabolic encephalopathy versus delirium Patient is alert but nonverbal Psychiatry evaluation appreciated Need to rule out seizures-MRI brain with and without contrast and EEG ordered #History of seizures [place] Neurology evaluation appreciated MRI brain with and without contrast pending EEG performed - awaiting results. Plan for possible transfer pending EEG results. #Dehydration Encourage p.o. intake # Hypokalemia Replete DVT prophylaxis on heparin and GI prophylaxis Patient in restraints History Interval history: 50-year-old male with known history of acute on chronic metabolic encephalopathy, depression, speech impairment, seizure disorder, PTSD was brought to the emergency room today with altered mental status. Patient is a [facility]-referred of healthcare. Nursing staff at the facility were concerned that patient may have had a seizure. He was given IM Ativan prior to arrival in the emergency room. Records indicates the patient was admitted last month and was diagnosed with acute on chronic metabolic encephalopathy and also PTSD. Patient is a poor historian, most of the history was gotten from the ER physician. Patient is said to be on multiple medications at the skilled facility. Work-up in the emergency room today reveals elevated BUN/creatinine ratio. Patient is being admitted with altered mental status with possible dehydration. 05/30/20 Patient is alert but not oriented Just staring at me In restraints Staring into space 05/31/2020 Patient is alert but not oriented Just staring at me In restraints Staring into space 06/01 Same condition ALert but not oriented Staring into space Addendum I took extensive history from the and reviewed the previous admission from May 07 to the discharge time which was approximately May 14, 2020. Patient was apparently walking and dragging his right lower extremity. Not using walker. But patient has been having persistent expressive aphasia. Able to do his ADLs ~admission May 06 on May 14 patient was transferred to [facility] for rehab. MRI was negative for any acute subacute stroke. Patient was labeled as TIA when he was discharged from [place] but as per patient was having right-sided deficits which are more consistent with cerebrovascular accident but the imaging studies are not showing any infarct. Patient has seizures off and on and is on antiepileptics. Depakote was recommended but not carried through. Will defer to neurology and psychiatry. If cleared by psychiatry and neurology will transfer back to [facility] with a regular follow-up with neurology and psychiatry as outpatient. Patient is otherwise stable except for a low potassium which is being supplemented. 06/02 As per psych--no catatonia Neuro consult appreciated Ordered MRI agai Recommended EEG 06/03. Patient is nonverbal this AM. He was staring at me. He subsequently burst into laughter as I tried to listen to his chest. Psychiatry has already evaluated patient MRI brain with and without contrast and EEG pending Neurology following 06/04. EEG performed. Awaiting results. Neurology to see. Could not get MRI brain yesterday. Will reattempt today. Hospitalist Physical - Physical exam Narrative exam: VITAL SIGNS: Reviewed. GENERAL: Awake HEAD: No signs of head trauma. EYES: Pupils are equal. Extraocular motions intact. MOUTH: Oropharynx is normal. NECK: No adenopathy, no JVD. CHEST: Chest with diminished breath sounds bilaterally. No wheezes, rales, or rhonchi. CARDIAC: normal S1 and S2, without murmurs, gallops, or rubs. ABDOMEN: Soft, non tender and non distended. No rebound or guarding, and no masses palpated. Bowel Sounds normal. MUSCULOSKELETAL: No edema NEUROLOGIC EXAM: Alert but nonverbal. No new focal neurologic deficits noted. Psych exam: Nonverbal SKIN: No obvious lesions - Constitutional Vitals: Temp Pulse Resp BP Pulse Ox 98.1 F 98 H 17 135/76 99 06/04/20 16:59 06/04/20 16:59 06/04/20 16:59 06/04/20 16:59 06/04/20 16:59 Results - Labs CBC & Chem 7: 06/01/20 05:33 06/01/20 05:33 Labs: Laboratory Last Values WBC 11.4 K/mm3 (4.5-11.0) H 06/01/20 05:33 RBC 3.31 M/mm3 (3.65-5.03) L 06/01/20 05:33 Hgb 10.9 gm/dl (11.8-15.2) L 06/01/20 05:33 Hct 32.1 % (35.5-45.6) L 06/01/20 05:33 MCV 97 fl (84-94) H 06/01/20 05:33 MCH 33 pg (28-32) H 06/01/20 05:33 MCHC 34 % (32-34) 06/01/20 05:33 RDW 13.1 % (13.2-15.2) L 06/01/20 05:33 Plt Count 131 K/mm3 (140-440) L 06/01/20 05:33 Lymph % (Auto) 19.4 % (13.4-35.0) 06/01/20 05:33 [place] % (Auto) 7.2 % (0.0-7.3) 06/01/20 05:33 Eos % (Auto) 0.5 % (0.0-4.3) 06/01/20 05:33 Baso % (Auto) 0.6 % (0.0-1.8) 06/01/20 05:33 Lymph # (Auto) 2.2 K/mm3 (1.2-5.4) 06/01/20 05:33 [place] # (Auto) 0.8 K/mm3 (0.0-0.8) 06/01/20 05:33 Eos # (Auto) 0.1 K/mm3 (0.0-0.4) 06/01/20 05:33 Baso # (Auto) 0.1 K/mm3 (0.0-0.1) 06/01/20 05:33 Seg Neutrophils % 72.3 % (40.0-70.0) H 06/01/20 05:33 Seg Neutrophils # 8.2 K/mm3 (1.8-7.7) H 06/01/20 05:33 PT 14.6 Sec. (12.2-14.9) 05/30/20 04:50 INR 1.16 (0.87-1.13) H 05/30/20 04:50 Sodium 143 mmol/L (137-145) 06/01/20 05:33 Potassium 3.5 mmol/L (3.6-5.0) L 06/01/20 05:33 Chloride 109.8 mmol/L (98-107) H 06/01/20 05:33 Carbon Dioxide 25 mmol/L (22-30) 06/01/20 05:33 Anion Gap 12 mmol/L 06/01/20 05:33 BUN 15 mg/dL (9-20) 06/01/20 05:33 Creatinine 0.7 mg/dL (0.8-1.3) L 06/01/20 05:33 Estimated GFR > 60 ml/min 06/01/20 05:33 BUN/Creatinine Ratio 21 % 06/01/20 05:33 Glucose 91 mg/dL (75-100) 06/01/20 05:33 POC Glucose 84 mg/dL (70-105) 06/01/20 17:51 Calcium 8.6 mg/dL (8.4-10.2) 06/01/20 05:33 Total Bilirubin 0.80 mg/dL (0.1-1.2) 06/01/20 05:33 AST 30 units/L (5-40) 06/01/20 05:33 ALT 15 units/L (7-56) 06/01/20 05:33 Alkaline Phosphatase 64 units/L (35-129) 06/01/20 05:33 Total Protein 5.5 g/dL (6.3-8.2) L D 06/01/20 05:33 Albumin 3.3 g/dL (3.9-5) L 06/01/20 05:33 Albumin/Globulin Ratio 1.5 % 06/01/20 05:33 TSH 0.709 mlU/mL (0.270-4.200) 05/29/20 18:13 Urine Color Yellow (Yellow) 05/29/20 21:28 Urine Turbidity Clear (Clear) 05/29/20 21:28 Urine pH 6.0 (5.0-7.0) 05/29/20 21:28 Ur Specific [place] 1.026 (1.003-1.030) 05/29/20 21:28 Urine Protein 30 mg/dl mg/dL (Negative) 05/29/20 21:28 Urine Glucose (UA) Neg mg/dL (Negative) 05/29/20 21:28 Urine Ketones 80 mg/dL (Negative) 05/29/20 21:28 Urine Blood Neg (Negative) 05/29/20 21:28 Urine Nitrite Neg (Negative) 05/29/20 21:28 Urine Bilirubin Neg (Negative) 05/29/20 21:28 Urine Urobilinogen 4.0 mg/dL (<2.0) 05/29/20 21:28 Ur Leukocyte Esterase Neg (Negative) 05/29/20 21:28 Urine WBC (Auto) 1.0 /HPF (0.0-6.0) 05/29/20 21:28 Urine RBC (Auto) < 1.0 /HPF (0.0-6.0) 05/29/20 21:28 U Epithel Cells (Auto) < 1.0 /HPF (0-13.0) 05/29/20 21:28 Urine Mucus 2+ /HPF 05/29/20 21:28 Tom/IV: Voiding Method Condom Catheter Active Medications - Current Medications Current Medications: Generic Name Dose Route Start Last Admin Trade Name Freq PRN Reason Stop Dose Admin Acetaminophen 650 mg 05/29/20 22:12 05/31/20 09:44 Acetaminophen 325 Mg Tab PO 650 mg Q4H PRN Administration Pain MILD(1-3)/Fever >100.5/VALDES Aspirin 325 mg 05/30/20 10:00 06/04/20 10:09 Aspirin 325 Mg Tab PO 325 mg QDAY JOSE Administration Atorvastatin Calcium 40 mg 05/30/20 22:00 06/03/20 22:42 Atorvastatin 40 Mg Tab PO 40 mg QHS JOSE Administration Escitalopram Oxalate 10 mg 05/30/20 10:00 06/04/20 10:10 Escitalopram 10 Mg Tab PO 10 mg DAILY JOSE Administration Folic Acid 1 mg 05/30/20 10:00 06/04/20 10:10 Folic Acid 1 Mg Tab PO 1 mg QDAY JOSE Administration Hydrochlorothiazide 12.5 mg 05/31/20 13:00 06/04/20 10:10 Hydrochlorothiazide 12.5 Mg Cap PO 12.5 mg QDAY JOSE Administration Sodium Chloride 1,000 mls @ 125 mls/hr 05/29/20 23:15 06/03/20 15:30 Nacl 0.9% 1000 Ml IV 125 mls/hr DIRECT JOSE Administration Levetiracetam 500 mg/ Dextrose 105 mls @ 400 mls/hr 05/30/20 10:00 06/04/20 10:10 IV 06/04/20 23:59 400 mls/hr Q12HR JOSE Administration Levetiracetam 500 mg 06/05/20 10:00 Levetiracetam 500 Mg/5 Ml Oral Liqd PO BID JOSE Lisinopril 10 mg 05/31/20 13:00 06/04/20 10:10 Lisinopril 10 Mg Tab PO 10 mg QDAY JOSE Administration Lorazepam 1 mg 05/31/20 21:37 06/03/20 12:56 Lorazepam 2 Mg/Ml Vial IV 1 mg Q4H PRN Administration Seizures Lorazepam 1 mg 05/31/20 21:41 06/04/20 15:14 Lorazepam 2 Mg/Ml Vial IV 1 mg Q4H PRN Administration Agitation Magnesium Hydroxide 30 ml 05/29/20 23:03 Magnesium Hydroxide (Mom) Oral Liqd Udc PO Q4H PRN Constipation Mirtazapine 7.5 mg 05/30/20 22:00 06/03/20 22:42 Mirtazapine 15 Mg Tab PO 7.5 mg QHS JOSE Administration Morphine Sulfate 2 mg 05/29/20 23:03 05/31/20 15:55 Morphine 2 Mg/1 Ml Inj IV 2 mg Q4H PRN Administration Pain, Moderate (4-6) Multivitamins 1 each 05/30/20 10:00 06/04/20 10:10 Multivitamins ,Therapeutic Tab PO 1 each QDAY JOSE Administration Ondansetron HCl 4 mg 05/29/20 22:12 Ondansetron 4 Mg/2 Ml Inj IV Q8H PRN Nausea And Vomiting Sodium Chloride 10 ml 05/30/20 10:00 06/04/20 10:10 Sodium Chloride 0.9% 10 Ml Flush Syringe IV 10 ml BID JOSE Administration Sodium Chloride 10 ml 05/29/20 22:12 06/02/20 21:31 Sodium Chloride 0.9% 10 Ml Flush Syringe IV 10 ml PRN PRN Administration LINE FLUSH Thiamine HCl 100 mg 05/30/20 10:00 06/04/20 10:10 Thiamine 100 Mg Tab PO 100 mg QDAY JOSE Administration Nutrition/Malnutrition Assess - Dietary Evaluation Nutrition/Malnutrition Findings: Nutrition Notes Start: 06/02/20 10:12 Freq: Status: Active Protocol: Document 06/04/20 11:04 CW (Rec: 06/04/20 11:13 CW [id number]) Nutrition Notes Initial or Follow up Reassessment Current Diagnosis Stroke Other Pertinent Diagnosis AMS, seizure Current Diet Pureed, cardiac Labs/Tests K 3.5 Pertinent Medications remeron NS at 125 ml/hr Height 5 ft 8 in Weight 70.8 kg [place] Body Weight (kg) 70.00 BMI 23.7 Weight change and time frame -3.6% x 7 days; weight has tendency to fluctuate around this weight Weight Status Appropriate Subjective/Other Information F/U for intakes. Pt remains nonverbal. Per RN and tech, PO intake today is neglible. Pt recieves feeding assistance. Recommend continued encourage during meals. Alternate feeding route may be necessary d/t poor PO intake x5 days. Percent of energy/protein needs met: 0%/0% Burn Absent Trauma Absent Current % PO Negligible Minimum of two criteria No Energy Intake (severe) < or equal to 50% Estimated Energy Requirement > or equal to 5 days #1 Nutrition Diagnosis Inadequate oral intake Diagnosis Progress(for reassessment Continues documentation) Is Patient Ambulatory and/or Out of Bed No REE-([place]-confined to bed) 9051.158 [facility] Additional Notes Protein: (0.8-1g/kg) 59-74g Fluid: 1 ml/kcal Nutrition Intervention Change Diet Order: Continue Add Supplement/Snack (indicate name/kcal Ensure Enlive daily /protein ) Provides kCal: 350 Provides Protein (gm) 20 Goal #1 Meet at least 75% of protein and energy needs via PO and ONS intakes Anticipated Discharge Needs: Pureed with ONS PRN Follow-Up By: 06/06/20 Additional Comments F/U for intakes, ONS tolerance , and POC
[2020-06-04] MEDS: MIRTAZAPINE 15 MG TAB PO SCH (22:56)
[2020-06-05] MEDS: LORazepam 2 MG/ML VIAL IV PRN ×2 (07:55→22:23)
[2020-06-05] MEDS ORDERED: LORazepam 2 MG/ML VIAL IV SCH (08:00)
--- NOTE | 2020-06-05 09:01 | Cat Scan Report ---
CT head/brain wo con INDICATION: CVA. TECHNIQUE: Routine CT head. All CT scans at this location are performed using CT dose reduction for A JULIO C by means of automated exposure control. COMPARISON: May 29, 2020. FINDINGS: Intracranial: Barnes-white matter differentiation is maintained. No intracranial hemorrhage. No extra a xial collection. No hydrocephalus. No herniation. Sinuses: Mucosal retention cyst in left maxillary sinus. Paranasal sinuses and mastoid air cells are essentially clear. Orbits: Globes are intact. Calvarium: No acute fracture. IMPRESSION: 1. No acute intracranial abnormality. Signer Name: Tom Nickerson MD Signed: 06/05/2020 8:57 AM Workstation Name: [id number]
[2020-06-05] MEDS: FOLIC ACID 1 MG TAB PO SCH ×2 (09:25→10:52)
[2020-06-05] MEDS: ESCITALOPRAM 10 MG TAB PO SCH ×2 (09:26→10:52)
[2020-06-05] MEDS: hydroCHLOROthiazide 12.5 MG CAP PO SCH ×2 (09:26→10:52)
[2020-06-05] MEDS: THIAMINE 100 MG TAB PO SCH ×2 (09:27→10:52)
[2020-06-05] MEDS: MULTIVITAMINS ,THERAPEUTIC TAB PO SCH ×2 (09:27→10:52)
[2020-06-05] MEDS: LISINOPRIL 10 MG TAB PO SCH ×2 (09:28→10:53)
--- NOTE | 2020-06-05 10:37 | Magnetic Resonance Report ---
MRI BRAIN 06/05/2020 INDICATION / CLINICAL INFORMATION: MAIN. Neoplasm vs. Acute/Subacute Stroke Patient motion, best possible exam TECHNIQUE: Multiplanar, multisequence MR images of the brain were obtained. COMPARISON: MRI brain 05/09/2020 FINDINGS: BRAIN / INTRACRANIAL CONTENTS: Unenhanced and enhanced MR images of the brain were obtained and autumn red to the recent prior exam from 05/09/2020. There is been no change. There is no evidence of acute abnormality. Ventricles and sulci are normal in size and shape. There is no evidence of ischemic injury, demyelination, hemorrhage, or mass. There are no abnormal ex tra-axial fluid collections. Postcontrast images demonstrate no abnormal contrast enhancement. EXTRACRANIAL: Unremarkable CRANIOCERVICAL JUNCTION: No significant abnormality. VASCULAR FLOW-VOIDS: No significant abnormality. IMPRESSION: No acute abnormality. No significant abnormality. No change when compared to 05/09/2020. Signer Name: Micheal Coleman MD Signed: 06/05/2020 10:32 AM Workstation Name: [id number]
[2020-06-05] MEDS: levETIRAcetam 500 MG/5 ML ORAL LIQD PO SCH (10:52)
[2020-06-05] MEDS: ASPIRIN 325 MG TAB PO SCH (10:52)
--- NOTE | 2020-06-05 10:54 | Progress Note ---
Assessment and Plan Assessment and plan: #Acute metabolic encephalopathy versus delirium Patient is alert but nonverbal Psychiatry evaluation appreciated MRI brain is negative for acute pathology. EEG is pending. Doubt NMS as he has no classical signs of fever or muscular rigidity. Continue to hold Haldol. Hold antipsychotics Plan to get a CSF analysis to rule out any other infectious pathology. Will repeat his labs. Ordered CK, CRP, LFTs iron panel #CVA ruled out MRI and CT head negative for CVA #History of seizures Continue [place] Neurology evaluation appreciated MRI brain with and without contrast negative for acute pathology EEG performed - awaiting results. #Dehydration Encourage p.o. intake # Hypokalemia Repleted DVT prophylaxis on heparin and GI prophylaxis History Interval history: 50-year-old male with known history of acute on chronic metabolic encephalopathy, depression, speech impairment, seizure disorder, PTSD was brought to the emergency room today with altered mental status. Patient is a resident of group home facility-referred of healthcare. Nursing staff at the facility were concerned that patient may have had a seizure. He was given IM Ativan prior to arrival in the emergency room. Records indicates the patient was admitted last month and was diagnosed with acute on chronic metabolic encephalopathy and also PTSD. Patient is a poor historian, most of the history was gotten from the ER physician. Patient is said to be on multiple medications at the skilled facility. Work-up in the emergency room today reveals elevated BUN/creatinine ratio. Patient is being admitted with altered mental status with possible dehydration. 05/30/20 Patient is alert but not oriented Just staring at me In restraints Staring into space 05/31/2020 Patient is alert but not oriented Just staring at me In restraints Staring into space 06/01 Same condition ALert but not oriented Staring into space Addendum I took extensive history from the and reviewed the previous admission from May 07 to the discharge time which was approximately May 14, 2020. Patient was apparently walking and dragging his right lower extremity. Not using walker. But patient has been having persistent expressive aphasia. Able to do his ADLs ~admission May 06 on May 14 patient was transferred to [facility] for rehab. MRI was negative for any acute subacute stroke. Patient was labeled as TIA when he was discharged from [place] but as per patient was having right-sided deficits which are more consistent with cerebrovascular accident but the imaging studies are not showing any infarct. Patient has seizures off and on and is on antiepileptics. Depakote was recommended but not carried through. Will defer to neurology and psychiatry. If cleared by psychiatry and neurology will transfer back to [facility] with a regular follow-up with neurology and psychiatry as outpatient. Patient is otherwise stable except for a low potassium which is being supplemented. 06/02 As per psych--no catatonia Neuro consult appreciated Ordered MRI agai Recommended EEG 06/03. Patient is nonverbal this AM. He was staring at me. He subsequently burst into laughter as I tried to listen to his chest. Psychiatry has already evaluated patient MRI brain with and without contrast and EEG pending Neurology following 06/04. EEG performed. Awaiting results. Neurology to see. Could not get MRI brain yesterday. Will reattempt today. Holding his haldol 06/05. MRI brain is negative for any acute pathology. EEG unofficial read - shows possible encephalopathy. Awaiting neurology reeval. Updated patient's Hospitalist Physical - Constitutional Vitals: Temp Pulse Resp BP Pulse Ox 98.3 F 80 18 142/83 100 06/05/20 07:51 06/05/20 07:51 06/05/20 07:51 06/05/20 07:51 06/05/20 07:51 General appearance: Present: no acute distress, well-nourished Results - Labs CBC & Chem 7: 06/06/20 04:25 06/06/20 04:25 Labs: Laboratory Last Values WBC 11.4 K/mm3 (4.5-11.0) H 06/01/20 05:33 RBC 3.31 M/mm3 (3.65-5.03) L 06/01/20 05:33 Hgb 10.9 gm/dl (11.8-15.2) L 06/01/20 05:33 Hct 32.1 % (35.5-45.6) L 06/01/20 05:33 MCV 97 fl (84-94) H 06/01/20 05:33 MCH 33 pg (28-32) H 06/01/20 05:33 MCHC 34 % (32-34) 06/01/20 05:33 RDW 13.1 % (13.2-15.2) L 06/01/20 05:33 Plt Count 131 K/mm3 (140-440) L 06/01/20 05:33 Lymph % (Auto) 19.4 % (13.4-35.0) 06/01/20 05:33 [place] % (Auto) 7.2 % (0.0-7.3) 06/01/20 05:33 Eos % (Auto) 0.5 % (0.0-4.3) 06/01/20 05:33 Baso % (Auto) 0.6 % (0.0-1.8) 06/01/20 05:33 Lymph # (Auto) 2.2 K/mm3 (1.2-5.4) 06/01/20 05:33 [place] # (Auto) 0.8 K/mm3 (0.0-0.8) 06/01/20 05:33 Eos # (Auto) 0.1 K/mm3 (0.0-0.4) 06/01/20 05:33 Baso # (Auto) 0.1 K/mm3 (0.0-0.1) 06/01/20 05:33 Seg Neutrophils % 72.3 % (40.0-70.0) H 06/01/20 05:33 Seg Neutrophils # 8.2 K/mm3 (1.8-7.7) H 06/01/20 05:33 PT 14.6 Sec. (12.2-14.9) 05/30/20 04:50 INR 1.16 (0.87-1.13) H 05/30/20 04:50 Sodium 143 mmol/L (137-145) 06/01/20 05:33 Potassium 3.5 mmol/L (3.6-5.0) L 06/01/20 05:33 Chloride 109.8 mmol/L (98-107) H 06/01/20 05:33 Carbon Dioxide 25 mmol/L (22-30) 06/01/20 05:33 Anion Gap 12 mmol/L 06/01/20 05:33 BUN 15 mg/dL (9-20) 06/01/20 05:33 Creatinine 0.7 mg/dL (0.8-1.3) L 06/01/20 05:33 Estimated GFR > 60 ml/min 06/01/20 05:33 BUN/Creatinine Ratio 21 % 06/01/20 05:33 Glucose 91 mg/dL (75-100) 06/01/20 05:33 POC Glucose 84 mg/dL (70-105) 06/01/20 17:51 Calcium 8.6 mg/dL (8.4-10.2) 06/01/20 05:33 Total Bilirubin 0.80 mg/dL (0.1-1.2) 06/01/20 05:33 AST 30 units/L (5-40) 06/01/20 05:33 ALT 15 units/L (7-56) 06/01/20 05:33 Alkaline Phosphatase 64 units/L (35-129) 06/01/20 05:33 Total Protein 5.5 g/dL (6.3-8.2) L D 06/01/20 05:33 Albumin 3.3 g/dL (3.9-5) L 06/01/20 05:33 Albumin/Globulin Ratio 1.5 % 06/01/20 05:33 TSH 0.709 mlU/mL (0.270-4.200) 05/29/20 18:13 Urine Color Yellow (Yellow) 05/29/20 21:28 Urine Turbidity Clear (Clear) 05/29/20 21:28 Urine pH 6.0 (5.0-7.0) 05/29/20 21:28 Ur Specific [place] 1.026 (1.003-1.030) 05/29/20 21:28 Urine Protein 30 mg/dl mg/dL (Negative) 05/29/20 21:28 Urine Glucose (UA) Neg mg/dL (Negative) 05/29/20 21:28 Urine Ketones 80 mg/dL (Negative) 05/29/20 21:28 Urine Blood Neg (Negative) 05/29/20 21:28 Urine Nitrite Neg (Negative) 05/29/20 21:28 Urine Bilirubin Neg (Negative) 05/29/20 21:28 Urine Urobilinogen 4.0 mg/dL (<2.0) 05/29/20 21:28 Ur Leukocyte Esterase Neg (Negative) 05/29/20 21:28 Urine WBC (Auto) 1.0 /HPF (0.0-6.0) 05/29/20 21:28 Urine RBC (Auto) < 1.0 /HPF (0.0-6.0) 05/29/20 21:28 U Epithel Cells (Auto) < 1.0 /HPF (0-13.0) 05/29/20 21:28 Urine Mucus 2+ /HPF 05/29/20 21:28 Tom/IV: Voiding Method Condom Catheter Active Medications - Current Medications Current Medications: Generic Name Dose Route Start Last Admin Trade Name Freq PRN Reason Stop Dose Admin Acetaminophen 650 mg 05/29/20 22:12 05/31/20 09:44 Acetaminophen 325 Mg Tab PO 650 mg Q4H PRN Administration Pain MILD(1-3)/Fever >100.5/VALDES Aspirin 325 mg 05/30/20 10:00 06/04/20 10:09 Aspirin 325 Mg Tab PO 325 mg QDAY JOSE Administration Atorvastatin Calcium 40 mg 05/30/20 22:00 06/04/20 22:56 Atorvastatin 40 Mg Tab PO 40 mg QHS JOSE Administration Escitalopram Oxalate 10 mg 05/30/20 10:00 06/04/20 10:10 Escitalopram 10 Mg Tab PO 10 mg DAILY JOSE Administration Folic Acid 1 mg 05/30/20 10:00 06/04/20 10:10 Folic Acid 1 Mg Tab PO 1 mg QDAY JOSE Administration Hydrochlorothiazide 12.5 mg 05/31/20 13:00 06/04/20 10:10 Hydrochlorothiazide 12.5 Mg Cap PO 12.5 mg QDAY JOSE Administration Sodium Chloride 1,000 mls @ 125 mls/hr 05/29/20 23:15 06/03/20 15:30 Nacl 0.9% 1000 Ml IV 125 mls/hr DIRECT JOSE Administration Levetiracetam 500 mg 06/05/20 10:00 Levetiracetam 500 Mg/5 Ml Oral Liqd PO BID JOSE Lisinopril 10 mg 05/31/20 13:00 06/04/20 10:10 Lisinopril 10 Mg Tab PO 10 mg QDAY JOSE Administration Lorazepam 1 mg 05/31/20 21:37 06/05/20 07:55 Lorazepam 2 Mg/Ml Vial IV 1 mg Q4H PRN Administration Seizures Lorazepam 2 mg 06/05/20 12:00 Lorazepam 2 Mg/Ml Vial IV Q4H PRN Agitation Magnesium Hydroxide 30 ml 05/29/20 23:03 Magnesium Hydroxide (Mom) Oral Liqd Udc PO Q4H PRN Constipation Mirtazapine 7.5 mg 05/30/20 22:00 06/04/20 22:56 Mirtazapine 15 Mg Tab PO 7.5 mg QHS OJSE Administration Morphine Sulfate 2 mg 05/29/20 23:03 05/31/20 15:55 Morphine 2 Mg/1 Ml Inj IV 2 mg Q4H PRN Administration Pain, Moderate (4-6) Multivitamins 1 each 05/30/20 10:00 06/04/20 10:10 Multivitamins ,Therapeutic Tab PO 1 each QDAY JOSE Administration Ondansetron HCl 4 mg 05/29/20 22:12 Ondansetron 4 Mg/2 Ml Inj IV Q8H PRN Nausea And Vomiting Sodium Chloride 10 ml 05/30/20 10:00 06/04/20 22:57 Sodium Chloride 0.9% 10 Ml Flush Syringe IV 10 ml BID JOSE Administration Sodium Chloride 10 ml 05/29/20 22:12 06/02/20 21:31 Sodium Chloride 0.9% 10 Ml Flush Syringe IV 10 ml PRN PRN Administration LINE FLUSH Thiamine HCl 100 mg 05/30/20 10:00 06/04/20 10:10 Thiamine 100 Mg Tab PO 100 mg QDAY JOSE Administration Nutrition/Malnutrition Assess - Dietary Evaluation Nutrition/Malnutrition Findings: Nutrition Notes Start: 06/02/20 10:12 Freq: Status: Active Protocol: Document 06/04/20 11:04 CW (Rec: 06/04/20 11:13 CW [id number]) Nutrition Notes Initial or Follow up Reassessment Current Diagnosis Stroke Other Pertinent Diagnosis AMS, seizure Current Diet Pureed, cardiac Labs/Tests K 3.5 Pertinent Medications remeron NS at 125 ml/hr Height 5 ft 8 in Weight 70.8 kg [place] Body Weight (kg) 70.00 BMI 23.7 Weight change and time frame -3.6% x 7 days; weight has tendency to fluctuate around this weight Weight Status Appropriate Subjective/Other Information F/U for intakes. Pt remains nonverbal. Per RN and tech, PO intake today is neglible. Pt recieves feeding assistance. Recommend continued encourage during meals. Alternate feeding route may be necessary d/t poor PO intake x5 days. Percent of energy/protein needs met: 0%/0% Burn Absent Trauma Absent Current % PO Negligible Minimum of two criteria No Energy Intake (severe) < or equal to 50% Estimated Energy Requirement > or equal to 5 days #1 Nutrition Diagnosis Inadequate oral intake Diagnosis Progress(for reassessment Continues documentation) Is Patient Ambulatory and/or Out of Bed No REE-([facility]-confined to bed) 4816.464 Calculation Used for Recommendations [facility] Additional Notes Protein: (0.8-1g/kg) 59-74g Fluid: 1 ml/kcal Nutrition Intervention Change Diet Order: Continue Add Supplement/Snack (indicate name/kcal Ensure Enlive daily /protein ) Provides kCal: 350 Provides Protein (gm) 20 Goal #1 Meet at least 75% of protein and energy needs via PO and ONS intakes Anticipated Discharge Needs: Pureed with ONS PRN Follow-Up By: 06/06/20 Additional Comments F/U for intakes, ONS tolerance , and POC
[2020-06-05] MEDS ORDERED: LORazepam 2 MG/ML VIAL IV PRN (12:00)
[2020-06-05] MEDS: levETIRAcetam 500 MG in DEXTROSE 5% IN WATER 100 ML IV SCH ×2 (12:06→22:23)
--- NOTE | 2020-06-05 14:13 | Progress Note ---
Assessment and Plan 50 yo male with recent stroke in 03/2020 with bilateral arm weakness with severe expressive aphasia, seizure d/o, acute on chronic metabolic encephalopathy, depression, PTSD, admitted to the hospitial for notable subacute encephalopathy which the (at bedside) initially attributed to the haldol that was being administered to him at the facility but now with continued encephalopathy. 1. Metabolic Encephalopathy - workup per primary team, iff EEG and MRI are unremarkable for acute findings, recommend CSF evaluation. 2. Subclinical Seizure - awaiting EEG report. 3. Hx of Stroke (?recrudescence) - no acute findings on MR Brain; aspirin 81 mg po qday and statin therapy for a goal ldl of 70. 4. NMS - in the differential diagnosis; consider bromocriptine/dantrolene combination to note for any improvement. 5. Aspiration / Seizure precautions. Evan Manzo MD Neurology Subjective Date of service: 06/05/20 Principal diagnosis: Acute encephalopathy Interval history: Patient underwent MR Brain and EEG. MR Brain reveals no acute findings. EEG report pending. Objective - Vital Sign Vital Signs - 12hr 06/05/20 06/05/20 06/05/20 06:20 07:51 08:05 Temperature 97.9 F 98.3 F Pulse Rate 84 80 62 Pulse Rate [ From Monitor] Respiratory 20 18 Rate Blood Pressure 155/89 142/83 O2 Sat by Pulse 100 100 Oximetry 06/05/20 06/05/20 06/05/20 10:53 11:22 13:00 Temperature 98.2 F Pulse Rate 105 H 69 Pulse Rate [ 62 From Monitor] Respiratory 18 Rate Blood Pressure 117/61 118/76 O2 Sat by Pulse 100 100 Oximetry - Laboratory Findings CBC and BMP: 06/01/20 05:33 06/01/20 05:33 Abnormal Lab Findings: Abnormal Labs 05/29/20 05/29/20 05/30/20 18:13 18:13 04:50 WBC RBC Hgb Hct MCV 97 H 97 H MCH 33 H 33 H RDW 12.9 L 13.0 L Plt Count [place] % (Auto) 9.1 H 9.2 H [place] # (Auto) 0.9 H 0.9 H Seg Neutrophils % Seg Neutrophils # INR Sodium Potassium 3.4 L Chloride BUN 34 H Creatinine Glucose 107 H Total Protein Albumin 05/30/20 05/30/20 06/01/20 04:50 04:50 05:33 WBC 11.4 H RBC 3.31 L Hgb 10.9 L Hct 32.1 L MCV 97 H MCH 33 H RDW 13.1 L Plt Count 131 L [place] % (Auto) [place] # (Auto) Seg Neutrophils % 72.3 H Seg Neutrophils # 8.2 H INR 1.16 H Sodium 146 H Potassium 3.0 L Chloride 110.1 H BUN 32 H Creatinine Glucose Total Protein Albumin 06/01/20 05:33 WBC RBC Hgb Hct MCV MCH RDW Plt Count [place] % (Auto) [place] # (Auto) Seg Neutrophils % Seg Neutrophils # INR Sodium Potassium 3.5 L Chloride 109.8 H BUN Creatinine 0.7 L Glucose Total Protein 5.5 L D Albumin 3.3 L
[2020-06-05] MEDS: D5W/0.45% NACL 1,000 ML IV SCH (14:30)
[2020-06-05 19:37] LABS: Basophils # (Auto) 0.1 K/mm3 (0.0-0.1); Basophils % (Auto) 0.7 % (0.0-1.8); Hematocrit 36.4 % (35.5-45.6); Hemoglobin 12.8 gm/dl (11.8-15.2); Lymphocytes # (Auto) 1.8 K/mm3 (1.2-5.4); Lymphocytes % (Auto) 17.3 % (13.4-35.0); Mean Corpuscular HGB Conc 35 % (32-34); Mean Corpuscular Volume 95 fl (84-94); Monocytes # (Auto) 0.9 K/mm3 (0.0-0.8); Monocytes % (Auto) 8.9 % (0.0-7.3); Platelet Count 196 K/mm3 (140-440); Red Blood Count 3.83 M/mm3 (3.65-5.03); Red Cell Distribution Width 13.2 % (13.2-15.2)
[2020-06-05 19:47] LABS: INR 1.16 (0.87-1.13); Partial Thromboplastin Time 32.4 Sec. (24.2-36.6)
[2020-06-05 19:58] LABS: Alanine Aminotransferase 17 units/L (7-56); Albumin 3.7 g/dL (3.9-5); Blood Urea Nitrogen 15 mg/dL (9-20); Calcium 9.2 mg/dL (8.4-10.2); Hemolysis Index 2
[2020-06-05 20:01] LABS: BUN/Creatinine Ratio 21
[2020-06-05 20:09] LABS: % Iron Saturation 15.08 %
[2020-06-06 06:30] LABS: Basophils # (Auto) 0.1 K/mm3 (0.0-0.1); Basophils % (Auto) 0.9 % (0.0-1.8); Eosinophils # (Auto) 0.1 K/mm3 (0.0-0.4); Eosinophils % (Auto) 0.6 % (0.0-4.3); Hematocrit 35.8 % (35.5-45.6); Hemoglobin 12.3 gm/dl (11.8-15.2); Lymphocytes # (Auto) 1.7 K/mm3 (1.2-5.4); Lymphocytes % (Auto) 18.4 % (13.4-35.0); Mean Corpuscular HGB Conc 34 % (32-34); Mean Corpuscular Volume 97 fl (84-94); Monocytes % (Auto) 10.7 % (0.0-7.3); Platelet Count 175 K/mm3 (140-440); Red Blood Count 3.71 M/mm3 (3.65-5.03); Red Cell Distribution Width 13.3 % (13.2-15.2)
[2020-06-06 06:52] LABS: Alanine Aminotransferase 14 units/L (7-56); Albumin 3.4 g/dL (3.9-5); Blood Urea Nitrogen 16 mg/dL (9-20); Calcium 8.7 mg/dL (8.4-10.2); Hemolysis Index 7
[2020-06-06 06:54] LABS: BUN/Creatinine Ratio 23
[2020-06-06] MEDS: levETIRAcetam 500 MG in DEXTROSE 5% IN WATER 100 ML IV SCH ×2 (09:24→22:52)
--- NOTE | 2020-06-06 10:43 | Progress Note ---
Subjective - Reason for Consult Consult date: 06/06/20 Reason for consult: AMS - Chief Complaint Chief complaint: I attempted to interview the patient today, he is lying in bed awake. He is in restraints. He doesn't respond to any questions. He just continues to stare at me with a blank look. REVIEW OF SYSTEMS ROS cannot be reliably obtained from the patient due to his confusion and somnolence MENTAL STATUS EXAMINATION General Appearance and Behavior: Age appropriate, good hygiene, wearing appropriate clothes, staring, uncooperative with questioning. Cooperation: Withdrawn Psychomotor Behavior: unremarkable and within normal limits Mood: Neutral Affect and affective range: Flat Thought Process:N/A Thought Content: N/A Speech: no speech production Intellectual Functioning: N/A Suicidal Ideation: N/A l Homicidal Ideation: N/A Impulse Control: Impaired Insight and Judgment: Impaired Memory: N/A Attention: Normal, Orientation: Alert Diagnoses Delirium Treatment Plan will defer to primary team and recommend neurology evaluation. MEDICATIONS: Risks, benefits and alternatives of medications discussed with the patient, questions answered and consent obtained from patient. PSYCHOTHERAPY: Supportive psychotherapy provided MEDICAL: Per primary team DELIRIUM PRECAUTIONS: Please re-orient patient frequently, keep lights on during the day, and minimize benzodiazepines and opiates as these medications could worsen patient's confusion. 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 Case discussed with Dr. Arguelles who agrees with current disposition FOLLOW-UP: Will sign off Thank you for the consult. Please contact with any questions and/or concerns. Mental Status Exam - Vital signs Last Vital Signs Temp 98.9 F 06/06/20 08:00 Pulse 82 06/06/20 08:00 Resp 18 06/06/20 08:00 BP 153/61 06/06/20 08:00 Pulse Ox 99 06/06/20 08:00
--- NOTE | 2020-06-06 11:28 | Progress Note ---
Assessment and Plan Assessment and plan: #Acute metabolic encephalopathy versus delirium Patient is alert but nonverbal Psychiatry evaluation appreciated MRI brain is negative for acute pathology. EEG performed. Results pending Doubt NMS as he has no classical signs of fever or muscular rigidity. Continue to hold Haldol. Hold antipsychotics Plan to get a CSF analysis to rule out any other infectious pathology. #CVA ruled out MRI and CT head negative for CVA #History of seizures Continue Keppra Neurology evaluation appreciated MRI brain with and without contrast negative for acute pathology EEG performed - awaiting results. #Dehydration Encourage p.o. intake # Hypokalemia Repleted DVT prophylaxis on heparin and GI prophylaxis History Interval history: 50-year-old male with known history of acute on chronic metabolic encephalopathy, depression, speech impairment, seizure disorder, PTSD was brought to the emergency room today with altered mental status. [facility] a [facility]. Nursing staff at the facility were concerned that patient may have had a seizure. He was given IM Ativan prior to arrival in the emergency room. Records indicates the patient was admitted last month and was diagnosed with acute on chronic metabolic encephalopathy and also PTSD. Patient is a poor historian, most of the history was gotten from the ER physician. Patient is said to be on multiple medications at the skilled facility. Work-up in the emergency room today reveals elevated BUN/creatinine ratio. Patient is being admitted with altered mental status with possible dehydration. 05/30/20 Patient is alert but not oriented Just staring at me In restraints Staring into space 05/31/2020 Patient is alert but not oriented Just staring at me In restraints Staring into space 06/01 Same condition ALert but not oriented Staring into space Addendum I took extensive history from the and reviewed the previous admission from May 07 to the discharge time which was approximately May 14, 2020. Patient was apparently walking and dragging his right lower extremity. Not using walker. But patient has been having persistent expressive aphasia. Able to do his ADLs ~admission May 06 on May 14 patient was transferred to [facility] for [facility]hab. MRI was negative for any acute subacute stroke. Patient was labeled as TIA when he was discharged from [place] but as per patient was having right-sided deficits which are more consistent with cerebrovascular accident but the imaging studies are not showing any infarct. Patient has seizures off and on and is on antiepileptics. Depakote was recommended but not carried through. Will defer to neurology and psychiatry. If cleared by psychiatry and neurology will transfer back to [facility] with a regular follow-up with neurology and psychiatry as outpatient. Patient is otherwise stable except for a low potassium which is being supplemented. 06/02 As per psych--no catatonia Neuro consult appreciated Ordered MRI agai Recommended EEG 06/03. Patient is nonverbal this AM. He was staring at me. He subsequently burst into laughter as I tried to listen to his chest. Psychiatry has already evaluated patient MRI brain with and without contrast and EEG pending Neurology following 06/04. EEG performed. Awaiting results. Neurology to see. Could not get MRI brain yesterday. Will reattempt today. Holding his haldol 06/05. MRI brain is negative for any acute pathology. EEG unofficial read - shows possible encephalopathy. Awaiting neurology reeval. Updated patient's today 06/06. Neurology recommends lumbar puncture. Official EEG report is still pending. Updated patient's today Hospitalist Physical - Physical exam Narrative exam: VITAL SIGNS: Reviewed. GENERAL: Awake HEAD: No signs of head trauma. EYES: Pupils are equal. Extraocular motions intact. MOUTH: Oropharynx is normal. NECK: No adenopathy, no JVD. CHEST: Chest with diminished breath sounds bilaterally. No wheezes, rales, or rhonchi. CARDIAC: normal S1 and S2, without murmurs, gallops, or rubs. ABDOMEN: Soft, non tender and non distended. No rebound or guarding, and no masses palpated. Bowel Sounds normal. MUSCULOSKELETAL: No edema NEUROLOGIC EXAM: Alert but nonverbal. No new focal neurologic deficits noted. Psych exam: Nonverbal SKIN: No obvious lesions - Constitutional Vitals: Temp Pulse Resp BP Pulse Ox 98.9 F 82 18 153/61 99 06/06/20 08:00 06/06/20 08:00 06/06/20 08:00 06/06/20 08:00 06/06/20 08:00 Results - Labs CBC & Chem 7: 06/06/20 04:25 06/06/20 04:25 Labs: Laboratory Last Values WBC 9.4 K/mm3 (4.5-11.0) 06/06/20 04:25 RBC 3.71 M/mm3 (3.65-5.03) 06/06/20 04:25 Hgb 12.3 gm/dl (11.8-15.2) 06/06/20 04:25 Hct 35.8 % (35.5-45.6) 06/06/20 04:25 MCV 97 fl (84-94) H 06/06/20 04:25 MCH 33 pg (28-32) H 06/06/20 04:25 MCHC 34 % (32-34) 06/06/20 04:25 RDW 13.3 % (13.2-15.2) 06/06/20 04:25 Plt Count 175 K/mm3 (140-440) 06/06/20 04:25 Lymph % (Auto) 18.4 % (13.4-35.0) 06/06/20 04:25 [place] % (Auto) 10.7 % (0.0-7.3) H 06/06/20 04:25 Eos % (Auto) 0.6 % (0.0-4.3) 06/06/20 04:25 Baso % (Auto) 0.9 % (0.0-1.8) 06/06/20 04:25 Lymph # (Auto) 1.7 K/mm3 (1.2-5.4) 06/06/20 04:25 [place]ook[place] # (Auto) 1.0 K/mm3 (0.0-0.8) H 06/06/20 04:25 Eos # (Auto) 0.1 K/mm3 (0.0-0.4) 06/06/20 04:25 Baso # (Auto) 0.1 K/mm3 (0.0-0.1) 06/06/20 04:25 Seg Neutrophils % 69.4 % (40.0-70.0) 06/06/20 04:25 Seg Neutrophils # 6.5 K/mm3 (1.8-7.7) 06/06/20 04:25 PT 14.6 Sec. (12.2-14.9) 06/05/20 19:05 INR 1.16 (0.87-1.13) H 06/05/20 19:05 APTT 32.4 Sec. (24.2-36.6) 06/05/20 19:05 Sodium 140 mmol/L (137-145) 06/06/20 04:25 Potassium 3.0 mmol/L (3.6-5.0) L 06/06/20 04:25 Chloride 101.0 mmol/L (98-107) 06/06/20 04:25 Carbon Dioxide 31 mmol/L (22-30) H 06/06/20 04:25 Anion Gap 11 mmol/L 06/06/20 04:25 BUN 16 mg/dL (9-20) 06/06/20 04:25 Creatinine 0.7 mg/dL (0.8-1.3) L 06/06/20 04:25 Estimated GFR > 60 ml/min 06/06/20 04:25 BUN/Creatinine Ratio 23 % 06/06/20 04:25 Glucose 97 mg/dL (75-100) 06/06/20 04:25 POC Glucose 79 mg/dL (70-105) 06/05/20 14:17 Calcium 8.7 mg/dL (8.4-10.2) 06/06/20 04:25 Iron 27 ug/dL (49-181) L 06/05/20 19:05 TIBC 179 mcg/dL (250-450) L 06/05/20 19:05 % Saturation 15.08 % 06/05/20 19:05 Transferrin 157 mg/dl (180-329) L 06/05/20 19:05 Total Bilirubin 0.90 mg/dL (0.1-1.2) 06/06/20 04:25 AST 29 units/L (5-40) 06/06/20 04:25 ALT 14 units/L (7-56) 06/06/20 04:25 Alkaline Phosphatase 88 units/L (35-129) 06/06/20 04:25 Total Creatine Kinase 194 units/L (55-170) H 06/05/20 19:05 C-Reactive Protein 1.80 mg/dL (0.00-1.30) H 06/05/20 19:05 Total Protein 6.0 g/dL (6.3-8.2) L 06/06/20 04:25 Albumin 3.4 g/dL (3.9-5) L 06/06/20 04:25 Albumin/Globulin Ratio 1.3 % 06/06/20 04:25 Procalcitonin < 0.05 ng/mL (<0.15) 06/05/20 19:05 TSH 0.709 mlU/mL (0.270-4.200) 05/29/20 18:13 Urine Color Yellow (Yellow) 05/29/20 21: Urine Turbidity Clear (Clear) 05/29/20 21: Urine pH 6.0 (5.0-7.0) 05/29/20 21: Ur Specific [place] 1.026 (1.003-1.030) 05/29/20 21: Urine Protein 30 mg/dl mg/dL (Negative) 05/29/20 21: Urine Glucose (UA) Neg mg/dL (Negative) 05/29/20 21: Urine Ketones 80 mg/dL (Negative) 05/29/20: Urine Blood Neg (Negative) 05/29/20: Urine Nitrite Neg (Negative) 05/29/20 21: Urine Bilirubin Neg (Negative) 05/29/20: Urine Urobilinogen 4.0 mg/dL (<2.0) 05/29/20 21: Ur Leukocyte Esterase Neg (Negative) 05/29/20 21: Urine WBC (Auto) 1.0 /HPF (0.0-6.0) 05/29/20: Urine RBC (Auto) < 1.0 /HPF (0.0-6.0) 05/29/20: U Epithel Cells (Auto) < 1.0 /HPF (0-13.0) 05/29/20 21: Urine Mucus 2+ /HPF 05/29/20 21:28 Tom/IV: Voiding Method Condom Catheter Active Medications - Current Medications Current Medications: Generic Name Dose Route Start Last Admin Trade Name Freq PRN Reason Stop Dose Admin Acetaminophen 650 mg 05/29/20 22:12 05/31/20 09:44 Acetaminophen 325 Mg Tab PO 650 mg Q4H PRN Administration Pain MILD(1-3)/Fever >100.5/VAL[place] Aspirin 300 mg 06/06/20 10:00 Aspirin 300 Mg Rect Supp AK QDAY JOSE Atorvastatin Calcium 40 mg 05/30/20 22:00 06/05/20 22:32 Atorvastatin 40 Mg Tab PO Not Given QHS JOSE Enoxaparin Sodium 40 mg 06/06/20 22:00 Enoxaparin 40 Mg/0.4 Ml Inj SUB-Q QDAY@2200 [facility] Protocol Escitalopram Oxalate 10 mg 05/30/20 10:00 06/05/20 09:26 Escitalopram 10 Mg Tab PO Not Given DAILY JOSE Folic Acid 1 mg 05/30/20 10:00 06/05/20 09:25 Folic Acid 1 Mg Tab PO Not Given QDAY [facility] Hydrochlorothiazide 12.5 mg 05/31/20 13:00 06/05/20 09:26 Hydrochlorothiazide 12.5 Mg Cap PO Not Given QDAY [facility] Levetiracetam 500 mg/ Dextrose 105 mls @ 400 mls/hr 06/05/20 12:30 06/06/20 09:24 IV 400 mls/hr Q12HR JOSE Administration Dextrose/Sodium Chloride 1,000 mls @ 75 mls/hr 06/05/20 15:00 06/05/20 14:30 D5/0.45ns IV 75 mls/hr DIRECT JOSE Administration Lisinopril 10 mg 05/31/20 13:00 06/05/20 09:28 Lisinopril 10 Mg Tab PO Not Given QDAY [facility] Lorazepam 1 mg 05/31/20 21:37 06/05/20 22:23 Lorazepam 2 Mg/Ml Vial IV 1 mg Q4H PRN Administration Seizures Lorazepam 2 mg 06/05/20 12:00 06/06/20 10:20 Lorazepam 2 Mg/Ml Vial IV 2 mg Q4H PRN Administration Agitation Magnesium Hydroxide 30 ml 05/29/20 23:03 Magnesium Hydroxide (Mom) Oral Liqd Udc PO Q4H PRN Constipation Morphine Sulfate 2 mg 05/29/20 23:03 05/31/20 15:55 Morphine 2 Mg/1 Ml Inj IV 2 mg Q4H PRN Administration Pain, Moderate (4-6) Multivitamins 1 each 05/30/20 10:00 06/05/20 09:27 Multivitamins ,Therapeutic Tab PO Not Given QDAY [facility] Ondansetron HCl 4 mg 05/29/20 22:12 Ondansetron 4 Mg/2 Ml Inj IV Q8H PRN Nausea And Vomiting Sodium Chloride 10 ml 05/30/20 10:00 06/05/20 22:24 Sodium Chloride 0.9% 10 Ml Flush Syringe IV 10 ml BID JOSE Administration Sodium Chloride 10 ml 05/29/20 22:12 06/02/20 21:31 Sodium Chloride 0.9% 10 Ml Flush Syringe IV 10 ml PRN PRN Administration LINE FLUSH Thiamine HCl 100 mg 05/30/20 10:00 06/05/20 09:27 Thiamine 100 Mg Tab PO Not Given QDAY JOSE Nutrition/Malnutrition Assess - Dietary Evaluation Nutrition/Malnutrition Findings: Nutrition Notes Start: 06/02/20 10:12 Freq: Status: Active Protocol: Document 06/04/20 11:04 CW (Rec: 06/04/20 11:13 CW [email or web address]) Nutrition Notes Initial or Follow up Reassessment Current Diagnosis Stroke Other Pertinent Diagnosis AMS, seizure Current Diet Pureed, cardiac Labs/Tests K 3.5 Pertinent Medications remeron NS at 125 ml/hr Height 5 ft 8 in Weight 70.8 kg [place] Body Weight (kg) 70.00 BMI 23.7 Weight change and time frame -3.6% x 7 days; weight has tendency to fluctuate around this weight Weight Status Appropriate Subjective/Other Information F/U for intakes. Pt remains nonverbal. Per RN and tech, PO intake today is neglible. Pt recieves feeding assistance. Recommend continued encourage during meals. Alternate feeding route may be necessary d/t poor PO intake x5 days. Percent of energy/protein needs met: 0%/0% Burn Absent Trauma Absent Current % PO Negligible Minimum of two criteria No Energy Intake (severe) < or equal to 50% Estimated Energy Requirement > or equal to 5 days #1 Nutrition Diagnosis Inadequate oral intake Diagnosis Progress(for reassessment Continues documentation) Is Patient Ambulatory and/or Out of Bed No REE-([facility] [place]-confined to bed) 8067.609 Calculation Used for Recommendations [facility] Additional Notes Protein: (0.8-1g/kg) 59-74g Fluid: 1 ml/kcal Nutrition Intervention Change Diet Order: Continue Add Supplement/Snack (indicate name/kcal Ensure Enlive daily /protein ) Provides kCal: 350 Provides Protein (gm) 20 Goal #1 Meet at least 75% of protein and energy needs via PO and ONS intakes Anticipated Discharge Needs: Pureed with ONS PRN Follow-Up By: 06/06/20 Additional Comments F/U for intakes, ONS tolerance , and POC
--- NOTE | 2020-06-06 12:03 | Fluoroscopy Report ---
Fluoroscopic-guided lumbar puncture INDICATION: Encephalopathy FINDINGS: Before beginning procedure I personally called Ms. Alberto and obtained informed consent. Risk and benefits were explained. The patient was prepped and draped in sterile fashion. Subcutaneous lidocaine was utilized overlying the lower back at L2-L3. Subcutaneous lidocaine was used. A 22-gaug e spinal needle was used for access CSF. 10 cc of CSF which was clear was collected. 4 separate tubes were sent to lab. IMPRESSION: Successful lumbar puncture without complication. Signer Name: Vijay Garcia MD Signed: 06/06/2020 11:58 AM Workstation Name: [id number]
[2020-06-06 12:24] LABS: Glucose,CSF 71 mg/dL
[2020-06-06 12:39] LABS: Appearance,CSF Clear; Red Blood Cell,CSF 1 /mm3 (0-0); White Blood Cell,CSF 2 /mm3 (1-10)
[2020-06-06] MEDS: FOLIC ACID 1 MG TAB PO SCH (12:52)
[2020-06-06] MEDS: ASPIRIN 300 MG RECT SUPP PR SCH (12:52)
[2020-06-06] MEDS: THIAMINE 100 MG TAB PO SCH (12:53)
[2020-06-06] MEDS: MULTIVITAMINS ,THERAPEUTIC TAB PO SCH (12:53)
[2020-06-06] MEDS: hydroCHLOROthiazide 12.5 MG CAP PO SCH (12:53)
[2020-06-06] MEDS: LISINOPRIL 10 MG TAB PO SCH (12:53)
[2020-06-06] MEDS: ESCITALOPRAM 10 MG TAB PO SCH (12:53)
[2020-06-06] MEDS: POTASSIUM CHLORIDE 10 MEQ 10 MEQ/100 ML BAG IV SCH ×6 (13:00→19:04)
[2020-06-06 13:12] LABS: Total Cells Counted 31 /mm3
[2020-06-06] MEDS ORDERED: DEXTROSE 50% IN WATER (25GM) 50 ML SYRINGE IV PRN (14:00)
[2020-06-06] MEDS ORDERED: DANTROLENE SODIUM 20 MG VIAL IV ONE (19:03)
[2020-06-06] MEDS ORDERED: ENOXAPARIN 40 MG/0.4 ML INJ SUB-Q SCH (22:00)
[2020-06-07 06:07] LABS: Basophils % (Auto) 0.3 % (0.0-1.8); Hematocrit 36.7 % (35.5-45.6); Hemoglobin 12.6 gm/dl (11.8-15.2); Lymphocytes # (Auto) 1.3 K/mm3 (1.2-5.4); Lymphocytes % (Auto) 8.8 % (13.4-35.0); Mean Corpuscular HGB Conc 34 % (32-34); Mean Corpuscular Volume 96 fl (84-94); Monocytes # (Auto) 1.2 K/mm3 (0.0-0.8); Platelet Count 190 K/mm3 (140-440); Red Blood Count 3.81 M/mm3 (3.65-5.03); Red Cell Distribution Width 13.3 % (13.2-15.2)
[2020-06-07 06:27] LABS: Alanine Aminotransferase 14 units/L (7-56); Albumin 3.4 g/dL (3.9-5); Blood Urea Nitrogen 8 mg/dL (9-20); Calcium 8.9 mg/dL (8.4-10.2); Hemolysis Index 0
[2020-06-07 06:29] LABS: BUN/Creatinine Ratio 11
[2020-06-07] MEDS: levETIRAcetam 500 MG/5 ML ORAL LIQD PO SCH (09:27)
[2020-06-07] MEDS: FOLIC ACID 1 MG TAB PO SCH (10:35)
[2020-06-07] MEDS: LISINOPRIL 10 MG TAB PO SCH (10:35)
[2020-06-07] MEDS: hydroCHLOROthiazide 12.5 MG CAP PO SCH (10:35)
[2020-06-07] MEDS: ESCITALOPRAM 10 MG TAB PO SCH (10:36)
[2020-06-07] MEDS: THIAMINE 100 MG TAB PO SCH (10:36)
[2020-06-07] MEDS: MULTIVITAMINS ,THERAPEUTIC TAB PO SCH (10:37)
[2020-06-07] MEDS: D5W/0.45% NACL 1,000 ML IV SCH (10:38)
[2020-06-07] MEDS: ASPIRIN 300 MG RECT SUPP PR SCH (10:38)
[2020-06-07] MEDS: levETIRAcetam 500 MG in DEXTROSE 5% IN WATER 100 ML IV SCH (10:38)
--- NOTE | 2020-06-07 11:09 | Progress Note ---
Assessment and Plan Assessment and plan: #Acute metabolic encephalopathy versus delirium Patient is nonverbal Psychiatry evaluation appreciated MRI brain is negative for acute pathology. EEG - severe encephalopathy- no seizures. Doubt NMS as he has no classical signs of fever or muscular rigidity. Continue to hold Haldol. Hold antipsychotics Plan to get a CSF analysis to rule out any other infectious pathology. Results negative for any intracranial infection #CVA ruled out MRI and CT head negative for CVA #History of seizures Continue [facility] Neurology evaluation appreciated MRI brain with and without contrast negative for acute pathology EEG performed -No seizure. +encephalopathy #Dehydration Patient is not eating. Will place NG tube for feeding # Hypokalemia Repleted #Leukocytosis Need to ensure he is not aspirating Will get xr chest. UA already performed at admission DVT prophylaxis on heparin and GI prophylaxis History Interval history: 50-year-old male with known history of acute on chronic metabolic encephalopathy, depression, speech impairment, seizure disorder, PTSD was brought to the emergency room today with altered mental status. [facility] Nursing staff at the facility were concerned that patient may have had a seizure. He was given IM Ativan prior to arrival in the emergency room. Records indicates the patient was admitted last month and was diagnosed with acute on chronic metabolic encephalopathy and also PTSD. Patient is a poor historian, most of the history was gotten from the ER physician. Patient is said to be on multiple medications at the skilled facility. Work-up in the emergency room today reveals elevated BUN/creatinine ratio. Patient is being admitted with altered mental status with possible dehydration. 05/30/20 Patient is alert but not oriented Just staring at me In restraints Staring into space 05/31/2020 Patient is alert but not oriented Just staring at me In restraints Staring into space 06/01 Same condition ALert but not oriented Staring into space Addendum I took extensive history from the and reviewed the previous admission from May 07 to the discharge time which was approximately May 14, 2020. Patient was apparently walking and dragging his right lower extremity. Not using walker. But patient has been having persistent expressive aphasia. Able to do his ADLs ~admission May 06 on May 14 patient was transferred to [facility] for rehab. MRI was negative for any acute subacute stroke. Patient was labeled as TIA when he was discharged from [facility] but as per patient was having right-sided deficits which are more consistent with cerebrovascular accident but the imaging studies are not showing any infarct. Patient has seizures off and on and is on antiepileptics. Depakote was recommended but not carried through. Will defer to neurology and psychiatry. If cleared by psychiatry and neurology will transfer back to [facility] with a regular follow-up with neurology and psychiatry as outpatient. Patient i s otherwise stable except for a low potassium which is being supplemented. 06/02 As per psych--no catatonia Neuro consult appreciated [facility] Recommended EEG 06/03. Patient is nonverbal this AM. He was staring at me. He subsequently burst into laughter as I tried to listen to his chest. Psychiatry has already evaluated patient MRI brain with and without contrast and EEG pending Neurology following 06/04. EEG performed. Awaiting results. Neurology to see. Could not get MRI brain yesterday. Will reattempt today. Holding his haldol 06/05. MRI brain is negative for any acute pathology. EEG unofficial read - shows possible encephalopathy. Awaiting neurology reeval. Updated patient's today 06/06. Neurology recommends lumbar puncture. Official EEG report is still pending. Updated patient's today 06/07. Official EEG report shows no seizures but encephalopathy. Discussed case with neurology. Advised CSF analysis. Results does not show any infectious etiology at this time. Saw and examined patient at bedside this morning. Patient is still awake but stares. Remains aphasic. Gave a trial of dantrolene per neurology recs but no effect. Doubt NMS. Due to persistent symptoms and negative results, will put a call to another facility - [place] or [facility] for complete neurology evaluation as no neurology available here this weekend. Discussed with [facility] neurology - only gave recommendations- try thiamine. Ordered thiamine 500mg q8hr x2 day. Called [facility] and awaiting response. Patient has not eaten in days. Reviewed labs today. WBC bumped to 15. Chest xray is negative. Procalcitonin is 0.05. Will start him on tube feeds as he is not able to eat. I believe patient will benefit from a continuous EEG monitoring at this time due to persistent aphasia and mental status which has not not improved. At this point, we have no neurology this weekend. Discussed with neurologist and IMS at [facility] who have kindly accepted patient for transfer for continuous EEG and neurology evaluation. I have updated patients who agrees with transfer. His COVID -19 test is negative. Hospitalist Physical - Physical exam Narrative exam: VITAL SIGNS: Reviewed. GENERAL: Awake HEAD: No signs of head trauma. EYES: Pupils are equal. Extraocular motions intact. MOUTH: Oropharynx is normal. NECK: No adenopathy, no JVD. CHEST: Chest with diminished breath sounds bilaterally. No wheezes, rales, or rhonchi. CARDIAC: normal S1 and S2, without murmurs, gallops, or rubs. ABDOMEN: Soft, non tender and non distended. No rebound or guarding, and no masses palpated. Bowel Sounds normal. MUSCULOSKELETAL: No edema NEUROLOGIC EXAM: Alert but nonverbal. No new focal neurologic deficits noted. Psych exam: Nonverbal SKIN: No obvious lesions - Constitutional Vitals: Temp Pulse Resp BP Pulse Ox 97.4 F L 103 H 18 141/89 98 06/07/20 08:34 06/07/20 10:35 06/07/20 08:34 06/07/20 10:35 06/07/20 08:34 Results - Labs CBC & Chem 7: 06/07/20 04:53 06/07/20 04:53 Labs: Laboratory Last Values WBC 15.0 K/mm3 (4.5-11.0) H 06/07/20 04:53 RBC 3.81 M/mm3 (3.65-5.03) 06/07/20 04:53 Hgb 12.6 gm/dl (11.8-15.2) 06/07/20 04:53 Hct 36.7 % (35.5-45.6) 06/07/20 04:53 MCV 96 fl (84-94) H 06/07/20 04:53 MCH 33 pg (28-32) H 06/07/20 04:53 MCHC 34 % (32-34) 06/07/20 04:53 RDW 13.3 % (13.2-15.2) 06/07/20 04:53 Plt Count 190 K/mm3 (140-440) 06/07/20 04:53 Lymph % (Auto) 8.8 % (13.4-35.0) L 06/07/20 04:53 [place] % (Auto) 8.0 % (0.0-7.3) H 06/07/20 04:53 Eos % (Auto) 0.0 % (0.0-4.3) 06/07/20 04:53 Baso % (Auto) 0.3 % (0.0-1.8) 06/07/20 04:53 Lymph # (Auto) 1.3 K/mm3 (1.2-5.4) 06/07/20 04:53 [place] # (Auto) 1.2 K/mm3 (0.0-0.8) H 06/07/20 04:53 Eos # (Auto) 0.0 K/mm3 (0.0-0.4) 06/07/20 04:53 Baso # (Auto) 0.0 K/mm3 (0.0-0.1) 06/07/20 04:53 Seg Neutrophils % 82.9 % (40.0-70.0) H 06/07/20 04:53 Seg Neutrophils # 12.5 K/mm3 (1.8-7.7) H 06/07/20 04:53 PT 14.6 Sec. (12.2-14.9) 06/05/20 19:05 INR 1.16 (0.87-1.13) H 06/05/20 19:05 APTT 32.4 Sec. (24.2-36.6) 06/05/20 19:05 Sodium 137 mmol/L (137-145) 06/07/20 04:53 Potassium 3.5 mmol/L (3.6-5.0) L 06/07/20 04:53 Chloride 100.5 mmol/L (98-107) 06/07/20 04:53 Carbon Dioxide 28 mmol/L (22-30) 06/07/20 04:53 Anion Gap 12 mmol/L 06/07/20 04:53 BUN 8 mg/dL (9-20) L 06/07/20 04:53 Creatinine 0.7 mg/dL (0.8-1.3) L 06/07/20 04:53 Estimated GFR > 60 ml/min 06/07/20 04:53 BUN/Creatinine Ratio 11 % 06/07/20 04:53 Glucose 100 mg/dL (75-100) 06/07/20 04:53 POC Glucose 84 mg/dL (70-105) 06/06/20 17:18 Calcium 8.9 mg/dL (8.4-10.2) 06/07/20 04:53 Iron 27 ug/dL (49-181) L 06/05/20 19:05 TIBC 179 mcg/dL (250-450) L 06/05/20 19:05 % Saturation 15.08 % 06/05/20 19:05 Transferrin 157 mg/dl (180-329) L 06/05/20 19:05 Total Bilirubin 1.30 mg/dL (0.1-1.2) H 06/07/20 04:53 AST 30 units/L (5-40) 06/07/20 04:53 ALT 14 units/L (7-56) 06/07/20 04:53 Alkaline Phosphatase 97 units/L (35-129) 06/07/20 04:53 Total Creatine Kinase 194 units/L (55-170) H 06/05/20 19:05 C-Reactive Protein 1.80 mg/dL (0.00-1.30) H 06/05/20 19:05 Total Protein 6.3 g/dL (6.3-8.2) 06/07/20 04:53 Albumin 3.4 g/dL (3.9-5) L 06/07/20 04:53 Albumin/Globulin Ratio 1.2 % 06/07/20 04:53 Procalcitonin < 0.05 ng/mL (<0.15) 06/05/20 19:05 TSH 0.709 mlU/mL (0.270-4.200) 05/29/20 18:13 Urine Color Yellow (Yellow) 05/29/20 21:28 Urine Turbidity Clear (Clear) 05/29/20 21:28 Urine pH 6.0 (5.0-7.0) 05/29/20 21:28 Ur Specific [place] 1.026 (1.003-1.030) 05/29/20 21:28 Urine Protein 30 mg/dl mg/dL (Negative) 05/29/20 21:28 Urine Glucose (UA) Neg mg/dL (Negative) 05/29/20 21:28 Urine Ketones 80 mg/dL (Negative) 05/29/20 21:28 Urine Blood Neg (Negative) 05/29/20 21:28 Urine Nitrite Neg (Negative) 05/29/20 21:28 Urine Bilirubin Neg (Negative) 05/29/20 21:28 Urine Urobilinogen 4.0 mg/dL (<2.0) 05/29/20 21:28 Ur Leukocyte Esterase Neg (Negative) 05/29/20 21:28 Urine WBC (Auto) 1.0 /HPF (0.0-6.0) 05/29/20 21:28 Urine RBC (Auto) < 1.0 /HPF (0.0-6.0) 05/29/20 21:28 U Epithel Cells (Auto) < 1.0 /HPF (0-13.0) 05/29/20 21:28 Urine Mucus 2+ /HPF 05/29/20 21:28 CSF Appearance Clear 06/06/20 11:15 CSF Color Colorless 06/06/20 11:15 CSF WBC 2 /mm3 (1-10) 06/06/20 11:15 CSF RBC 1 /mm3 (0-0) 06/06/20 11:15 CSF Seg Neutrophils Not Reportable 06/06/20 11:15 CSF Lymphocytes % 51.6 % (40-80) 06/06/20 11:15 CSF Reactive Lymphs Not Reportable 06/06/20 11:15 CSF Monocytes % 48.4 % (15-45) 06/06/20 11:15 CSF Eosinophils % Not Reportable 06/06/20 11:15 CSF Basophils Not Reportable 06/06/20 11:15 CSF Pathologist Review C 06/06/20 11:15 CSF Glucose 71 mg/dL 06/06/20 11:15 CSF Total Protein 41 mg/dL 06/06/20 11:15 Microbiology: Microbiology 06/06/20 11:15 Cerebral Spinal Fluid CSF Culture - Preliminary Tom/IV: Voiding Method Condom Catheter Active Medications - Current Medications Current Medications: Generic Name Dose Route Start Last Admin Trade Name Freq PRN Reason Stop Dose Admin Acetaminophen 650 mg 05/29/20 22:12 05/31/20 09:44 Acetaminophen 325 Mg Tab PO 650 mg Q4H PRN Administration Pain MILD(1-3)/Fever >100.5/VALDES Aspirin 300 mg 06/06/20 10:00 06/07/20 10:38 Aspirin 300 Mg Rect Supp NM Not Given QDAY JOSE Atorvastatin Calcium 40 mg 05/30/20 22:00 06/06/20 22:52 Atorvastatin 40 Mg Tab PO 40 mg QHS JOSE Administration Dextrose 25 ml 06/06/20 14:00 06/06/20 14:05 Dextrose 50% In Water (25gm) 50 Ml Syringe IV 25 ml Q30MIN PRN Administration Hypoglycemia Protocol Enoxaparin Sodium 40 mg 06/06/20 22:00 06/06/20 22:52 Enoxaparin 40 Mg/0.4 Ml Inj SUB-Q 40 mg QDAY@2200 JOSE Administration Protocol Escitalopram Oxalate 10 mg 05/30/20 10:00 06/07/20 10:36 Escitalopram 10 Mg Tab PO 10 mg DAILY JOSE Administration Folic Acid 1 mg 05/30/20 10:00 06/07/20 10:35 Folic Acid 1 Mg Tab PO 1 mg QDAY JOSE Administration Hydrochlorothiazide 12.5 mg 05/31/20 13:00 06/07/20 10:35 Hydrochlorothiazide 12.5 Mg Cap PO 12.5 mg QDAY JOSE Administration Levetiracetam 500 mg/ Dextrose 105 mls @ 400 mls/hr 06/05/20 12:30 06/07/20 10:38 IV 400 mls/hr Q12HR JOSE Administration Dextrose/Sodium Chloride 1,000 mls @ 75 mls/hr 06/05/20 15:00 06/07/20 10:38 D5/0.45ns IV 75 mls/hr DIRECT JOSE Administration Lisinopril 10 mg 05/31/20 13:00 06/07/20 10:35 Lisinopril 10 Mg Tab PO 10 mg QDAY JOSE Administration Lorazepam 1 mg 05/31/20 21:37 06/05/20 22:23 Lorazepam 2 Mg/Ml Vial IV 1 mg Q4H PRN Administration Seizures Lorazepam 2 mg 06/05/20 12:00 06/06/20 10:20 Lorazepam 2 Mg/Ml Vial IV 2 mg Q4H PRN Administration Agitation Magnesium Hydroxide 30 ml 05/29/20 23:03 06/07/20 10:37 Magnesium Hydroxide (Mom) Oral Liqd Udc PO 30 ml Q4H PRN Administration Constipation Morphine Sulfate 2 mg 05/29/20 23:03 05/31/20 15:55 Morphine 2 Mg/1 Ml Inj IV 2 mg Q4H PRN Administration Pain, Moderate (4-6) Multivitamins 1 each 05/30/20 10:00 06/07/20 10:37 Multivitamins ,Therapeutic Tab PO 1 each QDAY JOSE Administration Ondansetron HCl 4 mg 05/29/20 22:12 Ondansetron 4 Mg/2 Ml Inj IV Q8H PRN Nausea And Vomiting Sodium Chloride 10 ml 05/30/20 10:00 06/07/20 10:37 Sodium Chloride 0.9% 10 Ml Flush Syringe IV 10 ml BID JOSE Administration Sodium Chloride 10 ml 05/29/20 22:12 06/02/20 21:31 Sodium Chloride 0.9% 10 Ml Flush Syringe IV 10 ml PRN PRN Administration LINE FLUSH Thiamine HCl 100 mg 05/30/20 10:00 06/07/20 10:36 Thiamine 100 Mg Tab PO 100 mg QDAY JOSE Administration Nutrition/Malnutrition Assess - Dietary Evaluation Nutrition/Malnutrition Findings: Nutrition Notes Start: 06/02/20 10:12 Freq: Status: Active Protocol: Document 06/06/20 11:36 (Rec: 06/06/20 11:41 [id number]) Nutrition Notes Initial or Follow up Reassessment Current Diagnosis Stroke Other Pertinent Diagnosis AMS, seizure Current Diet Pureed, cardiac Labs/Tests K 3 Pertinent Medications D5 1/2 NS at 75 ml/hr Height 5 ft 8 in Weight 69.9 kg [place] Body Weight (kg) 70.00 BMI 23.4 Weight change and time frame wt loss noted, will follow trends Weight Status Appropriate Subjective/Other Information FU for intakes. Per RN, pt is not eating, drinking or taking medications. Tried giving pt juice and he refused. Multiple ONS in room. Recommend tube feeding if pt does not eat tomorrow. Percent of energy/protein needs met: 0%/0% Burn Absent Trauma Absent Current % PO Negligible Minimum of two criteria No Energy Intake (severe) < or equal to 50% Estimated Energy Requirement > or equal to 5 days #1 Nutrition Diagnosis Inadequate oral intake Diagnosis Progress(for reassessment Continues documentation) Is patient on ventilator? No Is Patient Ambulatory and/or Out of Bed No REE-([facility]-confined to bed) 0280.160 Calculation Used for Recommendations [facility] Additional Notes Protein: (0.8-1g/kg) 59-74g Fluid: 1 ml/kcal Nutrition Intervention Change Diet Order: Continue Add Supplement/Snack (indicate name/kcal D/C /protein ) Goal #1 Meet at least 75% of protein and energy needs via PO and ONS intakes Anticipated Discharge Needs: Unable to determine at this time Follow-Up By: 06/09/20 Additional Comments FU for intakes and plan of care
--- NOTE | 2020-06-07 11:46 | XRay Report ---
CHEST 1 VIEW 06/07/2020 10:37 AM INDICATION / CLINICAL INFORMATION: leukocytosis. COMPARISON: 05/06/20 FINDINGS: SUPPORT DEVICES: None. HEART / MEDIASTINUM: No significant abnormality. LUNGS / PLEURA: No significant pulmonary or pleural abnormality. No pneumothorax. ADDITIONAL FINDINGS: No significant additional findings. IMPRESSION: 1. No acute findings. No change. Signer Name: Paul Cano MD Signed: 06/07/2020 11:42 AM Workstation Name: [id number]
[2020-06-07] MEDS ORDERED: THIAMINE 500 MG in SODIUM CHLORIDE 0.9% 50 ML IV SCH (14:00)
--- NOTE | 2020-06-07 16:35 | Discharge Summary ---
Providers - Providers Date of Admission: 05/30/20 15:00 Date of discharge: 06/07/20 Attending physician: PATRICE BARROS 05/29/20 23:03 Consult to Physician [CONS] Routine Comment: Consulting Provider: JULES GUTHRIE Physician Instructions: Reason For Exam: Encephalopathy. H/O Seizures 05/30/20 14:48 Physical Therapy Evaluation and Treat [CONS] Routine Comment: SANDRA placement Reason For Exam: Debility 05/30/20 14:50 Occupational Therapy Evaluate and Treat [CONS] Routine Comment: SANDRA placement Reason For Exam: Debility 05/31/20 12:38 Consult to Physician [CONS] Routine Comment: Consulting Provider: VICENTA ROJAS Physician Instructions: Reason For Exam: Possible catatonic state 05/31/20 12:39 Consult to Mental Health [CONS] Routine Reason For Exam: Possible catatonic state 06/02/20 11:24 Consult to Physician [CONS] Routine Comment: Consulting Provider: CJ RDZ III Physician Instructions: Reason For Exam: CVA 06/05/20 10:53 Consult to Physician [CONS] Routine Comment: Consulting Provider: JULES GUTHRIE Physician Instructions: Reason For Exam: Reevaluation. EEG performed 06/07/20 11:27 Consult to Dietitian/Nutrition [CONS] Routine Physician Instructions: Reason For Exam: Reason for Consult: Write/Manage Tube Feeding Primary care physician: LAKEISHA MADDEN Hospitalization Condition: Stable Hospital course: 50-year-old male with known history of acute on chronic metabolic encephalopathy, depression, speech impairment, seizure disorder, PTSD was brought to the emergency room today with altered mental status. Patient is a resident of [facility]. Nursing staff at the facility were concerned that patient may have had a seizure. He was given IM Ativan prior to arrival in the emergency room. Records indicates the patient was admitted last month and was diagnosed with acute on chronic metabolic encephalopathy and also PTSD. Patient is a poor historian, most of the history was gotten from the ER physician. Patient is said to be on multiple medications at the skilled facility. Work-up in the emergency room today reveals elevated BUN/creatinine ratio. Patient is being admitted with altered mental status with possible dehydration. 05/30/20 Patient is alert but not oriented. Just staring at me. In restraints. Staring into space 05/31/2020 Patient is alert but not oriented. Just staring at me. In restraints. Staring into space 06/01 Same condition. ALert but not oriented. Staring into space Addendum I took extensive history from the and reviewed the previous admission from May 07 to the discharge time which was approximately May 14, 2020. Patient was apparently walking and dragging his right lower extremity. Not using walker. But patient has been having persistent expressive aphasia. Able to do his ADLs ~admission May 06 on May 14 patient was transferred to [facility] for rehab. MRI was negative for any acute subacute stroke. Patient was labeled as TIA when he was discharged from [facility] but as per patient was having right-sided deficits which are more consistent with cerebrovascular accident but the imaging studies are not showing any infarct. Patient has seizures off and on and is on antiepileptics. Depakote was recommended but not carried through. Will defer to neurology and psychiatry. If cleared by psychiatry and neurology will transfer back to [facility] with a regular follow-up with neurology and psychiatry as outpatient. Patient is otherwise stable except for a low potassium which is being supplemented. 06/02. As per psych--no catatonia. Neuro consult appreciated. Ordered MRI brain. Recommended EEG 06/03. Patient is still nonverbal this AM. He was staring at me. He subsequently burst into laughter as I tried to listen to his chest. Psychiatry has already evaluated patient and no additional input from team and so signed off. MRI brain with and without contrast and EEG pending. Neurology following 06/04. EEG performed. Awaiting results. Neurology to see. Could not get MRI brain yesterday. Will reattempt today. Holding his haldol 06/05. MRI brain is negative for any acute pathology. EEG unofficial read - shows possible encephalopathy. Awaiting neurology reeval. Updated patient's today 06/06. Neurology recommends lumbar puncture. Official EEG report is still pending. Updated patient's today 06/07. Official EEG report shows no seizures but encephalopathy. Discussed case with neurology. Advised CSF analysis. Results does not show any infectious etiology at this time. Saw and examined patient at bedside this morning. Patient is still awake but stares. Remains aphasic. Gave a trial of dantrolene per neurology recs but no effect. Doubt NMS. Due to persistent symptoms and negative results, will put a call to another facility - [place] or [facility] for complete neurology evaluation as no neurology available here this weekend. Discussed with [place] neurology - only gave recommendations- try thiamine. Ordered thiamine 500mg q8hr x2 day. Called [facility] and awaiting response. Patient has not eaten in days. Reviewed labs today. WBC bumped to 15. Chest xray is negative. Procalcitonin is 0.05. Will start him on tube feeds as he is not able to eat. I believe patient will benefit from a continuous EEG monitoring at this time due to persistent aphasia and mental status which has not not improved. At this point, we have no neurology this weekend. Discussed with neurologist and IMS at [facility] who have kindly accepted patient for transfer for continuous EEG and neurology evaluation. I have updated patients who agrees with transfer. His COVID -19 test is negative. Disposition: [id number]/TX-70 ANOTHER TYPE HLTHCARE Final Discharge Diagnosis (Prints w/discharge instructions): Aphasia. Metabolic encephalopathy - ?possible seizures Time spent for discharge: 50 mins - Discharge Diagnoses (1) Aphasia Status: Acute (2) Seizure Status: Acute Core Measure Documentation - Palliative Care Palliative Care/ Comfort Measures: Not Applicable - Core Measures Any of the following diagnoses?: none Exam - Physical Exam Narrative exam: VITAL SIGNS: Reviewed. GENERAL: Awake HEAD: No signs of head trauma. EYES: Pupils are equal. Extraocular motions intact. MOUTH: Oropharynx is normal. NECK: No adenopathy, no JVD. CHEST: Chest with diminished breath sounds bilaterally. No wheezes, rales, or rhonchi. CARDIAC: normal S1 and S2, without murmurs, gallops, or rubs. ABDOMEN: Soft, non tender and non distended. No rebound or guarding, and no masses palpated. Bowel Sounds normal. MUSCULOSKELETAL: No edema NEUROLOGIC EXAM: Alert but nonverbal. No new focal neurologic deficits noted. Psych exam: Nonverbal SKIN: No obvious lesions - Constitutional Vitals: Temp Pulse Resp BP Pulse Ox 97.4 F L 116 H 18 138/68 94 06/07/20 08:34 06/07/20 15:27 06/07/20 08:34 06/07/20 15:27 06/07/20 15:27 Plan Follow up with: LAKEISHA MADDEN MD [Primary Care Provider] - 3-5 Days
[2020-06-07 17:24] VITALS: BP 137/75
[2020-06-10] MEDS ORDERED: THIAMINE 100 MG TAB PO SCH (10:00)
== END 2020-06-07 19:00 | DRG 640 ==
LOC: ED 17:21 → 4A 22:12 → OBSVTOIN 05-30 15:00
PROVIDERS: ADMIT Internal Medicine Geriatric Medicine; ATTEND Internal Medicine
PROC: 009U3ZX Drainage of Spinal Canal, Percutaneous Approach, Diagnostic (ICD-10-PCS; principal; 2020-06-07)
DX: E86.0 Dehydration (principal); G93.41 Metabolic encephalopathy; F23 Brief psychotic disorder; E87.6 Hypokalemia; Z20.822 Contact with and (suspected) exposure to COVID-19; R56.9 Unspecified convulsions; F43.10 Post-traumatic stress disorder, unspecified; I10 Essential (primary) hypertension; F32.9 Major depressive disorder, single episode, unspecified; F06.1 Catatonic disorder due to known physiological condition; Z79.899 Other long term (current) drug therapy; Z86.73 Personal history of transient ischemic attack (TIA), and cerebral infarction without residual deficits; Z79.891 Long term (current) use of opiate analgesic; Z79.82 Long term (current) use of aspirin; Z79.01 Long term (current) use of anticoagulants; Z87.891 Personal history of nicotine dependence
CPT/HCPCS: 36415; 62270; 62328; 70450; 70553; 71045; 80048; 80053; 81001; 82140; 82550; 82947; 82962; 83550; 84145; 84160; 84443; 85025; 85610; 85730; 86140; 86592; 87116; 87498; 87799; 89051; 95819; 96365; 96375; G0378; A9270-GY; A9575; J0515; J1650; J1953; J2060; J2270; J3411; J3480; J7030; U0003